=== PATIENT | female | born 1995 | race Caucasian/White ===

== ENCOUNTER 2022-02-12 07:14 | Outpatient (CLI) | payer BC, SELFPAY ==
--- NOTE | 2022-02-12 07:15 | CRLHL7_ITS ---
For Patients: As a result of the Cures Act, medical imaging exams and procedure reports are released immediately into your electronic medical record. You may view this report before your referring provider. If you have questions, please contact your health care provider. INDICATION: follow up dilated renal pelvis COMPARISON: 12/15/2021 TECHNIQUE: Real time greenwood scale imaging of the fetus was performed. FINDINGS: Sonographic imaging demonstrates a single living intrauterine gestation. Fetus demonstrates a regular cardiac rate of 144 beats per minute. Fetus has a vertex position. The placenta lies posterior. Amniotic fluid volume appears normal and there is a single deepest vertical pocket: 7.7 cm. The estimated weight is 1265gm which lies at the 52nd %. On the prior OB ultrasound exam dated 12/15/2021 the estimated weight was at the 45th%. BPD 80th percentile. HC 77th percentile. AC 64th percentile. FL 18th percentile. The HC/AC ratio measures 1.12 range (0.99-1.21). Mild bilateral pelviectasis is similar, measuring 4.6 millimeters on right and 2.8 millimeters on the left. IMPRESSION: Incidental minimal pelviectasis, considered normal in the 3rd trimester. Sonographic gestational age 29 weeks 1 day and sonographic due date 04/29/2022. Sonographic age 6 days ahead of the clinical age. Estimated weight 52nd percentile. Abdominal circumference 64th percentile. Dictated by Igor Gregg MD @ 02/12/2022 10:25:44 AM (Electronically Signed)
== END 2022-02-12 07:15 | disposition home or self-care (01) ==
PROVIDERS: Visit Provider Obstetrics & Gynecology
DX: O35.8XX0 Maternal care for other (suspected) fetal abnormality and damage, not applicable or unspecified (principal); Z3A.29 29 weeks gestation of pregnancy
CPT/HCPCS: 76816

== ENCOUNTER 2022-02-13 08:12 | Outpatient (CLI) | payer BC, SELFPAY ==
[2022-02-13 08:27] LABS: Glucose Fasting Check 84 mg/dl
[2022-02-13 12:57] LABS: Glucose GTT-Gestational 3 Hr 150 mg/dl (70-140)
[2022-02-13 12:57] LABS: Glucose 1 Hour Gest 178 mg/dl (70-180)
== END 2022-02-13 08:13 | disposition home or self-care (01) ==
LOC: NFLDREF 08:12
PROVIDERS: Visit Provider Obstetrics & Gynecology
DX: Z34.93 Encounter for supervision of normal pregnancy, unspecified, third trimester (principal); Z3A.28 28 weeks gestation of pregnancy
CPT/HCPCS: 82951; 82952

== ENCOUNTER 2022-03-17 21:56 | Outpatient (CLI) | payer BC, SELFPAY ==
--- NOTE | 2022-03-17 22:17 | CRLHL7_ITS ---
For Patients: As a result of the Century Cures Act, medical imaging exams and procedure reports are released immediately into your electronic medical record. You may view this report before your referring provider. If you have questions, please contact your health care provider. INDICATION: Marked variability. TECHNIQUE: Ultrasound OB pelvis transabdominal. Real-time greenwood-scale imaging of the fetus was performed without stress testing. COMPARISON: Pelvic ultrasound from 02/12/2022. FINDINGS: Single living intrauterine gestation. The placenta is fundal. Fetus heart activity: Regular cardiac rate at 139 beats per minute. Fetus has a cephalic orientation. Amniotic fluid volume appears normal. breathing movements, motion, and tone were all observed. IMPRESSION: Single viable intrauterine with a biophysical profile 03/05. Dictated by Hermes Mixon MD @ 03/17/2022 11:43:19 PM (Electronically Signed)
[2022-03-17 22:23] VITALS: BP 117/60; PULSE 82
[2022-03-17 22:24] VITALS: BP 117/60; PULSE 88; PULSE 92; RESP 18; TEMP 36.7; O2SAT 98
[2022-03-17 22:57] LABS: Fetal Fibronectin* Negative (Negative)
--- NOTE | 2022-03-18 00:24 | PC.OBNST ---
NST Note NST Note Start: 03/17/22 21:57 Freq: ONCE Status: Active Protocol: Document 03/18/22 00:21 EGM (Rec: 03/18/22 00:24 EG [id number]) NST Note 3 Para (# of births) 1 EDC 05/05/22 High Risk Factors Diabetes - Gestational Diet Controlled Patient Presented with Complaint(s) of Contractions/cramping,Other Other Complaints Patient concerned regarding increased frequency and strength of contractions and frantic movements which made it difficult to monitor heart rate on doppler at home. Reactive Yes Appropriate for Gestational Age Yes PABLO Armstrong, RN Date 03/18/22 Reactive Yes Appropriate for Gestational Age Yes PABLO Veloz, RN Date 03/18/22 OB NST charge Yes Complete NST Note via Write Note Yes The provider's electronic signature indicates the NST is reactive/appropriate for gestational age. *Note to provider: If an addendum is required, open the patient's chart and click on the note under the Nurse/Allied Health tab.
== END 2022-03-17 23:50 | disposition home or self-care (01) ==
LOC: OB OUT 21:56 → OB 23:44
PROVIDERS: Visit Provider Obstetrics & Gynecology
DX: O24.419 Gestational diabetes mellitus in pregnancy, unspecified control (principal); Z3A.31 31 weeks gestation of pregnancy
CPT/HCPCS: 59025; 76819; 84112; 99213

== ENCOUNTER 2022-04-12 13:48 | Outpatient (CLI) | payer BC, SELFPAY ==
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
--- NOTE | 2022-04-12 14:00 | CRLHL7_ITS ---
For Patients: As a result of the Century Cures Act, medical imaging exams and procedure reports are released immediately into your electronic medical record. You may view this report before your referring provider. If you have questions, please contact your health care provider. INDICATION: Third trimester scan, evaluate growth. Gestational diabetes. COMPARISON: 03/17/2022 TECHNIQUE: Real time greenwood scale imaging of the fetus was performed. FINDINGS: Sonographic imaging demonstrates a single living intrauterine gestation. Fetus demonstrates a regular cardiac rate of 141 beats per minute. Fetus has a vertex position. The placenta lies fundal. Amniotic fluid volume appears normal and there is a single deepest vertical pocket: 6.0 cm. The estimated weight is 2830gm which lies at the 36th %. On the prior OB ultrasound exam dated 02/12/2022 the estimated weight was at the 52nd%. BPD 80th percentile. HC 46th percentile. AC 34th percentile. FL 17th percentile. The HC/AC ratio measures 1.04 range (0.92-1.06). IMPRESSION: Sonographic gestational age 36 weeks 4 days and sonographic due date 05/06/2022. Good correlation with dates. Normal interval growth. Estimated weight 36th percentile. Abdominal circumference 34th percentile. Dictated by Igor Gregg MD @ 04/12/2022 2:48:03 PM (Electronically Signed)
== END 2022-04-12 13:49 | disposition home or self-care (01) ==
LOC: US 13:49
PROVIDERS: Visit Provider Obstetrics & Gynecology
DX: O24.419 Gestational diabetes mellitus in pregnancy, unspecified control (principal); Z3A.36 36 weeks gestation of pregnancy
CPT/HCPCS: 76816; 87081; 87653

== ENCOUNTER 2022-04-25 18:26 | Inpatient (IN) | payer BC, SELFPAY ==
[2022-04-25] VITALS (10 sets, daily range): BP systolic 108–130; BP diastolic 59–69; PULSE 90–101; RESP 16–20; TEMP 36.2–37; O2SAT 100; BMI 27.3
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
[2022-04-25] MEDS: MORPHINE 10 MG/ML inj IM (16:45)
[2022-04-25] MEDS: AMPICILLIN 2 GM in 0.9 % SODIUM CHLORIDE Mini-bag 100 ML IVPB (18:41)
[2022-04-25] MEDS: LACTATED RINGERS 1000 ML 1,000 ML 125 ML IV (18:41)
[2022-04-25 19:01] LABS: SARS PCR* Negative SARS-CoV-2 (Negative)
[2022-04-25 19:04] LABS: Basophils Percent Auto 0.1 % (0.0-3.0); Eosinophils Percent Auto 0.1 % (0.0-7.0); Hematocrit 40.9 % (33.0-51.0); Immature Granulocytes Abs Auto 0.12 K/uL (0.00-0.30); Lymphocytes Percent Auto 13.5 % (20-44); Mean Corpuscular HGB Conc 34 gm/dL (32-36); Mean Corpuscular Hemoglobin 30 pg (26-34); Mean Corpuscular Volume 87 fL (80-100); Monocytes Percent Auto 7.1 % (0.0-11.0); Neutrophils Percent Auto 78.3 % (42.0-72.0); Platelet Count* 160 K/uL (140-440); RDW Coefficient of Variation % 12.7 % (11.5-15.5); White Blood Count* 13.52 K/uL (4.50-11.00)
[2022-04-25 19:44] LABS: Slide Review Reflex No
[2022-04-25] MEDS: AMPICILLIN 1 GM in 0.9 % SODIUM CHLORIDE Mini-bag 100 ML IVPB (22:03)
--- NOTE | 2022-04-25 22:26 | P.LDBA_ITS ---
Subjective History of Present Illness Date Seen: 04/25/22 Narrative: Patient is being admitted to Labor and Delivery for labor. She is a 27 year old at 38 4/7 weeks gestation. She has been having contractions that are fairly regular but somewhat far apart since 0300 on 04/24/22. She had a visit this afternoon and her cervix was found to be 3 cm / 85% / -2. Contractions became stronger thereafter. She was admitted to Center after cervical change was noted on her exam. OB Problem List: 1.? Rheumatoid arthritis:? Has plan for Humira until 2.? Depression and anxiety, stable on sertraline --Patient desires to taper off in the 3rd trimester and be off prior to delivery 3.? Difficulty conceiving r/t PCOS, Conceived with letrozole. 4.? Recommended daily baby aspirin starting at 12 weeks due to history of rheumatoid arthritis 5. Mild bilateral pelviectasis measuring 4.1-4.5 millimeters. Follow-up exam in the 3rd trimester recommended (28wks). Remainder of the anatomic survey is normal. * 02/12/2022: Vtx. SDP:? 7.7 cm.? EFW 1265 g, 12 lb 13 oz, 52%.? BPD 80%, HC 70%, AC 64%, FL 18%.? Right renal pelvis 5 mm, left renal pelvis 3 mm:? Normal for gestation.? No follow-up needed 6. Frequent, painful contractions 01/22/2022 * FFN collected, neg * Wet prep, neg * SVE Long, thick, and closed * Hx of early painful ctx w/ previous beginning in 2nd trimester * Seeing chiropractor, wearing support binder, taking magnesium and calcium (doesn't help) * Continues to have regular contractions, less painful than before but consistent as of 01/25 * Offered Nifedipine 10 mg po QID PRN for contractions, Rx sent 01/25 7. Gestational diabetes A1 ? *1hr GTT 02/12/22: 143 ? *3hr GTT 02/13/22: Fast 88 (nl), 1hr 178 (nl),?2hr 167 (h),?3hr 150?(h). ? *02/14/22: Nutrition referral, glucometer, lancets and glucose strips ordered. ? *USN for EFW at 36 wks 04/12/2022:Vtx. SDP: 6.0cm. EFW:? 2830 g, 6 lb 4 oz, 36%. BPD 80%, HC 46%, AC 34%, FL 17%. 8. cardiac arrhythmia Noted on NST when the patient presented to the center on 03/17/22 w/ contractions and frantic movements Referral to [facility] for Lvl 2 USN and consultation ordered 03/18/22: both normal on 03/23/22, no arrhythmia noted. No additional testing indicated. 9.? GBS positive.? Antibiotics in labor Covid:? 2 dose, had 3rd booster. Flu: received DTAP: 03/09/22 Her full history and physical was dictated by Cristina Valencia on 04/12/22. Please see this for details. OB - H&P: Exam Physical Exam: Vital signs: Temp Pulse Resp BP Pulse Ox 98.1 F 96 16 108/59 L 100 04/25/22 18:44 04/25/22 21:46 04/25/22 18:44 04/25/22 21:46 04/25/22 21:47 Narrative: Cervix at admission, per RN: 5.5 / 80 / -1 / posterior / soft Cervix at 10:15 pM: 5.5 / 90 / -1 / midposition / soft AROM for clear fluid FHT: BAseline initially 150 at admit, rising slowly over the last hour or so to baseline of 180 / accels present / no decels / moderate variability. All blood sugars within normal ranges. OB - Problem Based A/P Additional Plan (1) Normal labor: Problem details: Now entering active phase. Category 2 status due to baseline 180. Last temp 36.5. Will give bolus and continue continuous EFW until back to normal baseline. Otherwise expectant management. Anticipate . Status: Acute (2) GBS (group B Streptococcus carrier), +RV culture, currently : Problem details: s/p 2 doses of IV ampicillin prior to AROM Status: Acute (3) Gestational diabetes: Status: Acute Plan: diet controlled, intrapartum sugars less than 120 continue to monitor per protocol (4) arrhythmia affecting , antepartum: Problem details: Current tachycardia does not represent arrhythmia; regular rhythym. Previous arrhythmia thought to be PACs Status: Acute
[2022-04-26] VITALS (27 sets, daily range): BP systolic 99–149; BP diastolic 54–78; PULSE 54–128; RESP 16–22; TEMP 36.4–37.2; O2SAT 99–100
[2022-04-26] MEDS: fentaNYL 100 MCG/2 ML inj 30 MCG INTRATHECA (02:30)
[2022-04-26] MEDS: LACTATED RINGERS 1000 ML 1,000 ML 125 ML IV (02:33)
--- NOTE | 2022-04-26 02:40 | PM.ANBPRC ---
[facility] Medical History (Updated 04/25/22 @ 22:36 by Ana Rosa Collier MD) Encounter for supervision of other normal , third trimester Fertility testing arrhythmia affecting , antepartum cardiac arrhythmia Gestational diabetes Intrauterine Leakage of amniotic fluid Painful micturition at early stage Suspected urinary tract infection Family History (Updated 01/24/22 @ 14:21 by Debbie De Dios) Mother Rheumatoid arthritis Social History Smoking Status: Never smoker Little interest or pleasure in doing things: several days Feeling down, depressed, or hopeless: more than half the days Meds Home Medications and Allergies Home Medications Medication Instructions Recorded Confirmed Type adalimumab 40 mg/0.4 mL See Rx Instructions subcut .COMPLEX 01/25/22 04/25/22 History subcutaneous pen kit prenat.vits,neda,ooy-mhhn-qloqq 1 tab PO QDAY 01/25/22 04/25/22 History sertraline 50 mg tablet 50 mg PO QDAY 04/12/22 04/25/22 History Allergies Allergy/AdvReac Type Severity Reaction Status Date / Time No Known Allergies Allergy Unknown Verified 04/25/22 13:42 Results Labs Labs: Laboratory Results - last 24 hr 04/25/22 04/25/22 04/25/22 18:01 18:20 18:20 WBC 13.52 H RBC 4.70 Hgb 14.0 Hct 40.9 MCV 87 MCH 30 MCHC 34 RDW Coeff of Kimberli 12.7 Plt Count 160 Neut % (Auto) 78.3 H Lymph % (Auto) 13.5 L Miner % (Auto) 7.1 Eos % (Auto) 0.1 Baso % (Auto) 0.1 Neut # (Auto) 10.60 H Lymph # (Auto) 1.80 Miner # (Auto) 1.00 H Eos # (Auto) 0.00 Baso # (Auto) 0.00 Abs Immat Gran (auto) 0.12 SARS-CoV-2 (PCR) Negative SARS-CoV-2 Blood Type A Positive Antibody Screen NEGATIVE Vital Signs Vital Signs: Last Vital Signs Temp 98.1 F 04/25/22 18:44 Pulse 99 04/26/22 02:38 Resp 16 04/25/22 18:44 BP 121/58 L 04/26/22 02:40 Pulse Ox 100 04/26/22 02:34 Weight: 70.085 kg Height: 160.02 cm Anesthesia Procedures Intrathecal Patient Location: OB Start Time: 02:00 Stop Time: 02:45 Start Date: 04/26/22 Stop Date: 04/26/22 Reason for Block: procedure for pain Patient Position: sitting Performed By: Francoise Serrano Preanesthetic Checklist: IV checked, site marked, risks and benefits discussed, monitors and equipment checked, pre-op evaluation, timeout performed and anesthesia consent Prep: chlorhexidine gluconate Monitoring: blood pressure monitoring, continuous pulse oximetry and heart rate Approach: midline Vertebral Space: lumbar (1-5) Needle Type: Quincke Injection Technique: single-shot Needle gauge: 25 Needle Length (cm): 10 cm
--- NOTE | 2022-04-26 02:43 | W.ANESCHARGE ---
Anesthesia Charges Start Date/Time Anesthesia Start Date: 04/26/22 Anesthesia Start Time: 02:00 Stop Date/Time Anesthesia Stop Date: 04/26/22 Anesthesia Stop Time: 02:45 Summary Emergency: No
[2022-04-26] MEDS: AMPICILLIN 1 GM in 0.9 % SODIUM CHLORIDE Mini-bag 100 ML IVPB (02:46)
[2022-04-26] MEDS: LIDOCAINE 1% MDV 20 ML INJECTION (03:33)
[2022-04-26] MEDS: OXYTOCIN 30 unit/500 ML in NS 30 UNIT/500 ML BAG 325 UNIT IVPB (03:33)
--- NOTE | 2022-04-26 03:52 | PM.OBPRCVD ---
Procedure Delivery date: 04/26/22 Procedure Done: [employer] Procedure Details: The patient is a 27 year-old G 3 P 1 woman admitted on 04/25/2022 at 38 Weeks, 4 Days gestation for labor.? Cervical exam on admission was 5.5 cm/80 % effaced/-1 station with membranes intact in vertex presentation.? Contractions were every 1.5-3 minutes.? heart rate demonstrated baseline 150 bpm with moderate variability, positive accelerations, no decelerations; a category 1 tracing.? AROM occurred at 10:05 p.m. with clear fluid. ? Labor Analgesia:? Only nitrous until more than 1 hour into 2nd stage. Thereafter, she had ITN ? Pitocin:? No ? Labor onset:? Slow progress until 5.5 cm, subsequently picked up after AROM ? Complete:? 12:55 a.m. on 04/26/2022 ? Pushing:? 12:55 a.m. on 04/26/2022 ? heart tones during active labor and second stage were notable for a baseline ranging from 160-180. Moderate variability throughout, and no recurrent decelerations. After an hour and 15 minutes of pushing, there was no descent of head. Yvan had intrathecal narcotic. Vaginal exam was consistent with OB presentation, this was confirmed on bedside ultrasound. head was lifted superiorly out of the pelvis and rotated clockwise in to an OA position. ? At 3:23 a.m. a viable female delivered in vertex RG presentation over small second-degree perineal laceration via spontaneous vaginal delivery.? was placed on maternal abdomen.? Cord was clamped and cut after it ceased to pulse.? Nose and mouth were bulb suctioned.? weight pending.? 8 at 1 minute and 9 at 5 minutes.? Shoulder dystocia: Now.? Nuchal cord: Yes, x1, loose, delivered through this. ? Placenta delivered spontaneously and complete at 3:37 a.m. with a 3 vessel cord. ? Mother and infant were stable after delivery. ? Lacerations:? Small second-degree midline perineal laceration, repaired with 3-0 Vicryl after infiltration with 9 mL of 1% lidocaine. ? Blood loss: 125 mL. Blood loss measurement type: QBL ? Sponge and needles counts are correct.
[2022-04-27 01:55] VITALS: BP 114/67; PULSE 61; RESP 16; TEMP 36.6
[2022-04-27 07:28] LABS: Hemoglobin* 11.7 gm/dL (12.0-16.0)
--- NOTE | 2022-04-27 08:02 | PM.OBDSVD1 ---
DS: Providers Provider Time Seen by Provider: 08:02 Date Seen: 04/27/22 Date of admission: 04/25/22 18:26 Primary care physician: Not a Local Provider Admitting Clinician: Sabiha Dominguez CNM Attending Physician on discharge: Sabiha Dominguez CNM DS: Diagnosis Discharge Diagnosis (1) Gestational diabetes: Status: Acute (2) Rheumatoid arthritis: Status: Acute (3) Plaque psoriasis: Status: Acute (4) Normal spontaneous vaginal delivery: Status: Acute (5) Anxiety and depression: Status: Acute (6) Lactating mother: Status: Acute (7) Second degree laceration of perineum, delivered, current hospitalization: Status: Acute Exam Const: Vital Signs, click to edit/add: Vital Signs - 24 hr 04/26/22 08:20 04/26/22 12:35 04/26/22 16:30 Temperature 99.0 F 98.5 F 97.8 F Pulse Rate [Blood Pressure Cuff] 72 54 L 64 Respiratory Rate 16 16 16 Blood Pressure [Ri ght Arm] 126/74 111/63 105/68 Oxygen Delivery Me thod Room Air Room Air Room Air 04/26/22 19:40 04/27/22 01:55 Temperature 97.6 F 97.8 F Pulse Rate [Blood Pressure Cuff] 69 61 Respiratory Rate 16 16 Blood Pressure [Ri ght Arm] 113/67 114/67 Oxygen Delivery Me thod Room Air Room Air Documenting provider has reviewed patient's vital signs: yes Common normals: no apparent distress, oriented x3, healthy appearing, alert and well nourished General appearance: cooperative and comfortable HENMT: Common normals: normocephalic Head and scalp: normocephalic Eye: General eye: normal appearance of both eyes Neck & C-Spine: Common normals: full ROM and supple General: normal visual inspection Chest: Common normals: inspection of chest normal Resp: Common normals: normal respiratory effort and clear to auscultation bilaterally Auscultation: clear to auscultation bilaterally Cardio: Common normals: regular rate and regular rhythm Rate: regular rate Rhythm: regular rhythm GI: Common normals: Normal to inspection, nondistended, normoactive bowel sounds present, soft to palpation and non-tender Palpation: soft : Common normals: external appearance normal (mild edema) Speculum exam - vagina: vaginal bleeding (Normal lochia) OB/external & speculum: Yes vaginal bleeding (Normal lochia) and Yes other (2nd degree well approximated ) Uterus: U/1 Lochia: small Back & Pelvis: Common normals: thoracic and lumbar spine normal to inspection Extremity: Common normals: normal to inspection, full ROM and no pedal edema Neuro: Common normals: oriented x3 Sensorium/orientation: alert Skin: Common normals: no rashes or lesions noted General skin exam: no rashes or lesions noted OB - DS: Summary Hospital Course Hospital Course: The patient is a 27 year old G 3 P 2 at 38.5 weeks gestation that was admitted to the Center on 04/25/22 for labor. She had an uncomplicated vaginal delivery. She delivered a viable female . She is breast feeding, which is going good. the patient has done well. Has had a bowel movement. Peripartum Data delivery method: Vaginal Laceration description: Perineal - 2nd Degree complications: none [place] Gender: Female Infant Discharge Plan: Home Status at Discharge Functional status at discharge: independent ambulation Overall status at discharge: patient is progressing back to baseline Time Spent with Patient Time attestation: Total time spent providing and/or coordinating discharge services: Discharge Plan Discharge Disposition: Home, Self-Care Date of Admission: 04/25/22 18:26 Attending Provider on Discharge: Sabiha Dominguez Primary Care Provider: Provider,Not a Local Condition: Stable Anticipated Discharge Date/Time: 04/27/22 12:16 Discharge Medications: New docusate sodium 100 mg Capsule 100 mg PO DAILY PRNQty: 100 0RF Rx Instructions: Take 1 cap 1-2 times a day as needed for constipation. ibuprofen 600 mg Tablet 600 mg PO Q6H PRNQty: 60 0RF Continued prenat.vits,neda,qax-hake-eegsg Tablet 1 tab PO QDAY adalimumab 40 mg/0.4 mL pen injector kit See Rx Instructions subcut .COMPLEX Hold Instructions: stopped at 28 wks Rx Instructions: inject one - 40 mg/0.4 mL pen every 2 weeks subcut sertraline 50 mg tablet 50 mg PO QDAY Discontinued (DME) blood-glucose meter Kit See Rx Instructions .Route Qty: 1 0RF Rx Instructions: As directed (DME) lancets [Accu-Chek Softclix Lancets] Misc See Rx Instructions .Route Qty: 200 2RF Rx Instructions: QID (DME) Blood Glucose Test Strip See Rx Instructions .Route Qty: 50 4RF Rx Instructions: QID (DME) [employer]entia countour test strips See Rx Instructions .Route .MEDSUPPLY Qty: 100 0RF Rx Instructions: QID testing (DME) [employer] countour See Rx Instructions .Route .MEDSUPPLY Qty: 1 0RF Rx Instructions: QID testing Discharge Orders: Discharge Order (Routine); Ordered 04/27/22 Ordered By: Sabiha Dominguez Patient Education: OB Over the Counter Medication Information, OB Vaginal/Breast Feeding Activity Restrictions/Additional Instructions: Follow up at 2 weeks and 6 weeks in the clinic. 2 hour glucose test with 6 week visit. Activity Level: Activity as Tolerated Discharge Diet: Regular Follow Up Appointments: Provider,Not a Local [Primary Care Provider] - Forms: MyHealth Info Instructions
[2022-04-27] MEDS: DOCUSATE SODIUM 100 MG CAPSULE PO (08:47)
[2022-04-27 08:50] VITALS: BP 121/76; PULSE 64; RESP 16; TEMP 36.6; O2SAT 98
== END 2022-04-27 10:50 | disposition home or self-care (01) | DRG 560 ==
LOC: OB OUT 18:27 → OB 18:27
PROVIDERS: Obstetrics & Gynecology; Admitting Provider Advanced Practice Midwife; Visit Provider Advanced Practice Midwife
DX: O24.420 Gestational diabetes mellitus in childbirth, diet controlled (principal); O99.824 Streptococcus B carrier state complicating childbirth; O70.1 Second degree perineal laceration during delivery; M06.9 Rheumatoid arthritis, unspecified; L40.0 Psoriasis vulgaris; O99.344 Other mental disorders complicating childbirth; F41.9 Anxiety disorder, unspecified; F32.A Depression, unspecified; Z3A.38 38 weeks gestation of pregnancy; Z37.0 Single live birth
CPT/HCPCS: 01967; 36415; 82962; 85018; 85025; 86850; 86900; 86901; 87635; A9270; J0290; J2270; J3010; J7120

== ENCOUNTER 2022-06-11 08:37 | Outpatient (CLI) | payer BC, SELFPAY ==
--- OUTSIDE RECORDS SUMMARY | 2022-06-11 08:40 | XMS_ITS | Clinical Summary ---
:1995 Author Organization [facility] Address [address] [address] Care Team Providers Name Role Phone Huyen Mandujano MD Primary Care Provider Source Comments You are receiving this document as you are listed as the primary care provider,follow-up provider, or the patient has been referred to you for consultation.This is in compliance with the Medicare and Medicaid EHR Incentive Program,which states Providers who transition their patient to another setting of careor provider of care or refers their patient to another provider of care shouldprovide summarycare record for each transition of care or referral. [employer] Allergies Active Allergy Reactions Severity Noted Date Comments Hydroxychloroquine 12/10/2019 Stomach u pset. Medications Medication Sig Dispensed Refills Start Date End Date Status ondansetron (ZOFRAN) 4 MG TK 1 T PO Q 6 H 0 12/07/19 20 Active tablet PRN medroxyPROGESTERone TK 1 T PO QD FOR 0 11/17/2019 Active (PROVERA) 10 MG tablet 10 DAYS certolizumab pegol 400 mg (2 4 Each 11 12/15/2019 Active (CIMZIA) 2 X 200 MG/ML syringes) subcu injectionIndications: on weeks 0, 2 Psoriatic Arthritis, and 4 then every L40.50 4 weeks thereafter Indications: Psoriasis associated with Arthritis, L40.50 Active Problems Problem Noted Date Psoriatic arthritis 12/10/2019 High risk medication use 12/10/2019 Episode of recurrent major depressive disorder 020 Anxiety disorder 12/10/2019 Irritable bowel syndrome without diarrhea 12/10/2019 Planned 12/10/2019 Immunizations Name Administration Dates Next Due PCV13 (Prevnar) 12/10/2019 Social History Tobacco Use Types Packs/Day Years Used Date Smoking Tobacco: Never Assessed Sex Assigned at Date Recorded Not on file Last Filed Vital Signs Vital Sign Reading Time Taken Comments Blood Pressure 115/73 12/10/2019 2:25 PM CDT Pulse 77 12/10/2019 2:25 PM CDT Temperature - - Respiratory Rate - - Oxygen Saturation - - Inhaled Oxygen Concentration - - Weight - - Height - - Body Mass Index - - Plan of Treatment Health Maintenance Due Date Last Done Comments Cervical Cancer Screening Due 1995 HepB (1) 1995 COVID-19 Vaccine (#1) 1995 HPV Vaccine (1 - 2-dose series) 02/25/2007 HIV Screening (Preventive 2012 Services) Adult Preventive Visit 02/25/2014 Influenza (#1) 2022 05/05/2020 DTaP/Tdap/Td (2 - Tdap) 08/08/2030 08/08/2020 Zoster/Shingles (1 of 2) 02/25/2046 Hep C Screening (Preventive Completed 12/10/2019 Services) Pneumococcal Aged Out 12/10/2019 No longer eligib le based on patient's age to complete this topic HepA Aged Out No longer eligib le based on patient's age to complete this topic Hib Aged Out No longer eligib le based on patient's age to complete this topic IPV (Polio) Aged Out No longer eligib le based on patient's age to complete this topic MCV4 Aged Out No longer eligib le based on patient's age to complete this topic Insurance Payer Benefit Plan / Subscriber ID Effective Phone Address T ype Group Dates PREFERREDONE PREFERREDONE [id number] 2019-Pres [phone] [address] OPEN ACCESS ent [id number] [place] [address] Care Teams Glass Blower Relationship Specialty Start Date End Date Huyen Mandujano MD PCP - General Obstetrics Gynecology 10/09/[address] [place] [address]
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
--- OUTSIDE RECORDS SUMMARY | 2022-06-11 08:40 | XMS_ITS | Encounter Summary ---
:1995 [facility] Address [address] [address] Care Team Providers Name Role Phone Huyen Mandujano MD Primary Care Provider Reason for Visit Reason Onset Date Comments Refill 12/15/2019 Encounter Details Date Type Department Care Team Description 12/15/2019 Refill [facility] [address], Refill Rheumatology [address] [place] [address] [place], [place] [id number] (Wo rk) Social History Tobacco Use Types Packs/Day Years Used Date Smoking Tobacco: Never Assessed Sex Assigned at Date Recorded Not on file documented as of this encounter Nursing Notes Sabiha Hernandez - 12/15/2019 9:14 AM CDT [facility] to [facility] pharmacy- [facility], Patient notified by letter with co-pay info. documented in this encounter Plan of Treatment Not on filedocumented as of this encounter Visit Diagnoses Diagnosis Psoriatic arthritis (HRC) Psoriatic arthropathy Planned documented in this encounter Care Teams Weather Algorithm Scientist Relationship Specialty Start Date End Date Huyen Mandujano MD PCP - General Obstetrics Gynecology 10/09/191999 [place], [place] [id number] documented as of this encounter
--- OUTSIDE RECORDS SUMMARY | 2022-06-11 08:40 | XMS_ITS | Encounter Summary ---
:1995 Author Organization Formerly [facility] Address [address], [place] [address] Care Team Providers Name Role Phone Huyen Mandujano MD Primary Care Provider Encounter Details Date Type Department Care Team Description 12/10/2019 Lab Visit [facility] 3850 Psoriatic arthritis (HRC); Laboratory High risk medication use [address] [place], [place] [id number] Social History Tobacco Use Types Packs/Day Years Used Date Smoking Tobacco: Never Assessed Sex Assigned at Date Recorded Not on file documented as of this encounter Plan of Treatment Not on filedocumented as of this encounter Procedures Procedure Name Priority Date/Time Associated Comments Diagnosis CBC AND DIFFERENTIAL Routine 12/10/2019 2:37 PM Psoriatic arth ritis Results for this PANEL CDT (HRC) procedure are in High risk the results medication use section. CREATININE / GFR Routine 12/10/2019 2:37 PM Psoriatic arthriti s Results for this CDT (HRC) procedure are in High risk the results medication use section. COMPLETE BLOOD Routine 12/10/2019 2:37 PM Psoriatic arthritis Results for this COUNT-W/DIFF CDT (HRC) procedure are in High risk the results medication use section. HEPATITIS C ANTIBODY, Routine 12/10/2019 2:37 PM Psoriatic art hritis Results for this WITH REFLEX CDT (HRC) procedure are in High risk the results medication use section. C-REACTIVE PROTEIN Routine 12/10/2019 2:37 PM Psoriatic arthri tis Results for this CDT (HRC) procedure are in High risk the results medication use section. HBSAG (HEPATITIS B Routine 12/10/2019 2:37 PM Psoriatic arthri tis Results for this SURFACE AG) CDT (HRC) procedure are in High risk the results medication use section. HEPATITIS B CORE,AB Routine 12/10/2019 2:37 PM Psoriatic arthr itis Results for this CDT (HRC) procedure are in High risk the results medication use section. ALT (SGPT) Routine 12/10/2019 2:37 PM Psoriatic arthritis Re sults for this CDT (HRC) procedure are in High risk the results medication use section. AST Routine 12/10/2019 2:37 PM Psoriatic arthritis Re sults for this CDT (HRC) procedure are in High risk the results medication use section. ALBUMIN Routine 12/10/2019 2:37 PM Psoriatic arthritis Re sults for this CDT (HRC) procedure are in High risk the results medication use section. ESR Routine 12/10/2019 2:37 PM Psoriatic arthritis Re sults for this CDT (HRC) procedure are in High risk the results medication use section. TB QUANTIFERON GOLD Routine 12/10/2019 2:36 PM Psoriatic arthr itis Results for this PLUS CDT (HRC) procedure are in High risk the results medication use section. TB QUANTIFERON GOLD Routine 12/10/2019 2:36 PM Psoriatic arthr itis Results for this PLUS MITOGEN CDT (HRC) procedure are in High risk the results medication use section. TB QUANTIFERON GOLD Routine 12/10/2019 2:36 PM Psoriatic arthr itis Results for this PLUS TB2 CDT (HRC) procedure are in High risk the results medication use section. TB QUANTIFERON GOLD Routine 12/10/2019 2:36 PM Psoriatic arthr itis Results for this PLUS TB1 CDT (HRC) procedure are in High risk the results medication use section. TB QUANTIFERON GOLD Routine 12/10/2019 2:36 PM Psoriatic arthr itis Results for this PLUS NIL CDT (HRC) procedure are in High risk the results medication use section. documented in this encounter Results (ABNORMAL) Complete Blood Count-W/Diff (12/10/2019 2:37 PM CDT) [facility] Method Time Signature WBC 6.6 3.5 - 10.5 12/10/2019 [facility] x10(9)/L 2:41 PM CDT 3850 LABORATORY RBC 5.30 (H) 3.90 - 12/10/2019 [facility] 5.03 2:41 PM CDT 3850 x10(12)/L LABORATORY Hemoglobin 15.3 12.0 - 12/10/2019 [facility] 15.5 g/dL 2:41 PM CDT 3850 LABORATORY HCT 45.0 (H) 34.9 - 12/10/2019 [facility] 44.5 % 2:41 PM CDT 3850 LABORATORY MCV 84.9 80.0 - 12/10/2019 [facility] 100.0 fL 2:41 PM CDT 3850 LABORATORY MCH 28.9 27.6 - 12/10/2019 [facility] 33.3 pg 2:41 PM CDT 3850 LABORATORY MCHC 34.0 31.5 - 12/10/2019 [facility] 35.2 g/dL 2:41 PM CDT 3850 LABORATORY RDW 12.2 11.9 - 12/10/2019 [facility] 15.5 % 2:41 PM CDT 3850 LABORATORY Platelets 193 150 - 450 12/10/2019 [facility] x10(9)/L 2:41 PM CDT 3850 LABORATORY Automated NRBC 0 <=0 /100 12/10/2019 [facility] WBC 2:41 PM CDT 3850 LABORATORY Neutrophil 3.8 1.7 - 7.0 12/10/2019 [facility] Absolute 10(9)/L 2:41 PM CDT 3850 LABORATORY Lymphocyte 2.2 1.0 - 4.8 12/10/2019 [facility] Absolute 10(9)/L 2:41 PM CDT 3850 LABORATORY Monocytes 0.4 0.2 - 0.9 12/10/2019 [facility] Absolute 10(9)/L 2:41 PM CDT 3850 LABORATORY Eosinophil 0.1 0.0 - 0.5 12/10/2019 [facility] Absolute 10(9)/L 2:41 PM CDT 3850 LABORATORY Basophil 0.0 0.0 - 0.3 12/10/2019 [facility] Absolute 10(9)/L 2:41 PM CDT 3850 LABORATORY Immature Gran % 0.5 0.0 - 0.5 12/10/2019 [facility] % 2:41 PM CDT 3850 LABORATORY Specimen Anatomical Collection Method / Collection Time Recei pancho Time (Source) Location / Volume Laterality Blood Venipuncture / 12/10/2019 2:37 12/10/2019 2:37 Unknown PM CDT PM CDT Ayanna Whitley MD LAB_1 Performing Organization Address [facility] Code Phon e Number [facility] [address] [place] [phone] [phone] HCAB - Hepatitis C Virus Khloe with Reflex In-House (12/10/2019 2:37 PM CDT) [facility] Time Signature Hepatitis C Negative Negative 12/10/2019 [facility] Antibody (Non (Non 5:59 PM CDT LABORATORY Reactive) Reactive) Comment: Antibodies to HCV not detected. Does not exclude the possiblity of exposure to HCV. Specimen Anatomical Collection Method / Collection Time Recei pancho Time (Source) Location / Volume Laterality Blood Venipuncture / 12/10/2019 2:37 12/10/2019 2:37 Unknown PM CDT PM CDT Ayanna Whitley MD LAB_1 Performing Organization Address [facility] Code Phon e Number [facility] [address] [place] [address] HBAG - Hepatitis B Surf Ag (12/10/2019 2:37 PM CDT) [facility] Method Time [facility] Hepatitis B Negative Negative 12/10/2019 [facility] Surface (Non (Non 5:59 PM CDT LABORATORY Antigen Reactive) Reactive) Specimen Anatomical Collection Method / Collection Time Recei pancho Time (Source) Location / Volume Laterality Blood Venipuncture / 12/10/2019 2:37 12/10/2019 2:37 Unknown PM CDT PM CDT Ayanna Whitley MD LAB_1 Performing Organization Address City/[facility] Code Phon e Number [facility] [address] [place] [address] HBCB - Hepatitis B Core Antibody Total (12/10/2019 2:37 PM CDT) [facility] Method Time Signature Hepatitis B Negative Negative 12/10/2019 [facility] Core Antibody (Non (Non 7:03 PM CDT LABORATORY Reactive) Reactive) Specimen Anatomical Collection Method / Collection Time Recei pancho Time (Source) Location / Volume Laterality Blood Venipuncture / 12/10/2019 2:37 12/10/2019 2:37 Unknown PM CDT PM CDT Ayanna Whitley MD LAB_1 Performing Organization Address City/[facility]/ZIP Code Phon e Number [facility] [address] [place] [address] CREAT - Creatinine (12/10/2019 2:37 PM CDT) P athologist Signature Creatinine 0.83 0.55 - 12/10/2019 [facility] 1.02 mg/dL 3:03 PM CDT [address]50 LABORATORY GFR, Estimated >60 >60 12/10/2019 [facility] mL/min/1.7 3:03 PM CDT 3850 LABORATORY 3m2 GFR, Est If >60 >60 12/10/2019 [facility] mL/min/1.7 3:03 PM CDT 3850 LABORATORY Gabonese 3m2 Specimen Anatomical Collection Method / Collection Time Recei pancho Time (Source) Location / Volume Laterality Blood Venipuncture / 12/10/2019 2:37 12/10/2019 2:37 Unknown PM CDT PM CDT Ayanna Whitley MD LAB_1 Performing Organization Address [facility]/ZIP Code Phon e Number [facility] [address] [place], [place] [phone] [place] [phone] ALB - Albumin Only (Serum) (12/10/2019 2:37 PM CDT) P athologist Signature Albumin 3.9 3.5 - 5.0 12/10/2019 [facility] g/dL 3:03 PM CDT 3850 LABORATORY Specimen Anatomical Collection Method / Collection Time Recei pancho Time (Source) Location / Volume Laterality Blood Venipuncture / 12/10/2019 2:37 12/10/2019 2:37 Unknown PM CDT PM CDT Ayanna Whitley MD LAB_1 Performing Organization Address City/[facility]/ZIP Code Phon e Number [facility] [address] [place], [place] [address] [address] ALT - Alanine Aminotransferase (12/10/2019 2:37 PM CDT) athologist Signature ALT (SGPT) 13 0 - 55 U/L 12/10/2019 [facility] 3:03 PM CDT 3850 LABORATORY Specimen Anatomical Collection Method / Collection Time Recei pancho Time (Source) Location / Volume Laterality Blood Venipuncture / 12/10/2019 2:37 12/10/2019 2:37 Unknown PM CDT PM CDT Ayanna Whitley MD LAB_1 Performing Organization Address City/[facility]/ZIP Code Phon e Number [facility] [address] [place], [place] [phone] [address] AST - Aspartate Aminotransferase (12/10/2019 2:37 PM CDT) athologist Signature AST (SGOT) 14 10 - 40 U/L 12/10/2019 [facility] 3:03 PM CDT 3850 LABORATORY Specimen Anatomical Collection Method / Collection Time Recei pancho Time (Source) Location / Volume Laterality Blood Venipuncture / 12/10/2019 2:37 12/10/2019 2:37 Unknown PM CDT PM CDT Ayanna Whitley MD LAB_1 Performing Organization Address City/[facility]/ZIP Code Phon e Number [facility] [address] [place], [place] [address] [phone] ESR - Sedimentation Rate (12/10/2019 2:37 PM CDT) [facility] Method Time Signature Sedimentation Rate 5 0 - 20 12/10/2019 [facility] ARK mm/hr 3:26 PM CDT 3850 LABORATORY Specimen Anatomical Collection Method / Collection Time Recei pancho Time (Source) Location / Volume Laterality Blood Venipuncture / 12/10/2019 2:37 12/10/2019 2:37 Unknown PM CDT PM CDT Ayanna Whitley MD LAB_1 Performing Organization Address City/[facility]/ZIP Code Phon e Number [facility] [address] [place], [place] [phone] [address] CRP - C Reactive Protein (12/10/2019 2:37 PM CDT) athologist Signature C-Reactive <0.5 0.0 - 0.7 12/10/2019 [facility] Protein mg/dL 3:03 PM CDT 3850 LABORATORY Specimen Anatomical Collection Method / Collection Time Recei pancho Time (Source) Location / Volume Laterality Blood Venipuncture / 12/10/2019 2:37 12/10/2019 2:37 Unknown PM CDT PM CDT Ayanna Whitley MD LAB_1 Performing Organization Address City/[facility] Phon e Number [facility] [address] [place], [place] [phone] LAB[address] [facility] [address] TB QuantiFERON Gold Plus Mitogen (12/10/2019 2:36 PM CDT) athologist Signature MITOGEN >10.000 IU/mL 12/14/2019 [facility] 12:16 PM CDT LABORATORY Specimen Anatomical Collection Method / Collection Time Recei pancho Time (Source) Location / Volume Laterality Blood Venipuncture / 12/10/2019 2:36 12/10/2019 2:37 Unknown PM CDT PM CDT Ayanna Whitley MD LAB_1 Performing Organization Address [facility] Phon e Number [facility] [address] [place] [address] TB QuantiFERON Gold Plus TB2 (12/10/2019 2:36 PM CDT) athologist Signature TB2 0.028 IU/mL 12/14/2019 [facility] 12:18 PM CDT LABORATORY Specimen Anatomical Collection Method / Collection Time Recei pancho Time (Source) Location / Volume Laterality Blood Venipuncture / 12/10/2019 2:36 12/10/2019 2:37 Unknown PM CDT PM CDT Ayanna Whitley MD LAB_1 Performing Organization Address City/[facility] Phon e Number [facility] [address] [place] [address] TB QuantiFERON Gold Plus TB1 (12/10/2019 2:36 PM CDT) P athologist Signature TB1 0.035 IU/mL 12/14/2019 [facility] 12:19 PM CDT LABORATORY Specimen Anatomical Collection Method / Collection Time Recei pancho Time (Source) Location / Volume Laterality Blood Venipuncture / 12/10/2019 2:36 12/10/2019 2:37 Unknown PM CDT PM CDT Ayanna Whitley MD LAB_1 Performing Organization Address City/State/ZIP Code Phon e Number [facility] [address] [place] [address] TB QuantiFERON Gold Plus NIL (12/10/2019 2:36 PM CDT) Patholo gist Method Time Signature TB QuantiFERON M. M. 12/14/2019 [facility] Gold Plus tuberculosis tuberculosis 1:07 PM LABORATORY infection NOT infection NOT CDT likely likely NIL 0.009 IU/mL 12/14/2019 [facility] 1:07 PM LABORATORY CDT TB1-NIL 0.03 IU/mL 12/14/2019 [facility] 1:07 PM LABORATORY CDT TB2-NIL 0.02 IU/mL 12/14/2019 [facility] 1:07 PM LABORATORY CDT Mitogen-NIL >9.99 IU/mL 12/14/2019 [facility] 1:07 PM LABORATORY CDT Specimen Anatomical Collection Method / Collection Time Recei pancho Time (Source) Location / Volume Laterality Blood Venipuncture / 12/10/2019 2:36 12/10/2019 2:37 Unknown PM CDT PM CDT Narrative [facility] - 12/14/2019 1:07 P M CDT Nil ?TB1-Nil ? TB2-Nil ?Mitogen-Nil ??Result ?Interpretation (IU/ml) ??(IU/mL) ? (IU/mL) ?(IU/mL) <=8.0 ? >=0.35 & ? Any ?Any ?Positive ?M. tuberculosis ?>=25% Nil ?infection likely <=8.0 ? Any ?>=0.35 & ? Any ?Positive ?M. tuberculosis ? >=25% Nil ? infection likely <=8.0 ? <0.35 or ? <0.35 or ? >=0.50 ? Negative ?M. tuberculosis ?>=0.35 & ? >=0.35 & ?infection NOT ?<25% Nil ? <25% Nil ?likely <=8.0 ? <0.35 or ? <0.35 or ? <0.50 ? Indeterminate ??M. tuberculosis ?>=0.35 & ? >=0.35 & ?infection cannot ?<25% Nil ? <25% Nil ?be determined >8.0 ?Any ?Any ?Any ? Indeterminate ??M. tuberculosis ? infection cannot ? be determined. Important: Diagnosing or excluding tuber culosis disease, and assessing the probability of LTBI, requires a combination of epidemiological, historical, medical, and diagnostic findings that should be emily en into account when interpreting QFT-Pl us results. See general guidance on the diagnosis and treatment of TB disease and LTBI (https://www.cdc.gov/tb/publications/guidelines/default.htm). The magnitude of the measured IFN-gamma level cannot be correlated to stage or degree of infection, level of immune responsiveness, or likelihood for progression to active disease. A positive TB respons e in persons who are negative to Mitogen is rare, but has been seen in patients with TB disease. This indicates the IFN-gamma response to TB antigens is greater than that to Mitogen, which is possible a s the level of Mitogen does not maximall y stimulate IFN-gamma production by lymphocytes. Ayanna Whitley MD LAB_1 Performing Organization Address City/State/ZIP Code Phon e Number [facility] [address] [place] [address] documented in this encounter Visit Diagnoses Diagnosis Psoriatic arthritis (HRC) Psoriatic arthropathy High risk medication use Encounter for long-term (current) use of other medications documented in this encounter Care Teams Mold Closer Relationship Specialty Start Date End Date Huyen Mandujano MD PCP - General Obstetrics Gynecology 10/09/191999 [place] [address] documented as of this encounter
--- OUTSIDE RECORDS SUMMARY | 2022-06-11 08:40 | XMS_ITS | Encounter Summary ---
:1995 Author Organization [facility] Address [address] [place] [address] Care Team Providers Name Role Phone Huyen Mandujano MD Primary Care Provider Reason for Visit Reason Comments Future Appointments Tried accessing [facility] re Encounter Details Date Type Department Care Team Description 12/08/2019 Notes/Orders [facility] [address], Rheumatology MD Ayanna [address] [place] [address] [place] [address] [phone] (Wo rk) Social History Tobacco Use Types Packs/Day Years Used Date Smoking Tobacco: Never Assessed Sex Assigned at Date Recorded Not on file documented as of this encounter Plan of Treatment Not on filedocumented as of this encounter Visit Diagnoses Not on filedocumented in this encounter Care Teams Patient Navigator Relationship Specialty Start Date End Date Huyen Mandujano MD PCP - General Obstetrics Gynecology 10/09/191999 [place] [address] documented as of this encounter
--- OUTSIDE RECORDS SUMMARY | 2022-06-11 08:40 | XMS_ITS | Encounter Summary ---
:1995 Author Organization [facility] Address [address] [place] [address] Care Team Providers Name Role Phone Huyen Mandujano MD Primary Care Provider Encounter Details Date Type Department Care Team Description 01/01/2020 Notes/Orders [facility] [address], Rheumatology MD Ayanna [address] [place] [address] [place] [address] [phone] (Wo rk) Social History Tobacco Use Types Packs/Day Years Used Date Smoking Tobacco: Never Assessed Sex Assigned at Date Recorded Not on file documented as of this encounter Plan of Treatment Not on filedocumented as of this encounter Visit Diagnoses Not on filedocumented in this encounter Care Teams Adult Basic Education Instructor Relationship Specialty Start Date End Date Huyen Mandujano MD PCP - General Obstetrics Gynecology 10/09/191999 [place] [address] documented as of this encounter
--- OUTSIDE RECORDS SUMMARY | 2022-06-11 08:40 | XMS_ITS | Encounter Summary ---
:1995 [facility] Address [address] [place] [address] Care Team Providers Name Role Phone Huyen Mandujano MD Primary Care Provider Reason for Visit Reason Comments CONSULT Encounter Details Date Type Department Care Team Description 12/10/2019 Office Visit [facility] [address] arthritis (HRC) (Primary Dx); Rheumatology MD Ayanna High risk medication use; [address] [place] [address] [phone] (Wo rk) Social History Tobacco Use Types Packs/Day Years Used Date Smoking Tobacco: Never Assessed Sex Assigned at Date Recorded Not on file documented as of this encounter Last Filed Vital Signs Vital Sign Reading Time Taken Comments Blood Pressure 115/73 12/10/2019 2:25 PM CDT Pulse 77 12/10/2019 2:25 PM CDT Temperature - - Respiratory Rate - - Oxygen Saturation - - Inhaled Oxygen Concentration - - Weight - - Height - - Body Mass Index - - documented in this encounter Progress Notes Ayanna Whitley MD - 12/10/2019 1:30 PM CDT Subjective: I was requested by Dr. Huyen Mandujano to evaluate the patient for psoriatic arthritis. History of present illness: A 24-year-old female who came in here for an evaluation and continuing care for psoriatic arthritis. The patient started having symptoms approximately 4 years ago when she was 20 years old. She noticedthat her both knees especially on the left more than the right side became swollen for unclear reason. Although she was active growing up playing sport, she did not recall of having had an obvious injury or trauma before the onset. The degree of swelling can fluctuate. Subsequently, she also developedsimilar symptoms over both ankles and right wrist. The swelling of the right wrist and ankles can fluctuate as well. The symptoms are associated with significant morning stiffness which lasts 1-2 hours. She was subsequently evaluated with her automatic lathe tender at [facility]. This outside record was not available. She was told to have rheumatoid arthritis but the blood tests were negative for rheumatoid arthritis. Note that she did not have clinical psoriasis at that time. She was treated with h ydroxychloroquine. Although hydroxychloroquine seemed to be somewhat helpful for her joint symptoms,it caused significant GI intolerance. She also developed psoriasis while taking hydroxychloroquine. This was subsequently discontinued and replaced with sulfasalazine. Sulfasalazine, however, was not affective. She subsequently transferred her rheumatology care to Dr[facility] of [facility]. Dr. Hanna decided to use methotrexate for her. The dose was slowly increased to 15 mg weekly. This outside records were available for me to review. She was found to have negative CHARLES, rheumatoid factor and CCP. The diagnosis of psoriatic arthritis was made. According to her, methotrexate was quite helpful to help for both psoriasis and her joint symptoms. However, she had to discontinue methotrexate a year ago when she was and started thinking about trying to conceive. She is not currently. She is [facility] She would like to know what medication can be used while trying to conceive and during . Her psoriasis has come back since she stopped methotrexate. They are located over left anterior leg,scalp areas. Her joint symptoms have become more as well. They involve most over both knees, and both ankle areas. Her right wrist is not swollen currently. She has no significant axial joint symptoms.She also reported no prior or history of ocular symptoms to suggest iritis/uveitis, GI symptoms to suggest inflammatory bowel disease, swollen tendon insertion points to suggest enthesitis or dactylitis. No known ischemic heart disease/congestive heart failure, hepatic/renal disease, prior blood transfusion, history of unexplained pericardial/pleural effusion, history of unexplained nephritis/proteinuria, bleeding tendency, peptic ulcer disease/GI bleeding. Her maternal uncle has psoriasis. A few cousins also have psoriasis. Mother has rheumatoid arthritis. Maternal grandmother has gout and rheumatoid arthritis. An uncle also has rheumatoid arthritis. There is no obvious family history of psoriatic arthritis, inflammatory bowel disease, iritis/uveitis, spondylitis, systemic lupus or lupus related conditions, gout or pseudogout. A complete review of the systems is otherwise unremarkable except for anxiety and history of depression. Past Medical History: Psoriasis/psoriatic arthritis. Irritable bowel syndrome. Myopia. Major depression. Anxiety disorder. 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 Never a smoker. She drinks alcohol infrequently. . She is trying to conceive at the moment. Current medications: Please see the most updated medication lists in the EMR. These are reviewed. Adverse drug reactions: Hydroxychloroquine was associated with GI side effects. Physical Examination: BP 115/73 (BP Location: Left Arm, BP Cuff Size: Regular) Pulse 77 General appearance: A young female who was not in acute physical distress. Skin: Typical psoriatic plaques over the right-sided frontal area, bilateral post auricular hair lines, left anterior leg. Few pitted nails of fingers. No tophus, nodules, open-wound ulcers, Raynaud changes, telangiectasia, sclerodermatous and dermatomyositis skin changes, or anything suggesting vascul itis, erythema nodosum. Normal nailfold capillaries. HEENT: Psoriasis on the scalp as described above. No conjunctivitis, scleritis or active uveitis or synaechia. Normal extra ocular movements. No sinus tenderness. No malar rash, discoid rash, oral or nasal mucosal ulcers. No nasal septal perforation. No thyromegaly. Respiratory: Normal respiratory effort. Lungs are clear with good breath sounds. Heart: RR without audible murmurs, rubs, or gallops. Musculoskeletal exams: All 4 extremities were examined. Minimal right knee effusion as clinically detectable by positive bulge sign. No significant effusion on the left knee. Negative Crystal's test. Negative drawer sign. Mild tenderness across ankle joints on both sides with minimal possible synovitis on the left ankle. No significant synovitis/inflammatory arthritis/dactylitis or effusion in any other remaining joints. Normal gait, normal muscle power and tone. Laboratory exams: No laboratory evaluation within [facility]. Outside records through Care Everywhere: On 06/17/2018, normal ALT/AST. White blood cell 8.6, hemoglobin 14, platelet count 197. On 01/28/2018, white blood cell 8.6, hemoglobin 14.6, platelet count 185. Normal serum electrolytes. Serum creatinine 0.86. Total albumin 4.0, normal total protein and globulin. Normal alkaline phosphatase, AST/ALT. On 03/29/2017, white blood cells 7.2, hemoglobin 15, platelet count 201. Serum creatinine 0.86. Normal AST/ALT. On 03/25/2017, negative TB gold QuantiFERON. On 07/17/2016, ESR 12. On 08/08/2015, negative SSB, SSA-60/52, ESR 13, C-reactive protein 0.27. Assessment and plans: 1. Psoriatic arthritis 2. Wish to become , planned . 3. Previous failed hydroxychloroquine (GI intolerance), sulfasalazine (ineffective) Pain is rated as 3.5. RAPID 3 score is 8.5. The patient has clinical psoriasis. She also has mild right knee joint effusion, mild synovitis leftwrist joint with significant morning stiffness. She also reported intermittent right wrist swelling and left knee swelling which are not found on examination. This clinical presentation is consistent with psoriatic arthritis involving peripheral joints. She has not had inflammatory back symptoms to suggest spondylitis associated with psoriatic arthritis, GI symptoms to suggest inflammatory bowel disease or ocular symptoms to suggest iritis/uveitis. As the patient is actively having an evaluation for ongoing infertility and planning to conceive, medication which is teratogenic should be avoided. I discussed with the patient about my clinical impression as above. Information related to medications which are decently safe, completely safe, highly recommended/conditionally recommended and contraindicated to be used before conception, during conception, and during nursing was printed out for her to review. I told her that Tylenol is safe although this is not usually affective. Nonsteroidal anti-inflammatory medication should be avoided during pregnancies especially third trimester to avoid problems related to persistent PDA. Sulfasalazine and hydroxychloroquine are decently safe to be used during pregnan cy but they were either not tolerated (hydroxychloroquine) or not effective (sulfasalazine). Methotrexate and leflunomide are contraindicated. We do not have good data regarding safety during pregnancyfor abatacept, SHANNA inhibitor (Xeljanz), apremilast (Otezla). The low-dose prednisone does not cross the placenta and this is usually save although higher dose more than 20-30 mg a day has been shown to possibly cross placenta and rarely can be associated with cleft lips/palate. The intra- articular cortisone injection is safe. We DO have good safety data to be used before conception, during conception after conception for TNFblockers Cimzia. This will be my first choice to be recommended for her. The other TNF blockers including Enbrel, Humira and Remicade also have decent safety data to be used during but the data is not as strong as Cimzia. I discussed with her about side effects and benefits of TNF blockers. Discussed with the patient about side effects of TNF blockers. These include injected site reaction/infusion reaction, increased risks of infections/opportunistic infections/reactivation of TB, rare tumors/cancers, lupus-like conditions, multiple sclerosis-like condition, worsening heart failure, rare cytopenia. Through the shared decision-making process, we mutually agreed to use Cimzia. I will put her on Cimzia 400 mg on day 1, day 2 weeks, they 4 weeks, then 400 mg every 4 weeks. She will have blood tests today for CBC metabolic profile, sed rate and CRP, T spot, hepatitis-B and C serologies. If Cimzia is not covered by her insurance, the alternative TNF emeli will be used instead. Prevnar was recommended and given to her today. Influenza vaccination when this is available in fall. Pneumovax will be given approximately 8 weeks or longer after Prevnar. I will correspond with her regarding the blood test results. I suggest a clinical follow-up again in2 months. She was happy with the plan. Total time 60 minutes, 40 minutes counseling. CC: Huyen Mandujano MD [address] [place] [address] documented in this encounter Plan of Treatment Not on filedocumented as of this encounter Results HCAB - Hepatitis C Virus Khloe with Reflex In-House (12/10/2019 2:37 PM CDT) [facility] Method Time Signature Hepatitis C Negative Negative 12/10/2019 [facility] Antibody (Non (Non 5:59 PM CDT LABORATORY Reactive) Reactive) Comment: Antibodies to HCV not detected. Does not exclude the possiblity of exposure to HCV. Specimen Anatomical Collection Method / Collection Time Recei pancho Time (Source) Location / Volume Laterality Blood Venipuncture / 12/10/2019 2:37 12/10/2019 2:37 Unknown PM CDT PM CDT Ayanna Whitley MD LAB_1 Performing Organization Address [facility] Phon e Number [facility]ORATORY [facility] [place] [address] HBAG - Hepatitis B Surf Ag (12/10/2019 2:37 PM CDT) [facility] Method Time Signature Hepatitis B Negative Negative 12/10/2019 [facility] Surface (Non (Non 5:59 PM CDT LABORATORY Antigen Reactive) Reactive) Specimen Anatomical Collection Method / Collection Time Recei pancho Time (Source) Location / Volume Laterality Blood Venipuncture / 12/10/2019 2:37 12/10/2019 2:37 Unknown PM CDT PM CDT Ayanna Whitley MD LAB_1 Performing Organization Address [facility] Phon e Number [facility] [address] [place] [address] HBCB - Hepatitis B Core Antibody Total (12/10/2019 2:37 PM CDT) [facility] Method [place] Signature Hepatitis B Negative Negative 12/10/2019 [facility] Core Antibody (Non (Non 7:03 PM CDT LABORATORY Reactive) Reactive) Specimen Anatomical Collection Method / Collection Time Recei pancho Time (Source) Location / Volume Laterality Blood Venipuncture / 12/10/2019 2:37 12/10/2019 2:37 Unknown PM CDT PM CDT Ayanna Whitley MD LAB_1 Performing Organization Address [facility] Phon e Number [facility] [address] [place] [address] CREAT - Creatinine (12/10/2019 2:37 PM CDT) athologist Signature Creatinine 0.83 0.55 - 12/10/2019 [facility] 1.02 mg/dL 3:03 PM CDT [address] LABORATORY GFR, Estimated >60 >60 12/10/2019 [facility] mL/min/1.7 3:03 PM CDT 3850 LABORATORY 3m2 GFR, Est If >60 >60 12/10/2019 [facility] mL/min/1.7 3:03 PM CDT [address] LABORATORY [place] 3m2 Specimen Anatomical Collection Method / Collection Time Recei pancho Time (Source) Location / Volume Laterality Blood Venipuncture / 12/10/2019 2:37 12/10/2019 2:37 Unknown PM CDT PM CDT Ayanna Whitley MD LAB_1 Performing Organization Address [facility]/ZIP [facility] Phon e Number [place] [address] [place] [address] [phone] ALB - Albumin Only (Serum) (12/10/2019 2:37 PM CDT) athologist Signature Albumin 3.9 3.5 - 5.0 12/10/2019 [facility] g/dL 3:03 PM CDT [address] LABORATORY Specimen Anatomical Collection Method / Collection Time Recei pancho Time (Source) Location / Volume Laterality Blood Venipuncture / 12/10/2019 2:37 12/10/2019 2:37 Unknown PM CDT PM CDT Ayanna Whitley MD LAB_1 Performing Organization Address [facility]/ZIP Code Phon e Number [facility] [address] [place] [address] [address] ALT - Alanine Aminotransferase (12/10/2019 2:37 PM CDT) athologist Signature ALT (SGPT) 13 0 - 55 U/L 12/10/2019 [facility] 3:03 PM CDT [address] LABORATORY Specimen Anatomical Collection Method / Collection Time Recei pancho Time (Source) Location / Volume Laterality Blood Venipuncture / 12/10/2019 2:37 12/10/2019 2:37 Unknown PM CDT PM CDT Ayanna Whitley MD LAB_1 Performing Organization Address [facility]/ZIP [facility] Phon e Number [facility] [address] [place], [place] [phone] [address] AST - Aspartate Aminotransferase (12/10/2019 2:37 PM CDT) athologist Signature AST (SGOT) 14 10 - 40 U/L 12/10/2019 [facility] 3:03 PM CDT [address] LABORATORY Specimen Anatomical Collection Method / Collection Time Recei pancho Time (Source) Location / Volume Laterality Blood Venipuncture / 12/10/2019 2:37 12/10/2019 2:37 Unknown PM CDT PM CDT Ayanna Whitley MD LAB_1 Performing Organization Address [facility]/ZIP Code Phon e Number [facility] [address] [place], [place] [address] [address] ESR - Sedimentation Rate (12/10/2019 2:37 PM CDT) [facility] gist Method Time Signature Sedimentation Rate 5 0 - 20 12/10/2019 [facility] ARK mm/hr 3:26 PM CDT [address] LABORATORY Specimen Anatomical Collection Method / Collection Time Recei pancho Time (Source) Location / Volume Laterality Blood Venipuncture / 12/10/2019 2:37 12/10/2019 2:37 Unknown PM CDT PM CDT Ayanna Whitley MD LAB_1 Performing Organization Address [facility]/ZIP Code Phon e Number [facility] [address] [place], [place] [phone] [address] CRP - C Reactive Protein (12/10/2019 2:37 PM CDT) athologist Signature C-Reactive <0.5 0.0 - 0.7 12/10/2019 [facility] Protein mg/dL 3:03 PM CDT [address] LABORATORY Specimen Anatomical Collection Method / Collection Time Recei pancho Time (Source) Location / Volume Laterality Blood Venipuncture / 12/10/2019 2:37 12/10/2019 2:37 Unknown PM CDT PM CDT Ayanna Whitley MD LAB_1 Performing Organization Address City/State/ZIP Code Phon e Number [facility] [address] [place], [place] [address] [address] documented in this encounter Visit Diagnoses Diagnosis Psoriatic arthritis (HRC) - Primary Psoriatic arthropathy High risk medication use Encounter for long-term (current) use of other medications Planned documented in this encounter Care Teams Corporate Claims Examiner Relationship Specialty Start Date End Date Huyen Mandujano MD PCP - General Obstetrics Gynecology 10/09/191999 [place] [address] documented as of this encounter
--- OUTSIDE RECORDS SUMMARY | 2022-06-11 08:40 | XMS_ITS | Encounter Summary ---
:1995 Author [facility] Address [address] [place] [address] Care Team Providers Name Role Phone Huyen Mandujano MD Primary Care Provider Reason for Visit Reason Comments Medication Questions Encounter Details Date Type Department Care Team Description 12/22/2019 Telephone [facility] [address] on Questions Rheumatology MD Ayanna [address] [place] [address] [place] [address] [phone] (Wo rk) Social History Tobacco Use Types Packs/Day Years Used Date Smoking Tobacco: Never Assessed Sex Assigned at Date Recorded Not on file documented as of this encounter Nursing Notes Lien Ocasio RN - 12/22/2019 2:01 PM CDT Patient given information and verbalized understanding. Ayanna Whitley MD - 12/22/2019 1:55 PM CDT If she thinks that her psoriasis and psoriatic arthritis are still tolerable with only as needed ibuprofen or naproxen (for joint pain), she can delay Cimzia until she is . The ibuprofen or naproxen shold be stopped when she is . Odette Li - 12/22/2019 1:45 PM CDT Pt calling, she wonders if she can delay starting Cimzia because she stated that her OBGYN doctor doesn't feel comfortable with her starting it while she is currently going through fertility treatment with clomid. She would like to start it once she becomes . Please advise. Pt wonders if she can be treated with prednisone for her current aches and pains from the las visit on 12/10/19. Pharmacy verified. documented in this encounter Plan of Treatment Not on filedocumented as of this encounter Visit Diagnoses Not on filedocumented in this encounter Care Teams Dna Analyst Relationship Specialty Start Date End Date Huyen Mandujano MD PCP - General Obstetrics Gynecology 10/09/191999 [place] [address] documented as of this encounter
[2022-06-11 08:52] LABS: Glucose Fasting Check 83 mg/dl (60-115)
[2022-06-11 11:39] LABS: Glucose Fasting 88 mg/dl (70-95)
[2022-06-11 11:39] LABS: Glucose 2 Hour 94 mg/dl (70-95)
== END 2022-06-11 08:38 | disposition home or self-care (01) ==
LOC: NFLDREF 08:38
PROVIDERS: Visit Provider Obstetrics & Gynecology
DX: O24.419 Gestational diabetes mellitus in pregnancy, unspecified control (principal)
CPT/HCPCS: 82947; 82950

== ENCOUNTER 2022-09-05 15:00 | Outpatient (RCR) | payer BC, SELFPAY | END 2022-11-29 11:06 | disposition home or self-care (01) | PROVIDERS: Visit Provider Obstetrics & Gynecology | DX: O80 Encounter for full-term uncomplicated delivery (principal); N81.89 Other female genital prolapse; R10.2 Pelvic and perineal pain; R10.30 Lower abdominal pain, unspecified; R27.8 Other lack of coordination; Z51.89 Encounter for other specified aftercare | CPT/HCPCS: 97110; 97112; 97140; 97162; 97535 ==

== ENCOUNTER 2022-09-21 15:57 | Outpatient (CLI) | payer BC, SELFPAY ==
--- NOTE | 2022-09-21 16:00 | CRLHL7_ITS ---
For Patients: As a result of the Century Cures Act, medical imaging exams and procedure reports are released immediately into your electronic medical record. You may view this report before your referring provider. If you have questions, please contact your health care provider. INDICATION: Right upper quadrant pain TECHNIQUE: Ultrasound abdomen limited. Sonographic images of the right upper quadrant were obtained using greenwood-scale and color Doppler images. COMPARISON: None FINDINGS: Liver: Normal in size and echotexture. No masses. No intrahepatic biliary dilatation. Gallbladder: Cholelithiasis. Normal wall thickness. No pericholecystic fluid. Common bile duct: 3 mm. Pancreas: Normal. Right kidney: 9.8 cm. Normal echotexture and cortex. No masses, stones, or hydronephrosis. Vasculature: Proximal abdominal aorta is normal. IMPRESSION: Cholelithiasis in an otherwise normal-appearing gallbladder. Normal common bile duct. Dictated by Igor Hickman MD @ 09/21/2022 5:28:41 PM (Electronically Signed)
== END 2022-09-21 15:58 | disposition home or self-care (01) ==
LOC: US 15:58
PROVIDERS: Visit Provider Family Medicine
DX: R10.11 Right upper quadrant pain (principal); K80.20 Calculus of gallbladder without cholecystitis without obstruction
CPT/HCPCS: 76705

== ENCOUNTER 2022-10-29 14:21 | Outpatient (CLI) | payer BC, SELFPAY ==
[2022-10-29 14:31] LABS: Hemoglobin* 14.7 gm/dL (12.0-16.0); Mean Corpuscular HGB Conc 33 gm/dL (32-36); Mean Corpuscular Hemoglobin 29 pg (26-34); Mean Corpuscular Volume 87 fL (80-100); Platelet Count* 199 K/uL (140-440); Red Blood Count 5.06 m/uL (4.00-5.20); White Blood Count* 6.87 K/uL (4.50-11.00)
[2022-10-29 14:32] LABS: Slide Review Reflex No
[2022-10-29 22:00] LABS: Chloride* 106 mmol/L (96-114); Sodium* 139 mmol/L (135-149)
[2022-10-29 22:02] LABS: Creatinine* 0.7 mg/dL (0.5-1.5); Estimated Glomerular Filt Rate 122 ml/min
[2022-10-29 22:03] LABS: Blood Urea Nitrogen* 20 mg/dL (5-24); Calcium* 9.1 mg/dL (8.4-10.6); Carbon Dioxide* 26 mmol/L (20-32); Glucose* 85 mg/dL (60-115)
== END 2022-10-29 14:22 | disposition home or self-care (01) ==
LOC: FRMREF 14:22
PROVIDERS: Visit Provider Family Medicine
DX: Z01.818 Encounter for other preprocedural examination (principal); K80.50 Calculus of bile duct without cholangitis or cholecystitis without obstruction; M06.9 Rheumatoid arthritis, unspecified
CPT/HCPCS: 80048; 85027

== ENCOUNTER 2022-11-05 08:24 | Day surgery (SDC) | payer BC, SELFPAY ==
[2022-11-05] VITALS (13 sets, daily range): BP systolic 74–110; BP diastolic 44–64; PULSE 46–59; RESP 11–16; TEMP 36.1–36.4; O2SAT 89–98; BMI 24.1
[2022-11-05] MEDS: LACTATED RINGERS 1000 ML 1,000 ML 100 ML IV ×2 (08:20→10:37)
[2022-11-05] MEDS: SODIUM CHLORIDE 0.9 % (FLUSH) 10 ML SYRINGE IVF (08:59)
[2022-11-05 09:39] LABS: HCG Qualitative* Negative (Negative)
--- NOTE | 2022-11-05 09:57 | W.ANESCHARGE ---
Anesthesia Charges Start Date/Time Anesthesia Start Date: 11/05/22 Anesthesia Start Time: 10:10 Stop Date/Time Anesthesia Stop Date: 11/05/22 Anesthesia Stop Time: 11:42
[2022-11-05] MEDS: CEFAZOLIN 2 GM INJ IVP (10:15)
[2022-11-05] MEDS: BUPIVACAINE 0.25% 30 ML INJECTION (10:27)
--- NOTE | 2022-11-05 11:27 | P.GSOP_ITS ---
Operative Note Date of procedure: 11/05/22 Pre-op diagnosis: 1. Biliary colic. Post-op diagnosis: 1. Biliary colic. 2. Mild acute cholecystitis. Type of Procedure: 1. Laparoscopic cholecystectomy. Indications: 27-year-old female on Humira was seen in clinic for evaluation of a recurrent episodes of epigastric and right upper quadrant abdominal pain. Patient is 5 months . Patient had a severe episode of abdominal pain in July 2022. The pain was described as sharp and radiating to her back. The pain spontaneously resolved and patient initially thought that was related to COVID, which she subsequently developed. However, 1 month later she developed similar episodes radiating to her back. This episode lasted several hours and spontaneously resolved. Since then, she has been noticing dull painful episodes in the right upper quadrant after eating fatty food. Patient minimized her fatty food intake to control her symptoms. Patient's gallbladder ultrasound showed cholelithiasis with no gallbladder wall thickening. There was no evidence of pericholecystic fluid and her common bile duct was normal. On clinical exam patient had no tenderness to palpation in epigastrium and negative Dorsey sign. Given patient's clinical history and her presentation in the period, biliary colic was suspected, and laparoscopic cholecystectomy was recommended. The procedure was discussed in detail. The risks associated procedure including infection, bleeding, injury to intra-abdominal organs, and injury to the common bile duct were all discussed with the patient, and she agreed to proceed. Procedure Description: After discussing the risks and benefits of the procedure, the patient signed informed consent.? The operative site was marked and the patient was brought to the operating room and placed on the operating table in supine position.? Care was taken to pad the patient's pressure points.?? The patient was then intubated by anesthesia.?? The operative site was then prepped and draped in the usual sterile fashion.? A time-out was then performed. A 5-mm laparoscopy port was placed in the left upper quadrant guided by a 5-mm laparoscope placed into a translucent trochar.~ Passage through the layers of the abdominal wall was visualized with the laparoscope.~ A pneumoperitoneum was established. A 0-degree 5-mm laparoscope was advanced into the abdomen. The abdomen was briefly surveyed, and no adhesions were noted. A 10-mm port were placed infraumbilically and two more 5 mm ports were placed on the right under direct visualization by laparoscope. The camera was then changed to 10 mm 30- degree scope and placed into the abdomen through the 10 mm port. The left upper quadrant port entrance was examined and no injury to intra-abdominal organs was identified. The gallbladder was identified, the fundus grasped and retracted cephalad. The duodenum and pancreas were clearly identified. The infundibulum was grasped and retracted laterally, exposing the peritoneum overlying the triangle of Calot. This was then divided and exposed in a blunt fashion and with hook cautery. Common bile duct was identified and care was taken not to injure it. The cystic artery had several branches overlying the cystic duct. This network of blood vessels was carefully dissected bluntly and with hook cautery. Only when the course of the cystic artery was very clearly going into the gallbladder, it was controlled with 5 mm clips on the patient's side and a single clip on the s pecimen side and divided with cautery. The cystic duct was clearly identified and bluntly dissected circumferentially. The cystic duct was then triply ligated with surgical clips on the patient's s josé and singly clipped on the gallbladder side and divided. The gallbladder was dissected from the liver bed in retrograde fashion using hookcautery. The gallbladder was placed into an Endo-Catch bag and removed through the infraumbilical incision. Surgical site was examined for bleeding. Minimal wheezing was noted from a small vein in the gallbladder fossa. This was controlled with hook cautery. The fascia of the infraumbilical incision was then closed with a figure of 8 0-0 vicryl under direct visualization. This closure was examined intra-abdominally, and no intra-abdominal organs were incarcerated in the closure. Pneumoperitoneum was completely reduced after viewing removal of the trocars under direct vision. The skin was then closed with 4-0 monocryl and steristrips were applied. Instrument, sponge, and needle counts were correct at closure and at the conclusion of the case. The patient was transferred to PACU in stable condition. Findings: Mild inflammation in the wall of the gallbladder. Incidentally found right inguinal hernia. Anesthesia: GETA Surgeon: Tracy Hutchison MD Estimated blood loss (mL): 5 Specimen: Gallbladder Condition: stable Disposition: PACU
--- NOTE | 2022-11-05 11:42 | W.ANESCHARGE ---
Anesthesia Charges Start Date/Time Anesthesia Start Date: 11/05/22 Anesthesia Start Time: 10:10 Stop Date/Time Anesthesia Stop Date: 11/05/22 Anesthesia Stop Time: 11:42
[2022-11-05] MEDS: ePHEDrine sulfate 5 MG/ML inj IVP ×2 (11:50→11:55)
== END 2022-11-05 13:23 | disposition home or self-care (01) ==
PROVIDERS: Nurse Anesthetist, Certified Registered; PCP Family Medicine; Visit Provider Surgery
PROC: 0FT44ZZ Resection of Gallbladder, Percutaneous Endoscopic Approach (ICD-10-PCS; CPT 47562; principal; 2022-11-05 09:45)
DX: K81.0 Acute cholecystitis (principal)
CPT/HCPCS: 47562; 00790; 84703; 88304; J0171; J0330; J0690; J1100; J1200; J1885; J2405; J2704; J2710; J3010; J3490; J7120

== ENCOUNTER 2023-05-09 19:24 | Outpatient (CLI) | payer BC, SELFPAY ==
--- OUTSIDE RECORDS SUMMARY | 2023-05-09 19:26 | XMS_ITS | Continuity of Care Document ---
Author Name Unknown Organization [facility] Address [address] [place] [address] Phone Care Team Providers Care Commercial Lines Manager Name Role Phone Heather Carlos MD Unavailable Unavailable Allergies, Adverse Reactions, Alerts Substance Reaction Status Criticality No Known Allergies Active No Inform ation Medications Medication Instructions Dosage Effective Dates (start - stop) Status Comments HUMIRA(CF) PEN 40 MG/0.4 ML INJECT 0.4 ML UNDER THE SKIN EVERY 2 WEEKS IN THE ABDOMEN OR THIGH (ROTATE SITES) - Active sertraline 100 mg tablet take 1 tablet by oral route every day 100 MG - Active VITAMINS (unknown strength) 1 daily Not Available - Active Problems Condition Type Effective Dates (start - stop) Clini neda Status Comments No Known Problems Procedures Procedure Date Office/Outpatient Visit, Est Routine Venipuncture Rbc Sed Rate, Automated Assay Of Serum Albumin Assay Of Creatinine Transferase (Ast) (Sgot) Alanine Amino (Alt) (Sgpt) CReactive Protein Complete Cbc WAuto Diff Wbc Office/Outpatient Visit, Est Routine Venipuncture Rbc Sed Rate, Nonautomated Assay Of Serum Albumin Assay Of Creatinine Transferase (Ast) (Sgot) Alanine Amino (Alt) (Sgpt) CReactive Protein Complete Cbc WAuto Diff Wbc Office/Outpatient Visit, Est Routine Venipuncture Rbc Sed Rate, Nonautomated Assay Of Serum Albumin Assay Of Creatinine Transferase (Ast) (Sgot) Alanine Amino (Alt) (Sgpt) CReactive Protein Complete Cbc WAuto Diff Wbc Office/Outpatient Visit, Est Routine Venipuncture Rbc Sed Rate, Nonautomated Assay Of Serum Albumin Assay Of Creatinine Transferase (Ast) (Sgot) Alanine Amino (Alt) (Sgpt) CReactive Protein Complete Cbc WAuto Diff Wbc Office/Outpatient Visit, [place] Routine Venipuncture Specimen Handling Rbc Sed Rate, Nonautomated Assay Of Creatinine Assay Alkaline Phosphatase Transferase (Ast) (Sgot) Alanine Amino (Alt) (Sgpt) Assay Of Urea Nitrogen Assay Of Blood/Uric Acid CReactive Protein Antinuclear Antibodies CCP Antibody Tb Test, Cell Immun Measure Rheumatoid Factor, IGM Rheumatoid Factor, IGG, IGA Complete Cbc WAuto Diff Wbc Dna Antibody, Single Strand Dna Antibody, [place] Nuclear Antigen Antibodies Results Test Name Date and Time Measure Units Reference Range Abnormal Flag Status Comments Panel Description: CBC 5 part diff Final Neutrophils# 10:07:00 4.16 K/uL 2.00-7.50 Final Neutrophil % 10:07:00 45.70 % 0.00-99.00 Final Eosinophil # 10:07:00 0.11 K/uL 0.00-0.50 Final Eosinophil % 10:07:00 1.20 % 0.00-7.00 Final Basophil # 10:07:00 0.10 K/uL 0.00-0.20 Final Basophil % 10:07:00 1.10 % 0.00-99.00 Final WBC 10:07:00 9.1 K/uL 4.0-10.0 Final RBC 10:07:00 4.64 M/uL 3.80-5.80 Final Hemoglobin 10:07:00 13.8 g/dL 11.5-16.0 Final Hematocrit 10:07:00 41.0 % 37.0-47.0 Final MCV 10:07:00 88 fL 80-100 Final MCH 10:07:00 29.7 pg 27.0-32.0 Final MCHC 10:07:00 33.6 g/dL 32.0-36.0 Final RDW 10:07:00 12.4 % 11.0-16.0 Final Platelet Count 10:07:00 196 K/uL 150-500 Final MPV 10:07:00 8.5 fL 6.0-11.0 Final Lymphocyte% 10:07:00 44.20 % 25.00-50.00 Final Lymphocyte # 10:07:00 4.0 K/uL 1.0-4.0 Final Monocytes # 10:07:00 0.71 K/uL 0.20-1.00 Final Monocytes % 10:07:00 7.80 % 2.00-10.00 Final Panel Description: ESR Final ESR 10:14:00 7 mm/hr 0-20 Final Panel Description: DMARD Final AST 11:47:00 20 U/L 5-34 Final ALT 11:47:00 17 IU/L 5-35 Final Creatinine 11:47:00 0.640 mg/dL 0.500-1.300 Final ALB 11:47:00 4.2 g/dL 3.5-5.3 Final GFR 11:47:00 118.3 mL/min/1. 73 m2 Final Panel Description: CRP Final CRP 11:47:00 0.06 MG/DL 0.00-0.60 Final LOW=Actual Result is BELOW Linearity of Analyzer Advance Directives Directive Yes / No Effective Date File Name No Information Encounters Encounter Description Practice Location Reason(s) For Visit Diagnoses Date Provider Providers Copied on Encounter Office/Outpa tient Visit, [facility] , [address], [place], [address], [place] tel:[phone] [facility] , Follow Up of Psoriatic arthritis (chief complaint) Other psoriatic arthropathyO ther senior living (current) drug therapy 3 Terrance Romero. [facility] [address], [place], [address], [place]. tel:[phone] Referring Provider: Heather Medellin, [facility] [address], [place], [address]. tel:[phone] [facility] , [address], [place], [address], [place] tel:[phone] [facility] , No Information 3 Terrance Romero. [facility] [address], [place], [address], [place]. tel:[phone] Office/Outpa tient Visit, [facility] , [address], [place], [address], [place] tel:[phone] [facility] , Follow Up of Psoriatic arthritis (chief complaint) Other psoriatic arthropathyO ther senior living (current) drug therapy 3 Terrance Romero. [facility] [address], [place], [address], [place]. tel:[phone] Referring Provider: Heather Medellin, [facility] [address], [place], [address]. tel:[phone] Office/Outpa tient Visit, [facility] , [address], [place], [address], [place] tel:[phone] [facility] , Follow Up of Rheumatoid arthritis (chief complaint) Other psoriatic arthropathyO ther middle or intermediate school principal (current) drug therapy 1 Terrance Romero. [facility] [address], [place], [address], [place]. tel:[phone] Referring Provider: Heather Medellin, [facility] [address], [place], [address]. tel:[phone] Office/Outpa tient Visit, Est [facility] , [address], [place], [address], [place] tel:[phone] [facility] , Follow Up of Rheumatoid arthritis (chief complaint) Other psoriatic arthropathyO ther middle or intermediate school principal (current) drug therapy 1 Terrance Romero. [facility] [address], [place], [address], [place]. tel:[phone] Referring Provider: Heather Medellin, [facility] [address], [place], [address]. tel:[phone] Office/Outpa tient Visit, [facility] , [address], [place], [address], [place] tel:[phone] [facility] , Rheumatoid arthritis (chief complaint) Other psoriatic arthropathyO ther senior living (current) drug therapy 1 Terrance Romero. [facility] [address], [place], [address], [place]. tel:[phone] Referring Provider: Heather Medellin, [facility] [address], [place], [address]. tel:[phone] [facility] , [address], [place], [address], [place] tel:[phone] [facility] , No Information 1 Terrance Romero. [facility] [address], [place], [address], [place]. tel:[phone] Referring Provider: Heather Medellin, [facility] [address], [place], [address]. tel:[phone] Family History Family Member Type Diagnosis Age At Onset Mother Problem rheumatoid arthritis Maternal grandmother Problem rheumatoid arthritis Immunizations Vaccine Date Status Comments COVID-19 Pfizer administered Note: 2020 ; Source: Other Provider Payers Payer name Insurance type Covered alliance party ID Authoriza tion(s) [facility] [id number] Social History Type Description Quantity Date Captured Comments Alcohol Use Details No Caffeine Use Details coffee 1 cup per day Tobacco Use Status Current non-smoker Smoking Status Never smoker Conor is . She works as a nurse at the center. Non-Smoking Tobacco Use Details : No Details Available : No Details Available Sex Female Vital Signs Date / Time: Height Weight BMI Pulse Rate Blood Pressure Temperature Respiratory Rate Body Surface Area Head Circumference Head Circ. Percentile Wt./Vini. Percentile BMI percentile Pulse Ox Inhaled Ox 8:00 AM 62.50 in 64.319 kg (141.80 lbs) 25.5 2 kg/m eter (2) 112/64 mm[Hg] 97.60 F Chief Complaint And Reason For Visit From encounter dated '03/18/2023 08:00'. Follow Up of Psoriatic arthritis (chief complaint) Reason For Referral Reason For Referral No Information Plan Of Treatment Date Type Action Status Appointment Maris Holt BOOKED History Of Present Illness Encounter Date Complaint History Of Prese nt Illness Follow Up of Psoriatic arthritis Follow Up of Psoriatic arthritis Follow Up of Rheumatoid arthriti s Follow Up of Rheumatoid arthriti s Rheumatoid arthritis Functional Status Date Functional Assessmen t Pain Score 2/10 Instructions Date Instruction Additional Infor matjuan diego No Information Assessments Type Assessment Date assessment Other psoriatic arthropathy assessment Other middle or intermediate school principal (current) drug t herapy Patient Care Teams Name Effective Dates (start - stop) Status Members No Information
[2023-05-09] MEDS: DICLOXACILLIN 250 MG CAPSULE 1000 MG PO (19:35)
== END 2023-05-09 19:37 | disposition home or self-care (01) ==
LOC: OB OUT 19:24 → OB 05-13 13:24
PROVIDERS: PCP Family Medicine; Visit Provider Advanced Practice Midwife
DX: N63.20 Unspecified lump in the left breast, unspecified quadrant (principal)
CPT/HCPCS: 99211; 99213

== ENCOUNTER 2023-05-14 08:19 | Outpatient (CLI) | payer BC, SELFPAY ==
--- NOTE | 2023-05-14 08:15 | CRLHL7_ITS ---
For Patients: As a result of the Cures Act, medical imaging exams and procedure reports are released immediately into your electronic medical record. You may view this report before your referring provider. If you have questions, please contact your health care provider. LEFT BREAST ULTRASOUND, 05/14/2023 INDICATION: 28-year-old female. Painful palpable lump inferior lateral LEFT breast for approximately 1 week. The patient has been on antibiotics with improvement. The patient recently. Breast-feeding. The patient delivered a baby approximately 1 year ago. TECHNIQUE: Directed LEFT breast ultrasound with this radiologist present. FINDINGS: The LEFT breast is carefully scanned between the 3 and 5 o`clock position. Images obtained at the 4 o`clock position 3 cm from the nipple. There is dense breast tissue. No underlying mass. No abscess. No fluid collection. No areas of shadowing or distortion. These findings were discussed in detail with the patient. IMPRESSION: Negative directed LEFT breast ultrasound. BI-RADS Category 1: Negative Dictated by: Ulisses Villalobos MD @05/14/2023 9:38:42 AM jj/Dictated by: Ulisses Villalobos MD @ 05/14/2023 9:38:00 AM (Electronically Signed)
--- OUTSIDE RECORDS SUMMARY | 2023-05-14 08:21 | XMS_ITS | Continuity of Care Document ---
Author Name Unknown Organization [facility] Address [address] [place] [address] Phone Care Team Providers Care Office Clerk Name Role Phone Heather Carlos MD Unavailable [...] Complete Cbc WAuto Diff Wbc Office/Outpatient Visit, [facility] Routine Venipuncture Specimen Handling Rbc Sed Rate, Nonautomated Assay Of Creatinine Assay Alkaline Phosphatase Transferase (Ast) (Sgot) Alanine Amino (Alt) (Sgpt) Assay Of Urea Nitrogen Assay Of Blood/Uric Acid CReactive Protein Antinuclear Antibodies CCP Antibody Tb Test, Cell Immun Measure Rheumatoid Factor, IGM Rheumatoid Factor, IGG, IGA Complete Cbc WAuto Diff Wbc Dna Antibody, Single Strand Dna Antibody, [place] Nuclear Antigen Antibodies Results Test Name Date [...] [address], [place], [address], [place] tel:[phone] [facility] , Follow Up of Psoriatic arthritis (chief complaint) Other psoriatic arthropathyO ther senior care (current) drug therapy 3 Terrance Romero. [facility] [address], [place], [address], [place]. tel:[phone] Referring Provider: Heather Medellin, [facility] [address], [place], [address]. tel:[phone] [facility] , [address], [place], [address], [place] tel:[phone] [facility] , No Information 3 Terrance Romero. [facility] [address], [place], [address], [place]. tel:[phone] Office/Outpa tient Visit, Est [facility] , [address], [place], [address], [place] tel:[phone] [facility] , Follow Up of Psoriatic arthritis (chief complaint) Other psoriatic arthropathyO ther senior care (current) drug therapy 3 Terrance Romero. [facility] [address], [place], [address], [place]. tel:[phone] Referring Provider: Heather Medellin, [facility] [address], [place], [address]. tel:[phone] Office/Outpa tient Visit, Est [facility] , [address], [place], [address], [place] tel:[phone] [facility] , Follow Up of Rheumatoid arthritis (chief complaint) Other psoriatic arthropathyO ther termite exterminator helper (current) drug therapy 1 Terrance Romero. [facility] [address], [place], [address], [place]. tel:[phone] Referring Provider: Heather Medellin, [facility] [address], [place], [address]. tel:[phone] Office/Outpa tient Visit, Est [facility] , [address], [place], [address], [place] tel:[phone] [facility] , Follow Up of Rheumatoid arthritis (chief complaint) Other psoriatic arthropathyO ther termite exterminator helper (current) drug therapy 1 Terrance Romero. [facility] [address], [place], [address], [place]. tel:[phone] Referring Provider: Heather Medellin, [facility] [address], [place], [address]. tel:[phone] Office/Outpa tient Visit, [facility] , [address], [place], [address], [place] tel:[phone] [facility] , Rheumatoid arthritis (chief complaint) Other psoriatic arthropathyO ther senior care (current) drug therapy 1 Terrance Romero. [facility] [address], [place], [address], [place]. tel:[phone] Referring Provider: Heather Medellin, [facility] [address], [place], [address]. tel:[phone] [facility] , [address], [place], [address], [place] tel:[phone] [facility] , No Information 1 Terrance Romero. [facility] [address], [place], [address], [place]. tel:[phone] Referring Provider: Heather Medellin, [facility] [address], [place], [address]. 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
== END 2023-05-14 08:20 | disposition home or self-care (01) ==
LOC: US 08:19
PROVIDERS: PCP Family Medicine; Visit Provider Advanced Practice Midwife
DX: N63.20 Unspecified lump in the left breast, unspecified quadrant (principal)
CPT/HCPCS: 76642

== ENCOUNTER 2023-12-24 09:35 | Outpatient (CLI) | payer BC, SELFPAY ==
--- OUTSIDE RECORDS SUMMARY | 2023-12-25 05:15 | XMS_ITS | Continuity of Care Document ---
Author Organization [facility] Address [address] [place] [address] Phone Care Team Providers Care Manager Quality Systems Name Role Phone Heather Carlos MD Unavailable [...] (unknown strength) 1 daily Not Available - No Longer Active Problems Condition Type Effective Dates (start [...] Complete Cbc WAuto Diff Wbc Office/Outpatient Visit, New Routine Venipuncture Specimen Handling Rbc Sed Rate, Nonautomated Assay Of Creatinine Assay Alkaline Phosphatase Transferase (Ast) (Sgot) Alanine Amino (Alt) (Sgpt) Assay Of Urea Nitrogen Assay Of Blood/Uric Acid CReactive Protein Feb-17-2021 Antinuclear Antibodies CCP Antibody Tb Test, Cell Immun Measure Rheumatoid Factor, IGM Rheumatoid Factor, IGG, IGA Complete Cbc WAuto Diff Wbc Dna Antibody, Single Strand Dna Antibody, [place] Nuclear Antigen Antibodies Results Test Name Date and Time Measure Units Reference Range Abnormal Flag Status Comments Panel Description: CBC 5 part diff Final Neutrophils# 11:16:00 3.72 K/uL 2.00-7.50 Final Neutrophil % 11:16:00 49.50 % 0.00-99.00 Final Eosinophil # 11:16:00 0.13 K/uL 0.00-0.50 Final Eosinophil % 11:16:00 1.70 % 0.00-7.00 Final Basophil # 11:16:00 0.06 K/uL 0.00-0.20 Final Basophil % 11:16:00 0.80 % 0.00-99.00 Final WBC 11:16:00 7.5 K/uL 4.0-10.0 Final RBC 11:16:00 4.94 M/uL 3.80-5.80 Final Hemoglobin 11:16:00 14.7 g/dL 11.5-16.0 Final Hematocrit 11:16:00 44.8 % 37.0-47.0 Final MCV 11:16:00 91 fL 80-100 Final MCH 11:16:00 29.7 pg 27.0-32.0 Final MCHC 11:16:00 32.8 g/dL 32.0-36.0 Final RDW 11:16:00 11.8 % 11.0-16.0 Final Platelet Count 11:16:00 193 K/uL 150-500 Final MPV 11:16:00 8.6 fL 6.0-11.0 Final Lymphocyte% 11:16:00 42.10 % 25.00-50.00 Final Lymphocyte # 11:16:00 3.2 K/uL 1.0-4.0 Final Monocytes # 11:16:00 0.44 K/uL 0.20-1.00 Final Monocytes % 11:16:00 5.90 % 2.00-10.00 Final Panel Description: ESR Final ESR 11:35:00 8 mm/hr 0-20 Final Panel Description: DMARD Final AST 14:07:00 14 U/L 5-34 Final ALT 14:07:00 11 IU/L 5-35 Final Creatinine 14:07:00 0.600 mg/dL 0.500-1.300 Final ALB 14:07:00 4.2 g/dL 3.5-5.3 Final GFR 14:07:00 127.5 mL/min/1. 73 m2 Final Panel Description: CRP Final CRP 14:07:00 0.04 MG/DL 0.00-0.60 Final LOW=Actual Result is BELOW Linearity of Analyzer Advance Directives Directive Yes / No Effective Date File Name No Information Encounters Encounter Description Practice Location Reason(s) For Visit Diagnoses Date Provider Providers Copied on Encounter Office/Outpa tient Visit, [facility] , [address], [place], [address], [place] tel:[phone] [facility] , Follow Up of Psoriatic arthritis (chief complaint) Other psoriatic arthropathyO ther nursing home (current) drug therapy 4 Terrance Romero. [facility] [address], [place], [address], [place]. tel:[phone] Referring Provider: Heather Medellin, [facility] [address], [place], [address]. tel:[phone] [facility] , [address], [place], [address], [place] tel:[phone] [facility] No Information 4 Terrance Romero. [facility] [address], [place], [address], [place]. tel:[phone] Office/Outpa tient Visit, [facility] , [address], [place], [address], [place] tel:[phone] [facility] , Follow Up of Psoriatic arthritis (chief complaint) Other psoriatic arthropathyO ther remote computer terminal operator (current) drug therapy 3 Terrance Romero. [facility] [address], [place], [address], [place]. tel:[phone] Referring Provider: Heather Medellin, [facility] [address], [place], [address]. tel:[phone] Office/Outpa tient Visit, [facility] , [address], [place], [address], [place] tel:[phone] [facility] , Follow Up of Psoriatic arthritis (chief complaint) Other psoriatic arthropathyO ther remote computer terminal operator (current) drug therapy 3 Terrance Romero. [facility] [address], [place], [address], [place]. tel:[phone] Referring Provider: Heather Medellin, [facility] [address], [place], [address]. tel:[phone] Office/Outpa tient Visit, [facility] , [address], [place], [address], [place] tel:[phone] [facility] , Follow Up of Rheumatoid arthritis (chief complaint) Other psoriatic arthropathyO ther remote computer terminal operator (current) drug therapy 1 Terrance Romero. [facility] [address], [place], [address], [place]. tel:[phone] Referring Provider: Heather Medellin, [facility] [address], [place], [address]. tel:[phone] Office/Outpa tient Visit, Est [facility] , [address], [place], [address], [place] tel:[phone] [facility] , Follow Up of Rheumatoid arthritis (chief complaint) Other psoriatic arthropathyO ther nursing home (current) drug therapy 1 Terrance Romero. [facility] [address], [place], [address], [place]. tel:[phone] Referring Provider: Heather Medellin, [facility] [address], [place], [address]. tel:[phone] Office/Outpa tient Visit, New [facility] , [address], [place], [address], [place] tel:[phone] [facility] , Rheumatoid arthritis (chief complaint) Other psoriatic arthropathyO ther nursing home (current) drug therapy 1 Terrance Romero. [facility] [address], [place], [address], [place]. tel:[phone] Referring Provider: Heather Medellin, [facility] [address], [place], [address]. tel:[phone] [facility] , [address], [place], [address], [place] tel:[phone] [facility] , No Information Terrance Romero. [facility] [address], [place], [address], [place]. tel:[phone] Referring Provider: Heather Medellin, [facility] [address], [place], [address]. tel:[phone] Family History Family Member Type Diagnosis Age At Onset Mother Problem rheumatoid arthritis Maternal grandmother Problem rheumatoid arthritis Immunizations Vaccine Date Status Comments COVID-19 Pfizer administered Note: 2020 ; Source: Other Provider Payers Payer name Insurance type Covered democrat ID Jose Alfredo oviedo(s) [facility] [id number] Social History Type Description Quantity Date Captured Comments Alcohol Use Details Unknown Caffeine Use Details Unknown Tobacco Use Status Current non-smoker Smoking Status [...] Percentile BMI percentile Pulse Ox Inhaled Ox 10:06 AM 62.50 in 70.760 kg (156.00 lbs) 28.0 8 kg/m eter (2) 112/74 mm[Hg] 98.20 F Chief Complaint And Reason For Visit From encounter dated '12/12/2023 10:00'. Follow Up of Psoriatic arthritis (chief complaint) Reason For Referral Reason For Referral No Information History Of Present Illness Encounter Date Complaint History Of Prese nt Illness Follow Up of Psoriatic arthritis Follow Up of Psoriatic arthritis Follow Up of Psoriatic arthritis Follow Up of Rheumatoid arthriti s Follow Up of Rheumatoid arthriti s Rheumatoid arthritis Functional Status Date Functional Assessmen t Pain Score 3/10 Instructions Date Instruction Additional Infor ryan No Information Assessments Type Assessment Date assessment Other psoriatic arthropathy assessment Other nursing home (current) drug t herapy Patient Care Teams Name Effective Dates (start - stop) Status Members No Information
--- OUTSIDE RECORDS SUMMARY | 2023-12-25 05:15 | XMS_ITS | Clinical Summary ---
Author Organization [facility] Address [address], [place] [address] Care Team Providers Care Pot Puller Name Role Phone Huyen Mandujano MD Primary Care Provider Source Comments You are receiving this document as you are listed as the primary care provider,follow-up provider, or the patient has been referred to you for consultation.This is in compliance with the Medicare andMedicaid EHR Incentive Program,which states Providers who transition their patient to another setting of careor provider of care or refers their patient to another provider of care shouldprovide summary care record for each transition of care or referral. [facility] Allerg[facility] Active Allergy Reactions Criticality Noted Date Comments Hydroxychloroquine 12/10/2019 Stomach upset. 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 4 Each 11 12/15/2019 Active Active Problems Problem Noted Date Diagnosed Date Psoriatic arthritis 12/10/2019 High risk medication use 12/10/2019 Episode of recurrent major depressive disorder 0 12/10/2019 Anxiety disorder 12/10/2019 Irritable bowel syndrome without diarrhea 2019 Planned 12/10/2019 Immunizations Name Administration Dates Next Due PCV13 (Prevnar) 12/10/2019 Social History Tobacco Use Types Packs/Day Years Used Date Smoking Tobacco: Never Assessed Sex and Gender Information Value Date Recorded Sex Assigned at Not on file Gender Identity Not on file Sexual Orientation Not on file Last Filed Vital Signs [...] Done Comments Cervical Cancer Screening Due 1996 HIV Screening (Preventive Services) 2012 Adult Preventive Visit 02/25/2014 HepB (1) 02/25/2015 COVID-19 Vaccine (3 - 2022-2 4 season) 2023 11/05/2020, 10/15/2020 Influenza (Season Ended) 2024 05/05/2020 DTaP/Tdap/Td (2 - Tdap) 08/08/2030 08/08/2020 Zoster/Shingles (1 of 2) 02/25/2046 Hep C Screening (Preventive Services) Completed 12/10/2019 Pneumococcal Aged Out 12/10/2019 No longer eligi ble based on patient's age to complete this topic HPV Vaccine Aged Out No longer eligi ble based on patient's age to complete this topic HepA Aged Out No longer eligi ble based on patient's age to complete this topic Hib Aged Out No longer eligi ble based on patient's age to complete this topic IPV (Polio) Aged Out No longer eligi ble based on patient's age to complete this topic MCV4 Aged Out No longer eligi ble based on patient's age to complete this topic Procedures Procedure Name Priority Date/Time Associated Diagnosis Comments HEPATITIS C ANTIBODY, WITH REFLEX Routine 12/10/2019 2:37 PM CDT Psoriatic arthritis (HRC) High risk medication use from Last 3 Months or Most Recently Relevant to Health Maintenance Results * [facility] - Hepatitis C Virus Khloe with Reflex In-House (12/10/2019 2:37 PM CDT) Hepatitis C Antibody Negative (Non Reactive) Negative (Non Reactive) 12/10/2019 5:59 PM CDT [facility] Comment:Antibodies to HCV no t detected. Does not exclude the possiblity of exposure to HCV. Blood Venipuncture / Unknown 12/10/2019 2:37 PM CDT 12/10/2019 2:37 PM CDT Ayanna Whitley MD LAB_1 [facility] [address] [place], [place] [address] [place] [address] from Last 3 Months or Most Recently Relevant to Health Maintenance Care Teams Pot Puller Relationship Specialty Start Date End Date Huyen Mandujano MD [address] [place] [address] PCP - General Obstetrics Gynecology 10/09/19
--- OUTSIDE RECORDS SUMMARY | 2023-12-25 05:15 | XMS_ITS | Clinical Summary ---
Author Organization [facility] Address [place], [place] [address] Care Team Providers Care Experience Design Director Name Role Phone Pcp, No Primary Care Provider Unavailabl e Gisell Graves MD Unavailable [phone] Thalia Kenney MD Unavailable [phone] Allergies No known active allergies Medications Medication Sig Dispensed Refills Start Date End Date Status sertraline (ZOLOFT) 100 mg tabletIndications:An xiety disorder, unspecified type Take 1 tablet by mouth once daily. 90 tablet 3 03/25/2017 Active Clobetasol Propionate 0.05 % shampooIndications:P soriasis Apply a thin layer onto dry, affected area of scalp once daily. Leave for 15 minutes before lathering and rinsing. 118 mL 4 08/13/2017 Active clobetasol cream 0.05% (TEMOVATE) 0.05 % creamIndications:Pso riasis Apply topically to affected area(s) 2 times daily. 30 g 5 08/13/2017 Active folic acid 1 mg tabletIndications:Hi gh risk medication use Take 1 tablet by mouth once daily. 30 tablet 3 06/17/2018 Active methotrexate (RHEUMATREX) 2.5 mg tabletIndications:Ps oriatic arthritis (HC),High risk medication use Take 8 tablets by mouth once weekly. 32 tablet 10/06/2018 Active Hospital, Clinic, or Other Facility Administered Medication Ordered Dose Route Frequency Start Date End Date Status levonorgestrel 1 Device IUD intrauterine (5 years) (JENNIFER)Indications:IUD (intrauterine device) in place 1 Device IU Q 5 YEARS 08/13/2017 Active Active Problems Problem Noted Date Diagnosed Date Abnormal heart rate or rhythm affecting management of mother 03/22/2022 Maternal rheumatoid arthritis complicating pregn peter 03/22/2022 Diet controlled gestational diabetes mellitus (GDM) in third trimester 03/22/2022 IUD (intrauterine device) in place 08/13/2017 Overview: Kyleena placed 07/2017 Reactive inflammatory arthritis 03/25/2017 Anxiety disorder 02/27/2016 Irritable bowel syndrome (IBS) 10/11/2014 Atypical anxiety disorder 11/27/2013 Major depressive disorder, single episode, moder ate 10/03/2012 Myopia 04/07/2012 Other acne 01/11/2010 Immunizations Name Administration Dates Next Due DTP-HIB 06/04/1997,1996,1996 ,1996 DTaP 01/20/2001 Hepatitis A (Peds) 07/19/2014,11/20/2011 Hepatitis B (Peds) 1996,1996, 996 Human Papilloma Virus Vaccine 02/27/2007, 007,06/15/2006 Inactivated Polio Vaccine 01/20/2001 Influenza, IIV3 (Age >=3 years) 04/21/20 12,05/29/2007,06/15/2006,05/27/2003 ,07/17/2002,06/18/2002 Influenza, IIV4 04/22/2018,03/25/2017,07/19/2014 MMR 01/20/2001,06/04/1997 Meningococcal Vaccine (Menactra) 03/09/2008 Meningococcal Vaccine (Menveo) 03/23/2014 Oral Polio Vaccine 06/04/1997,1996, 996 Tdap 04/24/2018,03/09/2008 Tuberculin (PPD) 04/27/2018 Typhoid (injectable) 11/13/2016 Varicella Vaccine 03/09/2008,03/03/1998 Family History Medical History Relation Name Comments Arthritis Maternal Grandmother OA Arthritis Maternal Uncle RA Arthritis Mother RA Relation Name Status Comments Brother Alive Father Alive Maternal Grandmother Maternal Uncle Mother Alive Paternal Grandmother Alive Social History Tobacco Use Types Packs/Day Years Used Date Smoking Tobacco: Never Smokeless Tobacco: Never Tobacco Cessation:Counseling Given: Yes Alcohol Use Standard Drinks/Week Comments Yes 0 (1 standard drink = 0.6 oz pur e alcohol) occasionally Sex and Gender Information Value Date Recorded Sex Assigned at Not on file Gender Identity Not on file Sexual Orientation Not on file Obstetrics History Para Term AB IAB SAB Ectopic Multiple Livin g Live Births 0 0 0 0 0 0 0 0 0 0 Last Filed Vital Signs Vital Sign Reading Time Taken Comments Blood Pressure 112/70 06/17/2018 2:01 PM RESIDENTIAL BUILDING INSPECTOR Pulse 68 08/13/2017 10:27 AM RESIDENTIAL BUILDING INSPECTOR Temperature 36.6 ??C (97.8 ??F) 07/07/2017 1:12 AM CS T Respiratory Rate 16 08/13/2017 10:27 AM RESIDENTIAL BUILDING INSPECTOR Oxygen Saturation 100% 07/07/2017 1:12 AM RESIDENTIAL BUILDING INSPECTOR Inhaled Oxygen Concentration - - Weight 63 kg (139 lb) 06/17/2018 2:01 PM RESIDENTIAL BUILDING INSPECTOR Height 158.8 cm (5' 2.5) 06/17/2018 2:01 PM RESIDENTIAL BUILDING INSPECTOR Body Mass Index 25.02 06/17/2018 2:01 PM RESIDENTIAL BUILDING INSPECTOR Plan of Treatment Health Maintenance Due Date Last Done Comments HIV for age 15-65 02/25/2011 Hepatitis C screening for age 18-79 02/25/2014 Depression screening for age 12+ 08/13/2018 08/13/2017, 05/17/2016, 02/27/2016, Additional history exists BMI (ht and wt on same day) for age 18+ 06/17/2019 06/17/2018, 10/22/2017, 08/13/2017, Additional history exists Pap test for age 21-65 03/28/2023 03/28/2020, 2016 COVID-19 vaccine series ( season) 2023 11/28/2021, 11/05/2020, 10/15/2020 Influenza for age 9-49 03/29/2024 8, 03/25/2017, 07/19/2014, Additional history exists Tetanus booster 04/24/2028 04/24/2018, 03/09/2008 Tdap Completed 04/24/2018, 03/09/2008 Pneumococcal series for age 6-64 Aged Out No longer eligible based on patient's age to complete this topic Procedures Procedure Name Priority Date/Time Associated Diagnosis Comments CLOTH LAMINATING SUPERVISOR THIN PREP PAP SCREEN IMAGED Routine 03/28/2020 1:45 PM CDT from Last 3 Months or Most Recently Relevant to Health Maintenance Results * CLOTH LAMINATING SUPERVISOR THIN PREP PAP SCREEN IMAGED (03/28/2020 1:45 PM CDT) Case Report Gynecologic Cytology Report ? Case: [id number] ? Authorizing Provider: ??Cristina Pritchard ?Collected: ? 03/28/2020 1345 ? Mala, ? Ordering Location: ? [facility] ?Received: ?03/30/2020822 ? First Screen: ?Irmarmchristine, Jessica ? Specimen: ?CLOTH LAMINATING SUPERVISOR ThinPrep Vial Screening, Cervical/Vaginal ? 04/07/2020 1:39 PM CDT [facility] INTERPRETATION/ RESULT NEGATIVE FOR INTRAEPITHELIAL LESION OR MALIGNANCY (NIL) (none) 04/07/2020 1:39 PM CDT [facility] IMEN ADEQUACY Satisfactory for evaluation No endocervical component seen in a patient 04/07/2020 1:39 PM CDT [facility] HPV REQUEST HPV if ASCUS 04/07/2020 1:39 PM CDT [facility] Menstrual Status 04/07/2020 1:39 PM CDT [facility] Additional Information 04/07/2020 1:39 PM CDT [facility] Comment: Interpreted at [facility] [facility] - [address], [place] [address] Automated Review Successful 04/07/2020 1:39 PM CDT [facility] Comment:Specimen processed s uccessfully by automated data center architect device, ThinPrep Imaging System, [employer] Note The pap test is a screening technique, not a diagnostic procedure. It is used primarily to screen for squamous cancers and precursor lesions. Published studies have shown that it is subject to both false negative and false positive results. The pap test should not be used as the sole means to diagnose or exclude pre-malignant and malignant lesions. 04/07/2020 1:39 PM CDT [facility] Other (Cervical/Vagina l) 03/28/2020 1:45 PM CDT 03/30/2020 8:23 AM CDT Cristina Pritchard MD PATHOLOGY/ CYTOLOGY [facility] [address] [place] [address], [place] from Last 3 Months or Most Recently Relevant to Health Maintenance Care Teams Experience Design Director Relationship Specialty Start Date End Date Pcp, No . PCP - General 03/21/22 Gisell Graves MD [address] [facility] [place] [address] Family Practice 03/21/22 Thalia Kenney MD [address] [place] [address] Rheumatology Rheumatology 09/02/15
== END 2023-12-24 09:36 | disposition home or self-care (01) ==
LOC: NFLDREF 12-25 05:13
PROVIDERS: PCP Family Medicine; Referring Provider Family Medicine; Visit Provider Physician Assistant
DX: N92.0 Excessive and frequent menstruation with regular cycle (principal); Z86.32 Personal history of gestational diabetes; Z13.220 Encounter for screening for lipoid disorders
CPT/HCPCS: 80061; 82947; 84443

== ENCOUNTER 2024-01-29 07:50 | Outpatient (CLI) | payer BC, SELFPAY ==
--- OUTSIDE RECORDS SUMMARY | 2024-02-03 03:54 | XMS_ITS | Continuity of Care Document ---
Author Organization [facility] Address [address] [place] [address] Phone Care Team Providers Care Platform Beater Name Role Phone Heather Carlos MD Unavailable [...] route every day 100 MG - Active HUMIRA(CF) PEN 40 MG/0.4 ML INJECT 0.4 ML UNDER THE SKIN EVERY 2 WEEKS IN THE ABDOMEN OR THIGH (ROTATE SITES) - No Longer Active Problems Condition Type [...] Wbc Dna Antibody, Single Strand Dna Antibody, [place] Nuclear Antigen Antibodies Advance Directives Directive Yes / No Effective Date File Name No Information Encounters Encounter Description Practice Location Reason(s) For Visit Diagnoses Date Provider Providers Copied on Encounter [facility] , [address], [place], [address], [place] tel:[phone] [facility] No Information 4 Terrance Romero. [facility] [address], [place], [address], [place]. tel:[phone] [facility] , [address], [place], [address], [place] tel:[phone] [facility] [place] No Information 4 Terrance Romero. [facility] [address], [place], [address], [place]. tel:[phone] Office/Outpa tient Visit, Est [facility] , [address], [place], [address], [place] tel:[phone] [facility] , Follow Up of Psoriatic arthritis (chief complaint) Other psoriatic arthropathyO ther adjunct faculty for medical terminology (current) drug therapy 4 Terrance Romero. [facility] [address], [place], [address], [place]. tel:[phone] Referring Provider: Heather Medellin, [facility] [address], [place], [address]. tel:[phone] Office/Outpa tient Visit, Est [facility] , [address], [place], [address], [place] tel:[phone] [facility] , Follow Up of Psoriatic arthritis (chief complaint) Other psoriatic arthropathyO ther prison (current) drug therapy 3 Terrance Romero. [facility] [address], [place], [address], [place]. tel:[phone] Referring Provider: Heather Medellin, [facility] [address], [place], [address]. tel:[phone] Office/Outpa tient Visit, Est [facility] , [address], [place], [address], [place] tel:[phone] [facility] , Follow Up of Psoriatic arthritis (chief complaint) Other psoriatic arthropathyO ther adjunct faculty for medical terminology (current) drug therapy 3 Terrance Romero. [facility] [address], [place], [address], [place]. tel:[phone] Referring Provider: Heather Medellin, [facility] [address], [place], [address]. tel:[phone] Office/Outpa tient Visit, Est [facility] , [address], [place], [address], [place] tel:[phone] [facility] , Follow Up of Rheumatoid arthritis (chief complaint) Other psoriatic arthropathyO ther prison (current) drug therapy 1 Terrance Romero. [facility] [address], [place], [address], [place]. tel:[phone] Referring Provider: Heather Medellin, [facility] [address], [place], [address]. tel:[phone] Office/Outpa tient Visit, Est [facility] , [address], [place], [address], [place] tel:[phone] [facility] , Follow Up of Rheumatoid arthritis (chief complaint) Other psoriatic arthropathyO ther prison (current) drug therapy 1 Terrance Romero. [facility] [address], [place], [address], [place]. tel:[phone] Referring Provider: Heather Medellin, [facility] [address], [place], [address]. tel:[phone] Office/Outpa tient Visit, New [facility] , [address], [place], [address], [place] tel:[phone] [facility] , Rheumatoid arthritis (chief complaint) Other psoriatic arthropathyO ther prison (current) drug therapy 1 Terrance Romero. [facility] [address], [place], [address], [place]. tel:[phone] Referring Provider: Heather Medellin, [facility] [address], [place], [address]. tel:[phone] [facility] , [address], [place], [address], [place] tel:[phone] [facility] , No Information 1 Terrance Romero. [facility] [address], [place], [address], [place]. tel:[phone] Referring Provider: Heather Medellin, [facility] [address], [place], [address]. tel:[phone] Family History Family Member Type Diagnosis Age At Onset Mother Problem rheumatoid arthritis Maternal grandmother Problem rheumatoid arthritis Immunizations Vaccine Date Status Comments COVID-19 Pfizer administered Note: 2020 ; Source: Other Provider Payers Payer name Insurance type Covered green party ID Jose Alfredo oviedo(s) [facility] [id number] Social History Type Description Quantity Date Captured Comments Sex Female Smoking Status No Information Chief Complaint And Reason For Visit No Information Reason For Referral Reason For Referral No Information History Of Present Illness Encounter Date Complaint History Of Prese nt Illness Follow Up of Psoriatic arthritis Follow Up of Psoriatic arthritis Follow Up of Psoriatic arthritis Follow Up of Rheumatoid arthriti s Follow Up of Rheumatoid arthriti s Rheumatoid arthritis Functional Status Date Functional Assessmen t No Information Instructions Date Instruction Additional Infor mation No Information Assessments Type Assessment Date No Information Patient Care Teams Name Effective Dates (start - stop) Status Members No Information
--- OUTSIDE RECORDS SUMMARY | 2024-02-03 03:54 | XMS_ITS | Clinical Summary ---
Author Organization [facility] [place] [facility] Address [place], [place] [address] Care Team Providers Care Legal Cashier Name Role Phone Pcp, No Primary Care Provider Unavailabl e Gisell Graves MD Unavailable [phone] Thalia Kenney MD Unavailable [phone] Allergies No known active allergies Medications Medication [...] Comments Blood Pressure 112/70 06/17/2018 2:01 PM DENTAL PROFESSIONAL Pulse 68 08/13/2017 10:27 AM DENTAL PROFESSIONAL Temperature 36.6 ??C (97.8 ??F) 07/07/2017 1:12 AM CS T Respiratory Rate 16 08/13/2017 10:27 AM DENTAL PROFESSIONAL Oxygen Saturation 100% 07/07/2017 1:12 AM DENTAL PROFESSIONAL Inhaled Oxygen Concentration - - Weight 63 kg (139 lb) 06/17/2018 2:01 PM DENTAL PROFESSIONAL Height 158.8 cm (5' 2.5) 06/17/2018 2:01 PM DENTAL PROFESSIONAL Body Mass Index 25.02 06/17/2018 2:01 PM DENTAL PROFESSIONAL Plan of Treatment Health Maintenance Due Date [...] Procedure Name Priority Date/Time Associated Diagnosis Comments TOURIST INFORMATION OFFICER THIN PREP PAP SCREEN IMAGED Routine 03/28/2020 1:45 PM CDT from Last 3 Months or Most Recently Relevant to Health Maintenance Results * TOURIST INFORMATION OFFICER THIN PREP PAP SCREEN IMAGED (03/28/2020 1:45 PM CDT) Case Report Gynecologic Cytology Report ? Case: [id number] ? Authorizing Provider: ??Cristina Pritchard ?Collected: ? 03/28/2020 1345 ? Mala, ? Ordering Location: ? [facility] ?Received: ?03/30/2020822 ? First Screen: ?Irmarmchristine, Jessica ? Specimen: ?TOURIST INFORMATION OFFICER ThinPrep Vial Screening, Cervical/Vaginal ? 04/07/2020 1:39 PM CDT [facility] INTERPRETATION/ RESULT NEGATIVE FOR INTRAEPITHELIAL LESION OR MALIGNANCY (NIL) (none) 04/07/2020 1:39 PM CDT [facility] IMEN ADEQUACY Satisfactory for evaluation No endocervical component seen in a patient 04/07/2020 1:39 PM CDT [facility] HPV REQUEST HPV if ASCUS 04/07/2020 1:39 PM CDT [facility] Menstrual Status 04/07/2020 1:39 PM CDT [facility] Additional Information 04/07/2020 1:39 PM CDT [facility] Comment: Interpreted at [facility] [employer] [facility] - [address], [place] [address] Automated Review Successful 04/07/2020 1:39 PM CDT [facility] Comment:Specimen processed s uccessfully by automated branch or department chief librarian device, ThinPrep Imaging System, [employer] Note The pap test is a [...] and malignant lesions. 04/07/2020 1:39 PM CDT [facility] Other (Cervical/Vagina l) 03/28/2020 1:45 PM CDT 03/30/2020 8:23 AM CDT Cristina Pritchard MD PATHOLOGY/ CYTOLOGY [facility] [address] [place] [address], [place] from Last 3 Months or Most Recently Relevant to Health Maintenance Care Teams Legal Cashier Relationship Specialty Start Date End Date Pcp, No . PCP - General 03/21/22 Gisell Graves MD [address] [facility] [address] [address] Family Practice 03/21/22 Thalia Kenney MD [address] [place] [address] Rheumatology Rheumatology 09/02/15
--- OUTSIDE RECORDS SUMMARY | 2024-02-03 03:54 | XMS_ITS | Clinical Summary ---
Author Organization [facility] Address [address] [address] Care Team Providers Care Diesel Powerplant Supervisor Name Role Phone Huyen Mandujano MD Primary Care Provider [phone] Source Comments You are receiving this document [...] for each transition of care or referral. [facility] Allerg[facility] Active Allergy Reactions Criticality Noted Date [...] 2022-2 4 season) 2023 11/05/2020, 10/15/2020 Influenza (#1) 2024 05/05/2020 DTaP/Tdap/Td (2 - Tdap) 08/08/2030 [...] Negative (Non Reactive) 12/10/2019 5:59 PM CDT [facility] Comment:Antibodies to HCV no t detected. Does not exclude the possiblity of exposure to HCV. Blood Venipuncture / Unknown 12/10/2019 2:37 PM CDT 12/10/2019 2:37 PM CDT Ayanna Whitley MD LAB_1 [facility] [address] [place], [place] [address] [place] [address] from Last 3 Months or Most Recently Relevant to Health Maintenance Care Teams Diesel Powerplant Supervisor Relationship Specialty Start Date End Date Huyen Mandujano MD [address] [place] [address] PCP - General Obstetrics Gynecology 10/09/19
== END 2024-01-29 07:51 | disposition home or self-care (01) ==
LOC: NFLDREF 02-03 03:52
PROVIDERS: PCP Family Medicine; Referring Provider Family Medicine; Visit Provider Family Medicine
DX: R21 Rash and other nonspecific skin eruption (principal)
CPT/HCPCS: 86747

== ENCOUNTER 2024-05-12 08:19 | Outpatient (CLI) | payer BC, SELFPAY ==
--- OUTSIDE RECORDS SUMMARY | 2024-05-12 10:07 | XMS_ITS | Continuity of Care Document ---
Author Organization [facility] Address [address] [place] [address] Phone Care Team Providers Care Security Nurse Name Role Phone Hetaher Carlos MD Unavailable Unavailable Allergies, Adverse Reactions, [...] Wbc Dna Antibody, Single Strand Dna Antibody, [place] Nuclear Antigen Antibodies Advance Directives Directive Yes / No Effective Date File Name No Information Encounters Encounter Description Practice Location Reason(s) For Visit Diagnoses Date Provider Providers Copied on Encounter [facility] , [address], [place], [address], [place] tel:[phone] [facility] [place] [facility] No Information 4 Terrance Romero. [facility] [address], [place], [address], [place]. tel:[phone] [facility] , [address], [place], [address], [place] tel:[phone] [facility] No Information 4 Terrance Romero. [facility] [address], [place], [address], [place]. tel:[phone] Office/Outpa tient Visit, Est [facility] , [address], [place], [address], [place] tel:[phone] [facility] , Follow Up of Psoriatic arthritis (chief complaint) Other psoriatic arthropathyO ther retirement (current) drug therapy 4 Terrance Romero. [facility] [address], [place], [address], [place]. tel:[phone] Referring Provider: Heather Medellin, [facility] [address], [place], [address]. tel:[phone] Office/Outpa tient Visit, Est [facility] , [address], [place], [address], [place] tel:[phone] [facility] , Follow Up of Psoriatic arthritis (chief complaint) Other psoriatic arthropathyO ther retirement (current) drug therapy 3 Terrance Romero. [facility] [address], [place], [address], [place]. tel:[phone] Referring Provider: Heather Medellin, [facility] [address], [place], [address]. tel:[phone] Office/Outpa tient Visit, Est [facility] , [address], [place], [address], [place] tel:[phone] [facility] , Follow Up of Psoriatic arthritis (chief complaint) Other psoriatic arthropathyO ther intermediate school teacher (current) drug therapy 3 Terrance Romero. [facility] [address], [place], [address], [place]. tel:[phone] Referring Provider: Heather Medellin, [facility] [address], [place], [address]. tel:[phone] Office/Outpa tient Visit, Est [facility] , [address], [place], [address], [place] tel:[phone] [facility] , Follow Up of Rheumatoid arthritis (chief complaint) Other psoriatic arthropathyO ther intermediate school teacher (current) drug therapy 1 Terrance Romero. [facility] [address], [place], [address], [place]. tel:[phone] Referring Provider: Heather Medellin, [facility] [address], [place], [address]. tel:[phone] Office/Outpa tient Visit, Est [facility] , [address], [place], [address], [place] tel:[phone] [facility] , Follow Up of Rheumatoid arthritis (chief complaint) Other psoriatic arthropathyO ther retirement (current) drug therapy 1 Terrance Romero. [facility] [address], [place], [address], [place]. tel:[phone] Referring Provider: Heather Medellin, [facility] [address], [place], [address]. tel:[phone] Office/Outpa tient Visit, New [facility] , [address], [place], [address], [place] tel:[phone] [facility] , Rheumatoid arthritis (chief complaint) Other psoriatic arthropathyO ther intermediate school teacher (current) drug therapy 1 Terrance Romero. [facility] [address], [place], [address], [place]. tel:[phone] Referring Provider: Heather Medellin, [facility] [address], [place], [address]. tel:[phone] [facility] , [address], [place], [address], [place] tel:[phone] [facility] , No Information 1 Terrance Romero. [facility] [address], [place], [address], [place]. tel:[phone] Referring Provider: Heather Medellin, [facility] [address], [place], [address]. tel:[phone] Family History Family Member Type Diagnosis Age At Onset Mother Problem rheumatoid arthritis Maternal grandmother Problem rheumatoid arthritis Immunizations Vaccine Date Status Comments COVID-19 Pfizer administered Note: 2020 ; Source: Other Provider Payers Payer name Insurance type Covered constitution party ID Jose Alfredo oviedo(s) [facility] [id number] Social History Type Description Quantity Date Captured [...]
--- OUTSIDE RECORDS SUMMARY | 2024-05-12 10:07 | XMS_ITS | Clinical Summary ---
Author Organization [facility] Address [address], [place] [address] Care Team Providers Care Section Leader Screen Printing Name Role Phone Huyen Mandujano MD Primary [...] for each transition of care or referral. [email or web address] Allergies Active Allergy Reactions Criticality Noted Date [...] HepB (1) 02/25/2015 COVID-19 Vaccine (3 - 2023-2 5 season) 2024 11/05/2020, 10/15/2020 Influenza (#1) 2024 05/05/2020 DTaP/Tdap/Td [...] on patient's age to complete this topic RSV Aged Out No longer eligi ble based [...] Negative (Non Reactive) 12/10/2019 5:59 PM CDT [facility] Comment:Antibodies to HCV no t detected. Does not exclude the possiblity of exposure to HCV. Blood Venipuncture / Unknown 12/10/2019 2:37 PM CDT 12/10/2019 2:37 PM CDT Ayanna Whitley MD LAB[facility] [address] [place], [place] [address] [place] [address] from Last 3 Months or Most Recently Relevant to Health Maintenance Care Teams Section Leader Screen Printing Relationship Specialty Start Date End Date Huyen Mandujano MD [address] [place] [address] PCP - General Obstetrics Gynecology 10/09/19
--- OUTSIDE RECORDS SUMMARY | 2024-05-12 10:07 | XMS_ITS | Clinical Summary ---
Author Organization [facility] Address [place], [place] [address] Care Team Providers Care Record Press Operator Name Role Phone Pcp, No Primary Care Provider Unavailabl e Gisell Graves MD Unavailable [phone] Thalia Kenney MD Unavailable [phone] Allergies No known active allergies Medications Medication [...] levonorgestrel 1 Device IUD intrauterine (5 years) (KYLEENA)Indications:IUD (intrauterine device) in place 1 Device IU Q 5 YEARS 08/13/2017 Active Active Problems Problem Noted Date Diagnosed Date Abnormal heart rate or rhythm affecting management of mother 03/22/2022 Maternal rheumatoid arthritis complicating pregn peter 03/22/2022 Diet controlled gestational diabetes mellitus (GDM) in third trimester 03/22/2022 IUD (intrauterine device) in place 08/13/2017 Overview (08/13/2017): Kurtisena placed 07/2017 Reactive inflammatory arthritis 03/25/2017 Anxiety disorder 02/27/2016 Irritable bowel syndrome (IBS) 10/11/2014 Atypical anxiety disorder 11/27/2013 Major depressive disorder, single episode, moder ate 10/03/2012 Myopia 04/07/2012 Other acne 01/11/2010 Immunizations Name Administration Dates Next Due DTP-HIB 06/04/1997, 7,1996,04/28 DTaP 01/20/2001 Hepatitis A (Peds) 07/19/2014,11/20/2011 Hepatitis B (Peds) 1996,1996, 996 Human Papilloma Virus Vaccine 02/27/2007, 007,06/15/2006 Inactivated Polio Vaccine 01/20/2001 Influenza, IIV3 (Age >=3 years) 04/21/20 12,05/29/2007,06/15/2006,05/27,07/17/2002,06/18/2002 Influenza, IIV4 04/22/2018,03/25/2017,07/19/2014 MENINGOCOCCAL VACCINE 2 VIAL 2MO-55YO (MENVEO) 03/23/2014 MMR 01/20/2001,06/04/1997 Meningococcal Vaccine (Menactra) 03/09/2008 Oral Polio Vaccine 06/04/1997,1996, 996 Tdap 04/24/2018,03/09/2008 [...] Comments Blood Pressure 112/70 06/17/2018 2:01 PM COILER OPERATOR Pulse 68 08/13/2017 10:27 AM COILER OPERATOR Temperature 36.6 ??C (97.8 ??F) 07/07/2017 1:12 AM CS T Respiratory Rate 16 08/13/2017 10:27 AM COILER OPERATOR Oxygen Saturation 100% 07/07/2017 1:12 AM COILER OPERATOR Inhaled Oxygen Concentration - - Weight 63 kg (139 lb) 06/17/2018 2:01 PM COILER OPERATOR Height 158.8 cm (5' 2.5) 06/17/2018 2:01 PM COILER OPERATOR Body Mass Index 25.02 06/17/2018 2:01 PM COILER OPERATOR Plan of Treatment Health Maintenance Due Date [...] 03/28/2020, 2016 COVID-19 vaccine series ( season) 2024 11/28/2021, 11/05/2020, 10/15/2020 Influenza for age 9-49 03/29/2024 8, 03/25/2017, 07/19/2014, Additional history exists Tetanus booster 04/24/2028 04/24/2018, 03/09/2008 Tdap Completed 04/24/2018, 03/09/2008 Pneumococcal series for age 6-64 Aged Out No longer eligible based on patient's age to complete this topic Procedures Procedure Name Priority Date/Time Associated Diagnosis Comments LABOR ECONOMICS TEACHER THIN PREP PAP SCREEN IMAGED Routine 03/28/2020 1:45 PM CDT from Last 3 Months or Most Recently Relevant to Health Maintenance Results * LABOR ECONOMICS TEACHER THIN PREP PAP SCREEN IMAGED (03/28/2020 1:45 PM CDT) Case Report Gynecologic Cytology Report ? Case: [id number] ? Authorizing Provider: ??Cristina Pritchard ?Collected: ? 03/28/2020 1345 ? Mala, MD ? Ordering Location: ? [facility] ?Received: ?03/30/2020822 ? First Screen: ?Jessica Taylor ? Specimen: ?LABOR ECONOMICS TEACHER ThinPrep Vial Screening, Cervical/Vaginal ? 04/07/2020 1:39 PM CDT [facility] INTERPRETATION/ RESULT NEGATIVE FOR INTRAEPITHELIAL LESION OR MALIGNANCY (NIL) (none) 04/07/2020 1:39 PM CDT [facility] IMEN ADEQUACY Satisfactory for evaluation No endocervical component seen in a patient 04/07/2020 1:39 PM CDT [facility] HPV REQUEST HPV if ASCUS 04/07/2020 1:39 PM CDT [facility] Menstrual Status 04/07/2020 1:39 PM CDT [facility] Additional Information 04/07/2020 1:39 PM CDT [facility] Comment: Interpreted at [facility] [email or web address] [facility] - [address], [place] [address] Automated Review Successful 04/07/2020 1:39 PM CDT [facility] Comment:Specimen processed s uccessfully by automated stone fabricator device, ThinPrep Imaging System, [employer] Note The pap test is a [...] and malignant lesions. 04/07/2020 1:39 PM CDT [facility] Other (Cervical/Vagina l) 03/28/2020 1:45 PM CDT 03/30/2020 8:23 AM CDT Cristina Pritchard MD PATHOLOGY/ CYTOLOGY [facility] [address] [place] [address], [place] from Last 3 Months or Most Recently Relevant to Health Maintenance Care Teams Record Press Operator Relationship Specialty Start Date End Date Pcp, No . PCP - General 03/21/22 Gisell Graves MD [address] [place] [address] [address] Family Practice 03/21/22 Thalia Kenney MD [address] [place] [address] Rheumatology Rheumatology 09/02/15
== END 2024-05-12 08:20 | disposition home or self-care (01) ==
LOC: NFLDREF 10:02
PROVIDERS: PCP Family Medicine; Visit Provider Obstetrics & Gynecology
DX: R35.0 Frequency of micturition (principal); R30.9 Painful micturition, unspecified
CPT/HCPCS: 87086; 87186

== ENCOUNTER 2024-05-14 08:00 | Outpatient (CLI) | payer BC, SELFPAY ==
--- OUTSIDE RECORDS SUMMARY | 2024-05-18 02:03 | XMS_ITS | Continuity of Care Document ---
Author Organization [facility] Address [address] [place] [address] Phone Care Team Providers Care Marketing Team Lead Name Role Phone Heather Carlos MD Unavailable [...] Wbc Dna Antibody, Single Strand Dna Antibody, Ione Nuclear Antigen Antibodies Advance Directives Directive Yes / No Effective Date File Name No Information Encounters Encounter Description Practice Location Reason(s) For Visit Diagnoses Date Provider Providers Copied on Encounter [facility] , [address], [place], [address], [place] tel:[phone] [facility] [place] No Information 4 Terrance Romero. [facility] [address], [place], [address], [place]. tel:[phone] [facility] , [address], [place], [address], [place] tel:[phone] [facility] [place] No Information 4 Terrance Romero. [facility] [address], [place], [address], [place]. tel:[phone] Office/Outpa tient Visit, Est [facility] , [address], [place], [address], [place] tel:[phone] [facility] , Follow Up of Psoriatic arthritis (chief complaint) Other psoriatic arthropathyO ther half-way (current) drug therapy 4 Terrance Romero. [facility] [address], [place], [address], [place]. tel:[phone] Referring Provider: Heather Medellin, [facility] [address], [place], [address]. tel:[phone] Office/Outpa tient Visit, Est [facility] , [address], [place], [address], [place] tel:[phone] [facility] , Follow Up of Psoriatic arthritis (chief complaint) Other psoriatic arthropathyO ther half-way (current) drug therapy 3 Terrance Romero. [facility] [address], [place], [address], [place]. tel:[phone] Referring Provider: Heather Medellin, [facility] [address], [place], [address]. tel:[phone] Office/Outpa tient Visit, Est [facility] , [address], [place], [address], [place] tel:[phone] [facility] , Follow Up of Psoriatic arthritis (chief complaint) Other psoriatic arthropathyO ther tank terminal gauger (current) drug therapy 3 Terrance Romero. [facility] [address], [place], [address], [place]. tel:[phone] Referring Provider: Heather Medellin, [facility] [address], [place], [address]. tel:[phone] Office/Outpa tient Visit, Est [facility] , [address], [place], [address], [place] tel:[phone] [facility] , Follow Up of Rheumatoid arthritis (chief complaint) Other psoriatic arthropathyO ther tank terminal gauger (current) drug therapy 1 Terrance Romero. [facility] [address], [place], [address], [place]. tel:[phone] Referring Provider: Heather Medellin, [facility] [address], [place], [address]. tel:[phone] Office/Outpa tient Visit, Est [facility] , [address], [place], [address], [place] tel:[phone] [facility] , Follow Up of Rheumatoid arthritis (chief complaint) Other psoriatic arthropathyO ther half-way (current) drug therapy 1 Terrance Romero. [facility] [address], [place], [address], [place]. tel:[phone] Referring Provider: Heather Medellin, [facility] [address], [place], [address]. tel:[phone] Office/Outpa tient Visit, New [facility] , [address], [place], [address], [place] tel:[phone] [facility] , Rheumatoid arthritis (chief complaint) Other psoriatic arthropathyO ther tank terminal gauger (current) drug therapy 1 Terrance Romero. [facility] [address], [place], [address], [place]. tel:[phone] Referring Provider: Heather Medellin, [facility] [address], [place], [address]. tel:[phone] [facility] , [address], [place], [address], [place] tel:[phone] [facility] , No Information 1 Terrance Romero. [facility] [address], [place], [address], [place]. tel:[phone] Referring Provider: Heather Medellin, [facility] [address], [place], [address]. tel:[phone] Family History Family Member Type Diagnosis Age At Onset Mother Problem rheumatoid arthritis Maternal grandmother Problem rheumatoid arthritis Immunizations Vaccine Date Status Comments COVID-19 Pfizer administered Note: 2020 ; Source: Other Provider Payers Payer name Insurance type Covered green party ID Jose Alfredo oviedo(s) [facility] [id number] Social History Type Description Quantity Date Captured [...]
--- OUTSIDE RECORDS SUMMARY | 2024-05-18 02:03 | XMS_ITS | Clinical Summary ---
Author Organization [facility] Address [address], [place] [address] Care Team Providers Care Grades 9 Thru 12 Visiting Teacher Name Role Phone Huyen Mandujano MD Primary [...] for each transition of care or referral. [facility] Allerg[facility] Active Allergy Reactions Criticality Noted Date [...] Negative (Non Reactive) 12/10/2019 5:59 PM CDT [facility] Comment:Antibodies to HCV no t detected. Does not exclude the possiblity of exposure to HCV. Blood Venipuncture / Unknown 12/10/2019 2:37 PM CDT 12/10/2019 2:37 PM CDT Ayanna Whitley MD LAB[facility] [address] [place], [place] [address] [place] [address] from Last 3 Months or Most Recently Relevant to Health Maintenance Care Teams Grades 9 Thru 12 Visiting Teacher Relationship Specialty Start Date End Date Huyen Mandujano MD [address] [place] [address] PCP - General Obstetrics Gynecology 10/09/19
--- OUTSIDE RECORDS SUMMARY | 2024-05-18 02:03 | XMS_ITS | Clinical Summary ---
Author Organization [facility] Address [place], [place] [address] Care Team Providers Care Oxygen Equipment Technician Name Role Phone Pcp, No Primary Care Provider Unavailabl e Gisell Graves MD Unavailable [phone] Thalia Kenney MD Unavailable [phone] Allergies No known active allergies Medications Medication [...] Comments Blood Pressure 112/70 06/17/2018 2:01 PM TORPEDO SHOOTER Pulse 68 08/13/2017 10:27 AM TORPEDO SHOOTER Temperature 36.6 ??C (97.8 ??F) 07/07/2017 1:12 AM CS T Respiratory Rate 16 08/13/2017 10:27 AM TORPEDO SHOOTER Oxygen Saturation 100% 07/07/2017 1:12 AM TORPEDO SHOOTER Inhaled Oxygen Concentration - - Weight 63 kg (139 lb) 06/17/2018 2:01 PM TORPEDO SHOOTER Height 158.8 cm (5' 2.5) 06/17/2018 2:01 PM TORPEDO SHOOTER Body Mass Index 25.02 06/17/2018 2:01 PM TORPEDO SHOOTER Plan of Treatment Health Maintenance Due Date [...] Procedure Name Priority Date/Time Associated Diagnosis Comments TEST CONSULTANT THIN PREP PAP SCREEN IMAGED Routine 03/28/2020 1:45 PM CDT from Last 3 Months or Most Recently Relevant to Health Maintenance Results * TEST CONSULTANT THIN PREP PAP SCREEN IMAGED (03/28/2020 1:45 PM CDT) Case Report Gynecologic Cytology Report ? Case: [id number] ? Authorizing Provider: ??Cristina Pritchard ?Collected: ? 03/28/2020 1345 ? Mala, MD ? Ordering Location: ? [facility] ?Received: ?03/30/2020822 ? First Screen: ?Jessica Taylor ? Specimen: ?TEST CONSULTANT ThinPrep Vial Screening, Cervical/Vaginal ? 04/07/2020 1:39 PM CDT [facility] INTERPRETATION/ RESULT NEGATIVE FOR INTRAEPITHELIAL LESION OR MALIGNANCY (NIL) (none) 04/07/2020 1:39 PM CDT [facility] IMEN ADEQUACY Satisfactory for evaluation No endocervical component seen in a patient 04/07/2020 1:39 PM CDT [facility] HPV REQUEST HPV if ASCUS 04/07/2020 1:39 PM CDT [facility] Menstrual Status 04/07/2020 1:39 PM CDT [facility] Additional Information 04/07/2020 1:39 PM CDT [facility] Comment: Interpreted at [facility] - [address], [place] [address] Automated Review Successful 04/07/2020 1:39 PM CDT [facility] Comment:Specimen processed s uccessfully by automated soil tester device, ThinPrep Imaging System, [employer] Note The pap test is a [...] and malignant lesions. 04/07/2020 1:39 PM CDT [facility] Other (Cervical/Vagina l) 03/28/2020 1:45 PM CDT 03/30/2020 8:23 AM CDT Cristina Pritchard MD PATHOLOGY/ CYTOLOGY [facility] [address] [place] [address], [place] from Last 3 Months or Most Recently Relevant to Health Maintenance Care Teams Oxygen Equipment Technician Relationship Specialty Start Date End Date Pcp, No . PCP - General 03/21/22 Gisell Graves MD [address] [place], [place] [address] [address] Family Practice 03/21/22 Thalia Kenney MD [address] [facility] [address] [place] [address] Rheumatology Rheumatology 09/02/15
== END 2024-05-14 08:01 | disposition home or self-care (01) ==
LOC: NFLDREF 05-18 02:00
PROVIDERS: PCP Family Medicine; Referring Provider Family Medicine; Visit Provider Obstetrics & Gynecology
DX: N97.0 Female infertility associated with anovulation (principal)
CPT/HCPCS: 84144

== ENCOUNTER 2024-05-21 14:17 | Outpatient (CLI) | payer BC, SELFPAY ==
--- OUTSIDE RECORDS SUMMARY | 2024-05-21 14:20 | XMS_ITS | Clinical Summary ---
Author Organization [facility] Address [address], [place] [address] Care Team Providers Care Green Chainer Name Role Phone Huyen Mandujano MD Primary [...] for each transition of care or referral. [facility] Allerg[facility] Active Allergy Reactions Criticality Noted Date [...] Negative (Non Reactive) 12/10/2019 5:59 PM CDT [facility] Comment:Antibodies to HCV no t detected. Does not exclude the possiblity of exposure to HCV. Blood Venipuncture / Unknown 12/10/2019 2:37 PM CDT 12/10/2019 2:37 PM CDT Ayanna Whitley MD [facility] [address] [place], [place] [address] [place] [address] from Last 3 Months or Most Recently Relevant to Health Maintenance Care Teams Green Chainer Relationship Specialty Start Date End Date Huyen Mandujano MD [address] [place] [address] PCP - General Obstetrics Gynecology 10/09/19
--- OUTSIDE RECORDS SUMMARY | 2024-05-21 14:21 | XMS_ITS | Continuity of Care Document ---
Author Organization [facility] Address [address] [place] [address] Phone Care Team Providers Care Boatbuilder Apprentice Wood Name Role Phone Heather Carlos MD Unavailable [...] Wbc Dna Antibody, Single Strand Dna Antibody, [place] Nuclear Antigen Antibodies Advance Directives Directive Yes / No Effective Date File Name No Information Encounters Encounter Description Practice Location Reason(s) For Visit Diagnoses Date Provider Providers Copied on Encounter [facility] , [address], [place], [address], [place] tel:[phone] [facility] [place] No Information 4 Terrance Romero. [facility] [address], [place], [address], [place]. tel:[phone] [facility] , [address], [place], [address], [place] tel:[phone] [facility] [place] No Information 4 Terrance Romero. [facility] [address], [place], [address], [place]. tel:[phone] Office/Outpa tient Visit, Est [facility] , [address], [place], [address], [place] tel:[phone] [facility] , Follow Up of Psoriatic arthritis (chief complaint) Other psoriatic arthropathyO ther longterm (current) drug therapy 4 Terrance Romero. [facility] [address], [place], [address], [place]. tel:[phone] Referring Provider: Heather Medellin, [facility] [address], [place], [address]. tel:[phone] Office/Outpa tient Visit, Est [facility] , [address], [place], [address], [place] tel:[phone] [facility] , Follow Up of Psoriatic arthritis (chief complaint) Other psoriatic arthropathyO ther longterm (current) drug therapy 3 Terrance Romero. [facility] [address], [place], [address], [place]. tel:[phone] Referring Provider: Heather Medellin, [facility] [address], [place], [address]. tel:[phone] Office/Outpa tient Visit, Est [facility] , [address], [place], [address], [place] tel:[phone] [facility] , Follow Up of Psoriatic arthritis (chief complaint) Other psoriatic arthropathyO ther supervisor intermediates (current) drug therapy 3 Terrance Romero. [facility] [address], [place], [address], [place]. tel:[phone] Referring Provider: Heather Medellin, [facility] [address], [place], [address]. tel:[phone] Office/Outpa tient Visit, Est [facility] , [address], [place], [address], [place] tel:[phone] [facility] , Follow Up of Rheumatoid arthritis (chief complaint) Other psoriatic arthropathyO ther supervisor intermediates (current) drug therapy 1 Terrance Romero. [facility] [address], [place], [address], [place]. tel:[phone] Referring Provider: Heather Medellin, [facility] [address], [place], [address]. tel:[phone] Office/Outpa tient Visit, Est [facility] , [address], [place], [address], [place] tel:[phone] [facility] , Follow Up of Rheumatoid arthritis (chief complaint) Other psoriatic arthropathyO ther longterm (current) drug therapy 1 Terrance Romero. [facility] [address], [place], [address], [place]. tel:[phone] Referring Provider: Heather Medellin, [facility] [address], [place], [address]. tel:[phone] Office/Outpa tient Visit, New [facility] , [address], [place], [address], [place] tel:[phone] [facility] , Rheumatoid arthritis (chief complaint) Other psoriatic arthropathyO ther supervisor intermediates (current) drug therapy 1 Terrance Romero. [facility] [address], [place], [address], [place]. tel:[phone] Referring Provider: Heather Medellin, [facility] [address], [place], [address]. tel:[phone] [facility] , [address], [place], [address], [place] tel:[phone] [facility] , No Information 1 Terrance Romero. [facility] [address], [place], [address], [place]. tel:[phone] Referring Provider: Heather Medellin, [facility] [address], [place], [address]. tel:[phone] Family History Family Member Type Diagnosis Age At Onset Mother Problem rheumatoid arthritis Maternal grandmother Problem rheumatoid arthritis Immunizations Vaccine Date Status Comments COVID-19 Pfizer administered Note: 2020 ; Source: Other Provider Payers Payer name Insurance type Covered republican ID Jose Alfredo oviedo(s) [facility] [id number] Social History Type Description Quantity Date Captured [...]
--- OUTSIDE RECORDS SUMMARY | 2024-05-21 14:21 | XMS_ITS | Clinical Summary ---
Author Organization [facility] Address [place], [place] [address] Care Team Providers Care Fire Equipment Repairer Inspector Name Role Phone Pcp, No Primary Care Provider Unavailabl e Gisell Graves MD Unavailable [phone] Thalia Kenney MD Unavailable [phone] Allergies No known active allergies Medications Medication [...] Comments Blood Pressure 112/70 06/17/2018 2:01 PM GOAT FARMER Pulse 68 08/13/2017 10:27 AM GOAT FARMER Temperature 36.6 ??C (97.8 ??F) 07/07/2017 1:12 AM CS T Respiratory Rate 16 08/13/2017 10:27 AM GOAT FARMER Oxygen Saturation 100% 07/07/2017 1:12 AM GOAT FARMER Inhaled Oxygen Concentration - - Weight 63 kg (139 lb) 06/17/2018 2:01 PM GOAT FARMER Height 158.8 cm (5' 2.5) 06/17/2018 2:01 PM GOAT FARMER Body Mass Index 25.02 06/17/2018 2:01 PM GOAT FARMER Plan of Treatment Health Maintenance Due Date [...] Procedure Name Priority Date/Time Associated Diagnosis Comments STATISTICS MANAGER THIN PREP PAP SCREEN IMAGED Routine 03/28/2020 1:45 PM CDT from Last 3 Months or Most Recently Relevant to Health Maintenance Results * STATISTICS MANAGER THIN PREP PAP SCREEN IMAGED (03/28/2020 1:45 PM CDT) Case Report Gynecologic Cytology Report ? Case: [id number] ? Authorizing Provider: ??Cristina Pritchard ?Collected: ? 03/28/2020 1345 ? Mala, MD ? Ordering Location: ? [facility] ?Received: ?03/30/2020822 ? First Screen: ?Jessica Taylor ? Specimen: ?STATISTICS MANAGER ThinPrep Vial Screening, Cervical/Vaginal ? 04/07/2020 1:39 PM CDT [facility] INTERPRETATION/ RESULT NEGATIVE FOR INTRAEPITHELIAL LESION OR MALIGNANCY (NIL) (none) 04/07/2020 1:39 PM CDT [facility] IMEN ADEQUACY Satisfactory for evaluation No endocervical component seen in a patient 04/07/2020 1:39 PM CDT [facility] HPV REQUEST HPV if ASCUS 04/07/2020 1:39 PM CDT [facility] Menstrual Status 04/07/2020 1:39 PM CDT [facility] Additional Information 04/07/2020 1:39 PM CDT [facility] Comment: Interpreted at [facility] [employer] [facility] - [address], [place] [address] Automated Review Successful 04/07/2020 1:39 PM CDT [facility] Comment:Specimen processed s uccessfully by automated plant general manager device, ThinPrep Imaging System, [employer] Note The pap test is a [...] AM CDT Cristina Pritchard MD PATHOLOGY/ CYTOLOGY [facility] [address] [place] [address], [place] from Last 3 Months or Most Recently Relevant to Health Maintenance Care Teams Fire Equipment Repairer Inspector Relationship Specialty Start Date End Date Pcp, No . PCP - General 03/21/22 Gisell Graves MD [address] [place], [place] [address] [address] Family Practice 03/21/22 Thalia Kenney MD [address] [facility] [address] [place] [address] Rheumatology Rheumatology 09/02/15
== END 2024-05-21 14:18 | disposition home or self-care (01) ==
LOC: NFLDREF 14:18
PROVIDERS: PCP Family Medicine; Visit Provider Obstetrics & Gynecology
DX: Z32.00 Encounter for pregnancy test, result unknown (principal)
CPT/HCPCS: 84702

== ENCOUNTER 2024-06-04 16:22 | Outpatient (CLI) | payer BC, SELFPAY ==
--- OUTSIDE RECORDS SUMMARY | 2024-06-08 21:10 | XMS_ITS | Clinical Summary ---
Author Organization [facility] Address [place], [place] [address] Care Team Providers Care Comb Setter Name Role Phone Pcp, No Primary Care Provider Unavailabl e Gisell Graves MD Unavailable [phone] Thalia Kenney MD Unavailable [phone] Allergies No known active allergies Medications Medication [...] Comments Blood Pressure 112/70 06/17/2018 2:01 PM SOFTWARE EDUCATOR Pulse 68 08/13/2017 10:27 AM SOFTWARE EDUCATOR Temperature 36.6 ??C (97.8 ??F) 07/07/2017 1:12 AM CS T Respiratory Rate 16 08/13/2017 10:27 AM SOFTWARE EDUCATOR Oxygen Saturation 100% 07/07/2017 1:12 AM SOFTWARE EDUCATOR Inhaled Oxygen Concentration - - Weight 63 kg (139 lb) 06/17/2018 2:01 PM SOFTWARE EDUCATOR Height 158.8 cm (5' 2.5) 06/17/2018 2:01 PM SOFTWARE EDUCATOR Body Mass Index 25.02 06/17/2018 2:01 PM SOFTWARE EDUCATOR Plan of Treatment Health Maintenance Due Date [...] Procedure Name Priority Date/Time Associated Diagnosis Comments COPY ROOM TECHNICIAN THIN PREP PAP SCREEN IMAGED Routine 03/28/2020 1:45 PM CDT from Last 3 Months or Most Recently Relevant to Health Maintenance Results * COPY ROOM TECHNICIAN THIN PREP PAP SCREEN IMAGED (03/28/2020 1:45 PM CDT) Case Report Gynecologic Cytology Report ? Case: [id number] ? Authorizing Provider: ??Cristina Pritchard ?Collected: ? 03/28/2020 1345 ? Mala, MD ? Ordering Location: ? [facility] ?Received: ?03/30/2020822 ? First Screen: ?Jessica Taylor ? Specimen: ?COPY ROOM TECHNICIAN ThinPrep Vial Screening, Cervical/Vaginal ? 04/07/2020 1:39 PM CDT [facility] INTERPRETATION/ RESULT NEGATIVE FOR INTRAEPITHELIAL LESION OR MALIGNANCY (NIL) (none) 04/07/2020 1:39 PM CDT [facility] IMEN ADEQUACY Satisfactory for evaluation No endocervical component seen in a patient 04/07/2020 1:39 PM CDT [facility] HPV REQUEST HPV if ASCUS 04/07/2020 1:39 PM CDT [facility] Menstrual Status 04/07/2020 1:39 PM CDT [facility] Additional Information 04/07/2020 1:39 PM CDT [facility] Comment: Interpreted at [facility] [employer] [facility] - [address], [place] [address] Automated Review Successful 04/07/2020 1:39 PM CDT [facility] Comment:Specimen processed s uccessfully by automated on air personality device, ThinPrep Imaging System, [employer] Note The pap test is a [...] and malignant lesions. 04/07/2020 1:39 PM CDT [facility] Other (Cervical/Vagina l) 03/28/2020 1:45 PM CDT 03/30/2020 8:23 AM CDT Cristina Pritchard MD PATHOLOGY/ CYTOLOGY [facility] [address] [place] [address], [place] from Last 3 Months or Most Recently Relevant to Health Maintenance Care Teams Comb Setter Relationship Specialty Start Date End Date Pcp, No . PCP - General 03/21/22 Gisell Graves MD [address] [place], [place] [address] [address] Family Practice 03/21/22 Thalia Kenney MD [address] [place] [address] Rheumatology Rheumatology 09/02/15
--- OUTSIDE RECORDS SUMMARY | 2024-06-08 21:10 | XMS_ITS | Continuity of Care Document ---
Author Organization [facility] Address [address] [place] [address] Phone Care Team Providers Care Senior Radiation Therapist Name Role Phone Heather Carlos MD Unavailable [...] Wbc Dna Antibody, Single Strand Dna Antibody, [place] Nuclear Antigen Antibodies Advance Directives Directive Yes / No Effective Date File Name No Information Encounters Encounter Description Practice Location Reason(s) For Visit Diagnoses Date Provider Providers Copied on Encounter [facility] , [address], [place], [address], [place] tel:[phone] [facility] No Information 4 Terrance Romero. [facility] [address], [place], [address], [place]. tel:[phone] [facility] , [address], [place], [address], [place] tel:[phone] [facility] No Information 4 Terrance Romero. [facility] [address], [place], [address], [place]. tel:[phone] Office/Outpa tient Visit, Est [facility] , [address], [place], [address], [place] tel:[phone] [facility] , Follow Up of Psoriatic arthritis (chief complaint) Other psoriatic arthropathyO ther termite treater (current) drug therapy 4 Terrance Romero. [facility] [address], [place], [address], [place]. tel:[phone] Referring Provider: Heather Medellin, [facility] [address], [place], [address]. tel:[phone] Office/Outpa tient Visit, Est [facility] , [address], [place], [address], [place] tel:[phone] [facility] , Follow Up of Psoriatic arthritis (chief complaint) Other psoriatic arthropathyO ther halfway (current) drug therapy 3 Terrance Romero. [facility] [address], [place], [address], [place]. tel:[phone] Referring Provider: Heather Medellin, [facility] [address], [place], [address]. tel:[phone] Office/Outpa tient Visit, Est [facility] , [address], [place], [address], [place] tel:[phone] [facility] , Follow Up of Psoriatic arthritis (chief complaint) Other psoriatic arthropathyO ther halfway (current) drug therapy 3 Terrance Romero. [facility] [address], [place], [address], [place]. tel:[phone] Referring Provider: Heather Medellin, [facility] [address], [place], [address]. tel:[phone] Office/Outpa tient Visit, Est [facility] , [address], [place], [address], [place] tel:[phone] [facility] , Follow Up of Rheumatoid arthritis (chief complaint) Other psoriatic arthropathyO ther termite treater (current) drug therapy 1 Terrance Romero. [facility] [address], [place], [address], [place]. tel:[phone] Referring Provider: Heather Medellin, [facility] [address], [place], [address]. tel:[phone] Office/Outpa tient Visit, Est [facility] , [address], [place], [address], [place] tel:[phone] [facility] , Follow Up of Rheumatoid arthritis (chief complaint) Other psoriatic arthropathyO ther halfway (current) drug therapy 1 Terrance Romero. [facility] [address], [place], [address], [place]. tel:[phone] Referring Provider: Heather Medellin, [facility] [address], [place], [address]. tel:[phone] Office/Outpa tient Visit, New [facility] , [address], [place], [address], [place] tel:[phone] [facility] , Rheumatoid arthritis (chief complaint) Other psoriatic arthropathyO ther termite treater (current) drug therapy 1 Terrance Romero. [facility] [address], [place], [address], [place]. tel:[phone] Referring Provider: Heather Medellin, [facility] [address], [place], [address]. tel:[phone] [facility] , [address], [place], [address], [place] tel:[phone] [facility] , No Information 1 Terrance Romero. [facility] [address], [place], [address], [place]. tel:[phone] Referring Provider: Heather Medellin, [facility] [address], [place], [address]. tel:[phone] Family History Family Member Type Diagnosis Age At Onset Mother Problem rheumatoid arthritis Maternal grandmother Problem rheumatoid arthritis Immunizations Vaccine Date Status Comments COVID-19 Pfizer administered Note: 2020 ; Source: Other Provider Payers Payer name Insurance type Covered green party ID Jose Alfredo oviedo(s) [facility] [id number] Social History Type Description Quantity Date Captured [...]
--- OUTSIDE RECORDS SUMMARY | 2024-06-08 21:10 | XMS_ITS | Clinical Summary ---
Author Organization [facility] Address [address], [place] [address] Care Team Providers Care Waiter/Waitress Take Out Name Role Phone Huyen Mandujano MD Primary Care Provider [phone] Source Comments You are receiving this document [...] for each transition of care or referral. [facility] Allerg[facility] Active Allergy Reactions Criticality Noted Date [...] Negative (Non Reactive) 12/10/2019 5:59 PM CDT [facility] Comment:Antibodies to HCV no t detected. Does not exclude the possiblity of exposure to HCV. Blood Venipuncture / Unknown 12/10/2019 2:37 PM CDT 12/10/2019 2:37 PM CDT Ayanna Whitley MD LAB_1 [facility] [address] [place], [place] [id number] [place] [address] from Last 3 Months or Most Recently Relevant to Health Maintenance Care Teams Waiter/Waitress Take Out Relationship Specialty Start Date End Date Huyen Mandujano MD [address] [place] [address] PCP - General Obstetrics Gynecology 10/09/19
== END 2024-06-04 16:23 | disposition home or self-care (01) ==
LOC: NFLDREF 06-08 21:08
PROVIDERS: PCP Family Medicine; Referring Provider Family Medicine; Visit Provider Family Medicine
DX: M79.669 Pain in unspecified lower leg (principal)
CPT/HCPCS: 85379

== ENCOUNTER 2024-06-10 10:38 | Emergency (ER) | payer BC, SELFPAY ==
[2024-06-10 10:41] VITALS: BP 124/69; PULSE 80; RESP 16; TEMP 36.5; O2SAT 100; BMI 26.6
--- NOTE | 2024-06-10 10:57 | CRLHL7_ITS ---
For Patients: As a result of the Century Cures Act, medical imaging exams and procedure reports are released immediately into your electronic medical record. You may view this report before your referring provider. If you have questions, please contact your health care provider. INDICATION: Back and pelvic pain, concern for ectopic COMPARISON: None TECHNIQUE: Brown-scale and color Doppler of the gravid uterus and fetus from a transabdominal approach. Brown-scale and color Doppler of the ovaries and adnexa from a transabdominal approach. FINDINGS: Last menstrual period: 04/24/2024 Estimated gestational age: 6 weeks 5 days FIRST TRIMESTER There is an intrauterine gestational sac implant near the fundus. There is a normal yolk sac. An embryo is present with a crown-rump length of 9 mm, which corresponds to a gestational age of 6 weeks 6 days. Embryonic cardiac activity is present, at a rate of 129 bpm. Small perigestational hemorrhage measures 5 x 10 x 5 millimeter. MATERNAL The right ovary measures 4.3 x 2.7 x 3.2 centimeters. There is a 2 x 2 x 2.7 centimeter right ovarian cyst with some peripheral avascular layering debris or retracting clot. Probably a hemorrhagic cyst. The left ovary measures 3.1 x 2.2 x 2.7 cm. There is a 1.5 x 1.7 x 1.8 centimeter corpus luteum cyst. No pelvic free fluid. IMPRESSION: 1. Single intrauterine gestation with an estimated gestational age of 6 weeks 6 days based on a crown-rump length of 9 millimeters. 2. Very small perigestational hemorrhage. 3. Right ovarian hemorrhagic cyst measures 2.7 cm. Dictated by Yun Sanchez MD @ 06/10/2024 12:08:00 PM (Electronically Signed)
--- OUTSIDE RECORDS SUMMARY | 2024-06-10 11:10 | XMS_ITS | Clinical Summary ---
Author Organization [facility] Address [place], [place] [address] Care Team Providers Care Test Designer Name Role Phone Pcp, No Primary Care Provider Unavailabl e Gisell Graves MD Unavailable [phone] Thalia Kenney MD Unavailable [phone] Allergies No known active allergies Medications Medication [...] Comments Blood Pressure 112/70 06/17/2018 2:[address] ROLLER OPERATOR [employer] Pulse 68 08/13/2017 10:[address] ROLLER [employer]PERATOR [employer] Temperature 36.6 ??C (97.8 ??F) 07/07/2017 1:12 AM CS T Respiratory Rate 16 08/13/2017 10:[address] [employer]LLER OPERATOR [employer] Oxygen Saturation 100% 07/07/2017 1:[address] [employer]ER [employer]PERATOR [employer] Inhaled Oxygen Concentration - - Weight 63 kg (139 lb) 06/17/2018 2:[address] [employer]ER [employer]PERATOR [employer] Height 158.8 cm (5' 2.5) 06/17/2018 2:[address] [employer]ER [employer]PERATOR [employer] Body Mass Index 25.02 06/17/2018 2:[address] ROLLER [employer]PERATOR [employer] Plan of Treatment Health Maintenance Due Date [...] Procedure Name Priority Date/Time Associated Diagnosis Comments MEDICAL PARASITOLOGIST THIN PREP PAP SCREEN IMAGED Routine 03/28/2020 1:45 PM CDT from Last 3 Months or Most Recently Relevant to Health Maintenance Results * MEDICAL PARASITOLOGIST THIN PREP PAP SCREEN IMAGED (03/28/2020 1:45 PM CDT) Case Report Gynecologic Cytology Report ? Case: [id number] ? Authorizing Provider: ??Cristina Pritchard ?Collected: ? 03/28/2020 1345 ? Mala, MD ? Ordering Location: ? [facility] ?Received: ?03/30/2020822 ? First Screen: ?Jessica Taylor ? Specimen: ?MEDICAL PARASITOLOGIST ThinPrep Vial Screening, Cervical/Vaginal ? 04/07/2020 1:39 PM CDT [facility] INTERPRETATION/ RESULT NEGATIVE FOR INTRAEPITHELIAL LESION OR MALIGNANCY (NIL) (none) 04/07/2020 1:39 PM CDT [facility] IMEN ADEQUACY Satisfactory for evaluation No endocervical component seen in a patient 04/07/2020 1:39 PM CDT [facility] HPV REQUEST HPV if ASCUS 04/07/2020 1:39 PM CDT [facility] Menstrual Status 04/07/2020 1:39 PM CDT [facility] Additional Information 04/07/2020 1:39 PM CDT [facility] Comment: Interpreted at [facility] - [address], [place] [address] Automated Review Successful 04/07/2020 1:39 PM CDT [facility] Comment:Specimen processed s uccessfully by automated principal clerk typist device, ThinPrep Imaging System, [employer] Note The pap test is a [...] and malignant lesions. 04/07/2020 1:39 PM CDT [facility] Other (Cervical/Vagina l) 03/28/2020 1:45 PM CDT 03/30/2020 8:23 AM CDT Cristina Pritchard MD PATHOLOGY/ CYTOLOGY [facility] [address] [place] [address], [place] from Last 3 Months or Most Recently Relevant to Health Maintenance Care Teams Test Designer Relationship Specialty Start Date End Date Pcp, No . PCP - General 03/21/22 Gisell Graves MD [address] [place], [place] [address] [address] Family Practice 03/21/22 Thalia Kenney MD [address] [address] [place] [address] Rheumatology Rheumatology 09/02/15
--- OUTSIDE RECORDS SUMMARY | 2024-06-10 11:10 | XMS_ITS | Continuity of Care Document ---
Author Organization [facility] Address [address] [place] [address] Phone Care Team Providers Care Contract Agent Name Role Phone Heather Carlos MD Unavailable [...] Wbc Dna Antibody, Single Strand Dna Antibody, [place] Nuclear Antigen Antibodies Advance Directives Directive Yes / No Effective Date File Name No Information Encounters Encounter Description Practice Location Reason(s) For Visit Diagnoses Date Provider Providers Copied on Encounter [facility] , [address], [place], [address], [place] tel:[phone] [facility] No Information 4 Terrance Romero. [facility] [address], [place], [address], [place]. tel:[phone] [facility] , [address], [place], [address], [place] tel:[phone] [facility] No Information 4 Terrance Romero. [facility] [address], [place], [address], [place]. tel:[phone] Office/Outpa tient Visit, Est [facility] , [address], [place], [address], [place] tel:[phone] [facility] , Follow Up of Psoriatic arthritis (chief complaint) Other psoriatic arthropathyO ther manager long term care (current) drug therapy 4 Terrance Romero. [facility] [address], [place], [address], [place]. tel:[phone] Referring Provider: Heather Medellin, [facility] [address], [place], [address]. tel:[phone] Office/Outpa tient Visit, Est [facility] , [address], [place], [address], [place] tel:[phone] [facility] , Follow Up of Psoriatic arthritis (chief complaint) Other psoriatic arthropathyO ther mcfp (current) drug therapy 3 Terrance Romero. [facility] [address], [place], [address], [place]. tel:[phone] Referring Provider: Heather Medellin, [facility] [address], [place], [address]. tel:[phone] Office/Outpa tient Visit, Est [facility] , [address], [place], [address], [place] tel:[phone] [facility] , Follow Up of Psoriatic arthritis (chief complaint) Other psoriatic arthropathyO ther mcfp (current) drug therapy 3 Terrance Romero. [facility] [address], [place], [address], [place]. tel:[phone] Referring Provider: Heather Medellin, [facility] [address], [place], [address]. tel:[phone] Office/Outpa tient Visit, Est [facility] , [address], [place], [address], [place] tel:[phone] [facility] , Follow Up of Rheumatoid arthritis (chief complaint) Other psoriatic arthropathyO ther manager long term care (current) drug therapy 1 Terrance Romero. [facility] [address], [place], [address], [place]. tel:[phone] Referring Provider: Heather Medellin, [facility] [address], [place], [address]. tel:[phone] Office/Outpa tient Visit, Est [facility] , [address], [place], [address], [place] tel:[phone] [facility] , Follow Up of Rheumatoid arthritis (chief complaint) Other psoriatic arthropathyO ther mcfp (current) drug therapy 1 Terrance Romero. [facility] [address], [place], [address], [place]. tel:[phone] Referring Provider: Heather Medellin, [facility] [address], [place], [address]. tel:[phone] Office/Outpa tient Visit, New [facility] , [address], [place], [address], [place] tel:[phone] [facility] , Rheumatoid arthritis (chief complaint) Other psoriatic arthropathyO ther manager long term care (current) drug therapy 1 Terrance Romero. [facility] [address], [place], [address], [place]. tel:[phone] Referring Provider: Heather Medellin, [facility] [address], [place], [address]. tel:[phone] [facility] , [address], [place], [address], [place] tel:[phone] [facility] , No Information 1 Terrance Romero. [facility] [address], [place], [address], [place]. tel:[phone] Referring Provider: Heather Medellin, [facility] [address], [place], [address]. tel:[phone] Family History Family Member Type Diagnosis Age At Onset Mother Problem rheumatoid arthritis Maternal grandmother Problem rheumatoid arthritis Immunizations Vaccine Date Status Comments COVID-19 Pfizer administered Note: 2020 ; Source: Other Provider Payers Payer name Insurance type Covered green party ID Jose Alfredo oviedo(s) [facility] [id number] Social History Type Description Quantity Date Captured [...]
--- OUTSIDE RECORDS SUMMARY | 2024-06-10 11:10 | XMS_ITS | Clinical Summary ---
Author Organization [facility] Address [address], [place] [address] Care Team Providers Care Tab Cutter Name Role Phone Huyen Mandujano MD Primary Care Provider [phone] Source Comments You are receiving this document [...] for each transition of care or referral. [facility] Active Allergy Reactions Criticality Noted Date [...] Negative (Non Reactive) 12/10/2019 5:59 PM CDT [facility] Comment:Antibodies to HCV no t detected. Does not exclude the possiblity of exposure to HCV. Blood Venipuncture / Unknown 12/10/2019 2:37 PM CDT 12/10/2019 2:37 PM CDT Ayanna Whitley MD LAB[facility]1 [facility] [address] [place], [place] [address] [place] [address] from Last 3 Months or Most Recently Relevant to Health Maintenance Care Teams Tab Cutter Relationship Specialty Start Date End Date Huyen Mandujano MD [address] [place] [address] PCP - General Obstetrics Gynecology 10/09/19
--- NOTE | 2024-06-10 11:14 | ED_ITS ---
HPI - General Adult General Date Seen: 06/10/24 Chief complaint: Back Injury/Pain Stated complaint: ob triage sent 6 1/2 week preg Time Seen by Provider: 06/10/24 10:49 Source: patient, RN notes reviewed and old records reviewed Mode of arrival: ambulatory Limitations: no limitations History of Present Illness HPI narrative: Patient is a 29-year-old G4, P2, currently at about 6 and half weeks without prior ultrasound. Previous pregnancies complicated by gestational diabetes for her 2nd . She has had 1 early miscarriage. This is a desired . She has noted over the past few days a little bit of intermittent pelvic discomfort, nothing that she really thought much of. She has not had urinary symptoms, fevers, vaginal bleeding. Has had some nausea, she feels this is related. Denies constipation or diarrhea. Today, she developed some pain in her back that can radiate up around her shoulder blade. It feels reminiscent to her of postoperative pain after she had her gallbladder out. She has had hard time getting comfortable because of it. It is not severe. Denies any medications for pain. She has not had shortness of breath. Her father is a physician, and she did ask him to check a D-dimer recently because she had a little soreness in her leg, D-dimer was negative. She has not had a cough. Does not smoke or drink. She is a nurse here in Labor and delivery. Related Data Home Medications ?Medication ?Instructions ?Recorded ?Confirmed adalimumab 40 mg/0.4 mL See Rx Instructions subcut .COMPLEX 01/25/22 06/10/24 subcutaneous pen kit Previous Rx's ?Medication ?Instructions ?Recorded sertraline 100 mg tablet 100 mg PO QDAY #90 tabs 12/18/23 Allergies Allergy/AdvReac Type Severity Reaction Status Date / Time No Known Drug Allergies Allergy Verified 01/24/24 08:22 Review of Systems Status of ROS: Reports: 10 or more systems reviewed and unremarkable except as noted in History and below [facility] Medical History PCOS (polycystic ovarian syndrome) ?E28.2 - Polycystic ovarian syndrome (ICD-10) Pelvic floor weakness ?N81.89 - Other female genital prolapse (ICD-10) Rheumatoid arthritis (2015) ?M06.9 - Rheumatoid arthritis, unspecified (ICD-10) Plaque psoriasis (2016) ?L40.0 - Psoriasis vulgaris (ICD-10) History of gestational diabetes ?Z86.32 - Personal history of gestational diabetes (ICD-10) Surgical History Normal spontaneous vaginal delivery ?O80 - Encounter for full-term uncomplicated delivery (ICD-10) History of cholecystectomy ?Z90.49 - Acquired absence of other specified parts of digestive tract (ICD- 10) H/O oral surgery ?Z98.890 - Other specified postprocedural states (ICD-10) Family History Mother Rheumatoid arthritis Father High blood pressure High cholesterol Diabetes Social History Narrative: RN working in our Center. . Nonsmoker. Alcohol use: 1-2 drinks per week Smoking Status: Never smoker How often do you have a drink containing alcohol: never AUDIT-C Alcohol total score: 0 Non-prescribed substance use: denies use Caffeine: No Are you using contraception or practicing any form of control: No Exam Narrative: Exam Narrative: Vital signs as noted above. In general, an alert, well-appearing patient. Breathing easily. Head: Normocephalic, atraumatic. Eyes: Pupils are equal reactive. Extraocular movements are full. Conjunctivae are normal. ENT: Mucous membranes are moist. Neck: Supple without lymphadenopathy. Heart: Regular rate and rhythm. No murmur or rub. Lungs: Clear bilaterally. No increased work of breathing, crackles or wheezes. No CVA tenderness. Abdomen: Soft and nontender. No organomegaly. Back: She does have some palpable muscle spasm in the periscapular and trapezius areas on the right. Extremities: Well perfused. No edema. No calf tenderness. Pulses intact. Neurologic: Patient is alert and oriented to person and place. Speech is fluent. Face is symmetric. Moves all extremities equally. Affect: Normal. Skin: Warm and dry. Well perfused. Const: Vital Signs, click to edit/add: Vital Signs - 24 hr 06/10/24 10:41 06/10/24 12:21 Temperature 97.7 F Pulse Rate [Pulse Oximeter] 80 68 Respiratory Rate 16 16 Blood Pressure [Ri ght Upper Arm] 124/69 105/56 L Pulse Oximetry 100 98 Oxygen Delivery Me thod Room Air Room Air Documenting provider has reviewed patient's vital signs: yes Course Course ED Course: Diagnostic considerations would include ectopic , early miscarriage, UTI, ovarian cyst, appendicitis, kidney stone, musculoskeletal back pain. Symptoms really do not seem to be pulmonary in nature, this back pain she feels is referred rather than a primary pulmonary issue. Will get an ultrasound to evaluate viability, UA, quantitative hCG. She is Rh positive by her report. Urinalysis is normal. Quant HCG is pending, but ultrasound read by Radiology as showing an IUP with cardiac activity at a rate of 129. She does have probably a hemorrhagic cyst on the right,. She does not have free pelvic fluid. There is a small perigestational hemorrhage of 0.5 cm by 1 cm. I reviewed all this with the patient. Will give her some Tylenol here, she can use Tylenol, ice or heat if helpful. Case reviewed with Dr. Herbert as well. Patient will follow-up as planned. Return any time for severe or worsening symptoms. Vital Signs Vital signs: Initial Vital Signs Temperature 97.7 F 06/10/24 10:41 Temperature Source Temporal Artery Scan 06/10/24 10:41 Pulse Rate 80 06/10/24 10:41 Respiratory Rate 16 06/10/24 10:41 Blood Pressure 124/69 06/10/24 10:41 Blood Pressure Mean 87 06/10/24 10:41 Blood Pressure Position Sitting 06/10/24 10:41 Pulse Oximetry 100 06/10/24 10:41 Oxygen Delivery Method Room Air 06/10/24 10:41 Vital Signs Temperature 97.7 F 06/10/24 10:41 Pulse Rate 80 06/10/24 10:41 Respiratory Rate 16 06/10/24 10:41 Blood Pressure 124/69 06/10/24 10:41 Pulse Oximetry 100 06/10/24 10:41 Oxygen Delivery Method Room Air 06/10/24 10:41 Temperature 97.7 F 06/10/24 10:41 Pulse Rate 68 06/10/24 12:21 Respiratory Rate 16 06/10/24 12:21 Blood Pressure 105/56 L 06/10/24 12:21 Pulse Oximetry 98 06/10/24 12:21 Oxygen Delivery Method Room Air 06/10/24 12:21 Medications Administered Medications: Discontinued Medications Generic Name Dose Route Start Last Admin Trade Name Chapis PRN Reason Stop Dose Admin Acetaminophen 1,000 mg 06/10/24 12:20 06/10/24 12:26 Acetaminophen 500 Mg Tablet PO 06/10/24 12:21 1,000 mg ONCE ONE Administration Medical Decision Making Lab Data Labs: Lab Results 06/10/24 06/10/24 Range/Units 11:05 11:10 HCG, Quant 05835.00 mIU/mL Urine Color Yellow (Yellow) Urine Appearance Clear (Clear) Urine pH 7.5 (5.0-8.5) Ur Specific [place] 1.020 (1.000-1.030) Urine Protein Negative (Negative) Urine Glucose (UA) Negative (Negative) Urine Ketones Negative (Negative) Urine Blood Negative (Negative) Urine Nitrite Negative (Negative) Urine Bilirubin Negative (Negative) Urine Urobilinogen 0.2 (0.2-1.0) Ur Leukocyte Esterase Negative (Negative) Urine RBC 0-2 (0-2) Urine WBC 0-2 (0-5) Ur Squamous Epith Cells None (None-Few) Urine Bacteria None (None) Imaging Data US - abdomen: Attestation: I have reviewed the pertinent imaging results. Radiologist's impression: Patient: Cheryl Blakely MR#: [id number] : 04/14/1945 Acct:[id number] Loc: ED Service Date: 06/10/[address]: Ordering Physician: Meghann Sood M.D. Date of Service: 06/10/24 Procedure(s): CT head/brain wo con Accession Number(s): [id number] cc: Meghann Sood M.D.; Karen Bustillo M.D.~ For Patients: As a result of the Century Cures Act, medical imaging exams and procedure reports are released immediately into your electronic medical record. You may view this report before your referring provider. If you have questions, please contact your health care provider. INDICATION: Unable to remember things COMPARISON: 06/22/2023 TECHNIQUE: CT of the brain / head without intravenous contrast. Multiplanar axial, coronal, and sagittal reformats were reconstructed. FINDINGS: No intracranial hemorrhage. Age-related parenchymal volume loss. No acute or subacute cortically based infarct. 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 Scattered white matter hypodensities may be related to chronic microvascular ischemia. No mass or mass effect. Normal ventricles. No skull fractures. No worrisome focal bone lesion. IMPRESSION: No acute intracranial findings. Please note that all CT scans at this facility use dose modulation, iterative reconstruction, and/or weight-based dosing when appropriate to reduce radiation dose to as low as reasonably achievable. Dictated by Yun Sanchez MD @ 06/10/2024 11:47:58 AM Discharge Plan Discharge Clinical Impression: Hemorrhagic cyst of right ovary, Intrauterine normal Patient Disposition: Home, Self-Care Condition: Stable Instructions: Ovarian Cyst (ED) Additional Instructions: Tylenol, ice and/or heat may be helpful as well. Follow-up as planned with OB. Return to the ER at any time for severe uncontrolled pain, fevers, cough, shortness of breath, significant bleeding or other worsening. Prescriptions: No Action adalimumab 40 mg/0.4 mL pen injector kit See Rx Instructions subcut .COMPLEX Rx Instructions: inject one - 40 mg/0.4 mL pen every 2 weeks subcut sertraline 100 mg tablet 100 mg PO QDAY Qty: 90 3RF Follow Up/Referrals: Igor Guadarrama MD [Primary Care Provider] - Stand Alone Forms: Meal Ticket Info Instructions
[2024-06-10 11:41] LABS: Appearance Urine Clear (Clear); Bilirubin Urine Negative (Negative); Blood Urine Negative (Negative); Color Urine Yellow (Yellow); Glucose Urine Negative (Negative); Ketones Urine Negative (Negative); Leukocyte Esterase Urine Negative (Negative); Nitrite Urine Negative (Negative); Protein Urine Negative (Negative); Urobilinogen Urine 0.2 (0.2-1.0); pH Urine 7.5 (5.0-8.5)
[2024-06-10 11:50] LABS: RBC Urine 0-2 (0-2); WBC Urine 0-2 (0-5)
[2024-06-10 12:21] VITALS: BP 105/56; PULSE 68; RESP 16; O2SAT 98
[2024-06-10] MEDS: ACETAMINOPHEN 500 MG TABLET 1000 MG PO (12:26)
== END 2024-06-10 12:29 | disposition home or self-care (01) ==
PROVIDERS: Emergency Provider Emergency Medicine; PCP Family Medicine
DX: N83.201 Unspecified ovarian cyst, right side (principal); Z3A.01 Less than 8 weeks gestation of pregnancy
CPT/HCPCS: 36415; 76817; 81001; 84702; 99284; A9270

== ENCOUNTER 2024-06-19 10:34 | Outpatient (CLI) | payer BC, SELFPAY ==
--- OUTSIDE RECORDS SUMMARY | 2024-06-19 10:37 | XMS_ITS | Clinical Summary ---
Author Organization [facility] Address [place], [place] [address] Care Team Providers Care Boat Patcher Plastic Name Role Phone Pcp, No Primary Care Provider Unavailabl e Gisell Graves MD Unavailable [phone] Thalia Kenney MD Unavailable [phone] Allergies No known active allergies Medications Medication [...] Comments Blood Pressure 112/70 06/17/2018 2:01 PM [facility] Pulse 68 08/13/2017 10:27 AM [facility] Temperature 36.6 C (97.8 F) 07/07/2017 1:12 AM [facility] Respiratory Rate 16 08/13/2017 10:27 AM [facility] Oxygen Saturation 100% 07/07/2017 1:12 AM [facility] Inhaled Oxygen Concentration - - Weight 63 kg (139 lb) 06/17/2018 2:01 PM [facility] Height 158.8 cm (5' 2.5) 06/17/2018 2:01 PM [facility] Body Mass Index 25.02 06/17/2018 2:01 PM [facility] Plan of Treatment Health Maintenance Due Date [...] Procedure Name Priority Date/Time Associated Diagnosis Comments WINE SPECIALIST THIN PREP PAP SCREEN IMAGED Routine 03/28/2020 1:45 PM CDT from Last 3 Months or Most Recently Relevant to Health Maintenance Results * WINE SPECIALIST THIN PREP PAP SCREEN IMAGED (03/28/2020 1:45 PM CDT) Case Report Gynecologic Cytology Report Case: [id number] Authorizing Provider: Cristina Pritchard Collected: 03/28/2020 1345 MD Mala Ordering Location: [facility] Received: 03/30/2020822 First Screen: Jessica Taylor Specimen: WINE SPECIALIST ThinPrep Vial Screening, Cervical/Vaginal 04/07/2020 1:39 PM CDT [facility] INTERPRETATION/ RESULT NEGATIVE FOR INTRAEPITHELIAL LESION OR MALIGNANCY (NIL) (none) 04/07/2020 1:39 PM CDT [facility] IMEN ADEQUACY Satisfactory for evaluation No endocervical component seen in a patient 04/07/2020 1:39 PM CDT [facility] HPV REQUEST HPV if ASCUS 04/07/2020 1:39 PM CDT [facility] Menstrual Status 04/07/2020 1:39 PM CDT [facility] Additional Information 04/07/2020 1:39 PM CDT [facility] Comment: [facility] - [address] [address] Automated Review Successful 04/07/2020 1:39 PM CDT [facility] Comment:Specimen processed s uccessfully by automated cadworx piping designer device, ThinPrep Imaging System, [employer] Note The pap test is a [...] and malignant lesions. 04/07/2020 1:39 PM CDT [facility]ORY Other (Cervical/Vagina l) 03/28/2020 1:45 PM CDT 03/30/2020 8:23 AM CDT Cristina Pritchard MD PATHOLOGY/ CYTOLOGY [facility] [address] [place] [address], from Last 3 Months or Most Recently Relevant to Health Maintenance Care Teams Boat Patcher Plastic Relationship Specialty Start Date End Date Pcp, No . PCP - General 03/21/22 Gisell Graves MD [address] [facility] [address] [place] [address] Family Practice 03/21/22 Thalia Kenney MD [address] [facility] [address] [place] [address] Rheumatology Rheumatology 09/02/15
--- OUTSIDE RECORDS SUMMARY | 2024-06-19 10:37 | XMS_ITS | Continuity of Care Document ---
Author Organization [facility] Address [address] [place] [address] Phone Care Team Providers Care Boss Dyer Name Role Phone Heather Carlos MD Unavailable [...] Wbc Dna Antibody, Single Strand Dna Antibody, [place] Nuclear Antigen Antibodies Advance Directives Directive Yes / No Effective Date File Name No Information Encounters Encounter Description Practice Location Reason(s) For Visit Diagnoses Date Provider Providers Copied on Encounter [facility] , [address], [place], [address], [place] tel:[phone] [facility] No Information 4 Terrance Romero. [facility] [address], [place], [address], [place]. tel:[phone] [facility] , [address], [place], [address], [place] tel:[phone] [facility] [place] No Information 4 Terrance Romero. [facility] [address], [place], [address], [place]. tel:[phone] Office/Outpa tient Visit, Est [facility] , [address], [place], [address], [place] tel:[phone] [facility] , Follow Up of Psoriatic arthritis (chief complaint) Other psoriatic arthropathyO ther predatory animal exterminator (current) drug therapy 4 Terrance Romero. [facility] [address], [place], [address], [place]. tel:[phone] Referring Provider: Heather Medellin, [facility] [address], [place], [address]. tel:[phone] Office/Outpa tient Visit, Est [facility] , [address], [place], [address], [place] tel:[phone] [facility] , Follow Up of Psoriatic arthritis (chief complaint) Other psoriatic arthropathyO ther fci (current) drug therapy 3 Terrance Romero. [facility] [address], [place], [address], [place]. tel:[phone] Referring Provider: Heather Medellin, [facility] [address], [place], [address]. tel:[phone] Office/Outpa tient Visit, Est [facility] , [address], [place], [address], [place] tel:[phone] [facility] , Follow Up of Psoriatic arthritis (chief complaint) Other psoriatic arthropathyO ther fci (current) drug therapy 3 Terrance Romero. [facility] [address], [place], [address], [place]. tel:[phone] Referring Provider: Heather Medellin, [facility] [address], [place], [address]. tel:[phone] Office/Outpa tient Visit, Est [facility] , [address], [place], [address], [place] tel:[phone] [facility] , Follow Up of Rheumatoid arthritis (chief complaint) Other psoriatic arthropathyO ther predatory animal exterminator (current) drug therapy 1 Terrance Romero. [facility] [address], [place], [address], [place]. tel:[phone] Referring Provider: Heather Medellin, [facility] [address], [place], [address]. tel:[phone] Office/Outpa tient Visit, Est [facility] , [address], [place], [address], [place] tel:[phone] [facility] , Follow Up of Rheumatoid arthritis (chief complaint) Other psoriatic arthropathyO ther fci (current) drug therapy 1 Terrance Romero. [facility] [address], [place], [address], [place]. tel:[phone] Referring Provider: Heather Medellin, [facility] [address], [place], [address]. tel:[phone] Office/Outpa tient Visit, New [facility] , [address], [place], [address], [place] tel:[phone] [facility] , Rheumatoid arthritis (chief complaint) Other psoriatic arthropathyO ther predatory animal exterminator (current) drug therapy 1 Terrance Romero. [facility] [address], [place], [address], [place]. tel:[phone] Referring Provider: Heather Medellin, [facility] [address], [place], [address]. tel:[phone] [facility] , [address], [place], [address], [place] tel:[phone] [facility] , No Information 1 Terrance Romero. [facility] [address], [place], [address], [place]. tel:[phone] Referring Provider: Heather Medellin, [facility] [address], [place], [address]. tel:[phone] Family History Family Member Type Diagnosis Age At Onset Mother Problem rheumatoid arthritis Maternal grandmother Problem rheumatoid arthritis Immunizations Vaccine Date Status Comments COVID-19 Pfizer administered Note: 2020 ; Source: Other Provider Payers Payer name Insurance type Covered alliance party ID Jose Alfredo oviedo(s) [facility] [id number] Social History Type Description Quantity Date Captured [...]
--- OUTSIDE RECORDS SUMMARY | 2024-06-19 10:37 | XMS_ITS | Clinical Summary ---
Author Organization [facility] Address [address], [place] [address] Care Team Providers Care Furniture Associate Name Role Phone Huyen Mandujano MD Primary [...] for each transition of care or referral. [facility] Allerg[facility] Active Allergy Reactions Criticality Noted Date [...] Negative (Non Reactive) 12/10/2019 5:59 PM CDT [facility] Comment:Antibodies to HCV no t detected. Does not exclude the possiblity of exposure to HCV. Blood Venipuncture / Unknown 12/10/2019 2:37 PM CDT 12/10/2019 2:37 PM CDT Ayanna Whitley MD LAB_1 [facility] [address] [place], [place] [id number] [place] [address] from Last 3 Months or Most Recently Relevant to Health Maintenance Care Teams Furniture Associate Relationship Specialty Start Date End Date Huyen Mandujano MD [address] [place] [address] PCP - General Obstetrics Gynecology 10/09/19
--- NOTE | 2024-06-19 10:45 | CRLHL7_ITS ---
For Patients: As a result of the Century Cures Act, medical imaging exams and procedure reports are released immediately into your electronic medical record. You may view this report before your referring provider. If you have questions, please contact your health care provider. INDICATION: Follow-up viability COMPARISON: 06/10/2024 TECHNIQUE: Real-time greenwood-scale imaging of the pelvis was performed. FINDINGS: Sonographic imaging demonstrates a single living intrauterine gestation. The embryo demonstrates a regular cardiac rate measuring 173 beats per minute. The embryo`s crown-rump length measurement of 1.7 cm corresponds to a gestational age of 8 weeks 1 day with a sonographic due date of 01/28/2025. There is a normal-appearing yolk sac. There are no gross abnormalities noted within the embryo at this early state of development. The gestational sac has a normal appearance. There is a right-sided perigestational hemorrhage measuring 1.6 x 0.6 x 0.5 cm. The amount of fluid within the sac appears appropriate for gestational age. The cervix is closed. The myometrium appears normal. Corpus luteal cyst left ovary measuring 2.5 x 1.9 x 1.8 cm. Hemorrhagic right ovarian cyst measuring 2.4 x 2.2 x 2.2 cm. There are no suspicious fluid collections noted in the cul-de-sac. IMPRESSION: Single living intrauterine with sonographic gestational age is 8 weeks 1 day and sonographic due date 01/28/2025. 2.4 x 2.2 x 2.2 cm hemorrhagic right ovarian cyst. 2.5 x 1.9 x 1.8 cm corpus luteal cyst left ovary. Small right-sided subchorionic hemorrhage measures 1.6 x 0.6 x 0.5 cm. Dictated by Igor Gregg MD @ 06/19/2024 12:47:47 PM (Electronically Signed)
== END 2024-06-19 10:35 | disposition home or self-care (01) ==
LOC: US 10:34
PROVIDERS: PCP Family Medicine; Visit Provider Obstetrics & Gynecology
DX: Z34.91 Encounter for supervision of normal pregnancy, unspecified, first trimester (principal); Z3A.08 8 weeks gestation of pregnancy
CPT/HCPCS: 76817

== ENCOUNTER 2024-06-19 11:38 | Outpatient (CLI) | payer BC, SELFPAY ==
--- OUTSIDE RECORDS SUMMARY | 2024-06-19 11:41 | XMS_ITS | Clinical Summary ---
Author Organization [facility] Address [address], [place] [address] Care Team Providers Care Banking Services Advisor Name Role Phone Huyen Mandujano MD Primary [...] for each transition of care or referral. [facility] Allergies Active Allergy Reactions Criticality Noted Date [...] Results * [facility] - Hepatitis C Virus [place] with Reflex In-House (12/10/2019 2:37 PM CDT) Hepatitis C Antibody Negative (Non Reactive) Negative (Non Reactive) 12/10/2019 5:59 PM CDT [facility] Comment:Antibodies to HCV no t detected. Does not exclude the possiblity of exposure to HCV. Blood Venipuncture / Unknown 12/10/2019 2:37 PM CDT 12/10/2019 2:37 PM CDT Ayanna Whitley MD LAB_1 [facility] [address] [place], [place] [id number] [place] [address] from Last 3 Months or Most Recently Relevant to Health Maintenance Care Teams Banking Services Advisor Relationship Specialty Start Date End Date Huyen Mandujano MD [address] [place] [address] PCP - General Obstetrics Gynecology 10/09/19
--- OUTSIDE RECORDS SUMMARY | 2024-06-19 11:42 | XMS_ITS | Continuity of Care Document ---
Author Organization [facility] Address [address] [place] [address] Phone Care Team Providers Care Weaving Professor Name Role Phone Heather Carlos MD Unavailable [...] Wbc Dna Antibody, Single Strand Dna Antibody, Ramona Nuclear Antigen Antibodies Advance Directives Directive Yes / No Effective Date File Name No Information Encounters Encounter Description Practice Location Reason(s) For Visit Diagnoses Date Provider Providers Copied on Encounter [facility] , [address], [place], [address], [place] tel:[phone] [facility] No Information 4 Terrance Romero. [facility] [address], [place], [address], [place]. tel:[phone] [facility] , [address], [place], [address], [place] tel:[phone] [facility] No Information 4 Terrance Romero. [facility] [address], [place], [address], [place]. tel:[phone] Office/Outpa tient Visit, Est [facility] , [address], [place], [address], [place] tel:[phone] [facility] , Follow Up of Psoriatic arthritis (chief complaint) Other psoriatic arthropathyO ther meterman (current) drug therapy 4 Terrance Romero. [facility] [address], [place], [address], [place]. tel:[phone] Referring Provider: Heather Medellin, [facility] [address], [place], [address]. tel:[phone] Office/Outpa tient Visit, Est [facility] , [address], [place], [address], [place] tel:[phone] [facility] , Follow Up of Psoriatic arthritis (chief complaint) Other psoriatic arthropathyO ther shelter (current) drug therapy 3 Terrance Romero. [facility] [address], [place], [address], [place]. tel:[phone] Referring Provider: Heather Medellin, [facility] [address], [place], [address]. tel:[phone] Office/Outpa tient Visit, Est [facility] , [address], [place], [address], [place] tel:[phone] [facility] , Follow Up of Psoriatic arthritis (chief complaint) Other psoriatic arthropathyO ther shelter (current) drug therapy 3 Terrance Romero. [facility] [address], [place], [address], [place]. tel:[phone] Referring Provider: Heather Medellin, [facility] [address], [place], [address]. tel:[phone] Office/Outpa tient Visit, Est [facility] , [address], [place], [address], [place] tel:[phone] [facility] , Follow Up of Rheumatoid arthritis (chief complaint) Other psoriatic arthropathyO ther meterman (current) drug therapy 1 Terrance Romero. [facility] [address], [place], [address], [place]. tel:[phone] Referring Provider: Heather Medellin, [facility] [address], [place], [address]. tel:[phone] Office/Outpa tient Visit, Est [facility] , [address], [place], [address], [place] tel:[phone] [facility] , Follow Up of Rheumatoid arthritis (chief complaint) Other psoriatic arthropathyO ther shelter (current) drug therapy 1 Terrance Romero. [facility] [address], [place], [address], [place]. tel:[phone] Referring Provider: Heahter Medellin, [facility] [address], [place], [address]. tel:[phone] Office/Outpa tient Visit, New [facility] , [address], [place], [address], [place] tel:[phone] [facility] , Rheumatoid arthritis (chief complaint) Other psoriatic arthropathyO ther meterman (current) drug therapy 1 Terrance Romero. [facility] [address], [place], [address], [place]. tel:[phone] Referring Provider: Heather Medellin, [facility] [address], [place], [address]. tel:[phone] [facility] , [address], [place], [address], [place] tel:[phone] [facility] , No Information 1 Terrance Romero. [facility] [address], [place], [address], [place]. tel:[phone] Referring Provider: Heather Medellin, [facility] [address], [place], [address]. tel:[phone] Family History Family Member Type Diagnosis Age At Onset Mother Problem rheumatoid arthritis Maternal grandmother Problem rheumatoid arthritis Immunizations Vaccine Date Status Comments COVID-19 Pfizer administered Note: 2020 ; Source: Other Provider Payers Payer name Insurance type Covered green party ID Jose Alfredo oviedo(s) [facility] [id number] Social History Type Description Quantity Date Captured [...]
--- OUTSIDE RECORDS SUMMARY | 2024-06-19 11:42 | XMS_ITS | Clinical Summary ---
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 Temperature 36.6 C (97.8 F) 07/07/2017 1:12 AM LANDSCAPE LABORER Respiratory Rate 16 08/13/2017 10:27 AM LANDSCAPE LABORER Oxygen Saturation 100% 07/07/2017 1:12 AM LANDSCAPE LABORER Inhaled Oxygen Concentration - - Weight 63 kg (139 lb) 06/17/2018 2:01 PM LANDSCAPE LABORER Height 158.8 cm (5' 2.5) 06/17/2018 2:01 PM [employer]ANDSCAPE LABORER Body Mass Index 25.02 06/17/2018 2:01 PM LANDSCAPE LABORER Plan of Treatment Health Maintenance Due Date [...] Procedure Name Priority Date/Time Associated Diagnosis Comments BED TEACHER THIN PREP PAP SCREEN IMAGED Routine 03/28/2020 1:45 PM CDT from Last 3 Months or Most Recently Relevant to Health Maintenance Results * BED TEACHER THIN PREP PAP SCREEN IMAGED (03/28/2020 1:45 PM CDT) Case Report Gynecologic Cytology Report Case: [id number] Authorizing Provider: Cristina Pritchard Collected: 03/28/2020 1345 MD Mala Ordering Location: [facility] Received: 03/30/2020822 First Screen: Jessica Taylor Specimen: BED TEACHER ThinPrep Vial Screening, Cervical/Vaginal 04/07/2020 1:39 PM [facility]T [facility] INTERPRETATION/ RESULT NEGATIVE FOR INTRAEPITHELIAL LESION OR MALIGNANCY (NIL) (none) 04/07/2020 1:39 PM CDT [facility] [employer] [facility] IMEN ADEQUACY Satisfactory for evaluation No endocervical component seen in a patient 04/07/2020 1:39 PM CDT [facility] [employer] [facility] HPV REQUEST HPV if ASCUS 04/07/2020 1:39 PM CDT [facility] [employer] [facility] Menstrual Status 04/07/2020 1:39 PM CDT [facility] [employer] [facility] Additional Information 04/07/2020 1:39 PM CDT [facility] [employer] [facility] Comment[facility] Central Laboratory - [address], [place] [address] Automated Review Successful 04/07/2020 1:39 PM CDT [facility] [employer] [facility] Comment:Specimen processed s uccessfully by automated rf test engineer device, ThinPrep Imaging System, [employer] Note The pap test is a [...] and malignant lesions. 04/07/2020 1:39 PM CDT [facility] [employer] LABORATORY-C ENTRAL LABORATORY Other (Cervical/Vagina l) 03/28/2020 1:45 PM CDT 03/30/2020 8:23 AM CDT Cristina Pritchard MD PATHOLOGY/ CYTOLOGY [facility] LAB[facility]-CENTRAL LABORATORY [address] [place] [address], from Last 3 Months or Most Recently Relevant to Health Maintenance Care Teams Hoop Flaring Machine Operator Helper Relationship Specialty Start Date End Date Pcp, No . PCP - General 03/21/22 Gisell Graves MD [address] [facility] [address] [place] [address] Family Practice 03/21/22 Thalia Kenney MD [address] [facility] [address] [place] [address] Rheumatology Rheumatology 09/02/15
[2024-06-19 20:06] LABS: Chlamydia DNA Amplified* NOT DETECTED (No Detected); GC DNA Amplified* NOT DETECTED (No Detected)
== END 2024-06-19 11:39 | disposition home or self-care (01) ==
PROVIDERS: PCP Family Medicine; Visit Provider Obstetrics & Gynecology
DX: Z34.01 Encounter for supervision of normal first pregnancy, first trimester (principal); Z3A.08 8 weeks gestation of pregnancy
CPT/HCPCS: 83021; 86235; 86592; 86703; 86704; 86706; 86762; 86787; 86803; 86850; 86900; 86901; 87086; 87340; 87491; 87591

== ENCOUNTER 2024-09-16 10:33 | Outpatient (CLI) | payer BC, SELFPAY | END 2024-09-16 10:34 | disposition home or self-care (01) | LOC: US 10:33 | PROVIDERS: PCP Family Medicine; Visit Provider Obstetrics & Gynecology | DX: O26.892 Other specified pregnancy related conditions, second trimester (principal); M06.9 Rheumatoid arthritis, unspecified; Z3A.20 20 weeks gestation of pregnancy | CPT/HCPCS: 76811 ==

== ENCOUNTER 2024-10-12 07:15 | Outpatient (CLI) | payer BC, SELFPAY ==
--- NOTE | 2024-10-12 07:15 | CRLHL7_ITS ---
For Patients: As a result of the Century Cures Act, medical imaging exams and procedure reports are released immediately into your electronic medical record. You may view this report before your referring provider. If you have questions, please contact your health care provider. INDICATION: Growth evaluation TECHNIQUE: Ultrasound OB pelvis transabdominal. Real-time greenwood-scale imaging of the fetus was performed as well as color Doppler and spectral Doppler analysis of the umbilical artery. COMPARISON: Ob ultrasound 09/16/2024. FINDINGS: Valencia intrauterine . heart rate: 129 beats per minute. Presentation: Cephalic. Placenta: Anterior. Amniotic fluid deepest pocket: 5.7 cm. The following biometric measurements were obtained: Biparietal diameter: 96th percentile, previously 92.4. Head circumference: 91st percentile, previously 90.5. Abdominal circumference: 88th percentile, previously 79.7. Femur length: 29th percentile, previously 71.9. Ultrasound age: 25 weeks, 5 days. LMP age: 24 weeks, 3 days. KARINA by LMP: 01/29/2025. EFW: 814 Grams, 86 %. IMPRESSION.: Valencia intrauterine in cephalic presentation. Estimated gestational age of 24 weeks, 3 days by LMP concordant with biometry. Estimated weight of 814 grams, which is the 86th percentile. There has been interval growth compared to prior. Biparietal diameter is now at 96th percentile and head circumference at the 91st percentile, which are large for gestational age. Normal amniotic fluid. Anterior placenta. Dictated by Ruthann Riojas MD @ 10/12/2024 9:17:13 AM (Electronically Signed)
== END 2024-10-12 07:16 | disposition home or self-care (01) ==
LOC: US 07:15
PROVIDERS: PCP Family Medicine; Visit Provider Obstetrics & Gynecology
DX: Z34.92 Encounter for supervision of normal pregnancy, unspecified, second trimester (principal); Z3A.24 24 weeks gestation of pregnancy
CPT/HCPCS: 76816

== ENCOUNTER 2024-11-10 08:02 | Outpatient (CLI) | payer BC, SELFPAY ==
--- NOTE | 2024-11-10 08:15 | CRLHL7_ITS ---
For Patients: As a result of the Century Cures Act, medical imaging exams and procedure reports are released immediately into your electronic medical record. You may view this report before your referring provider. If you have questions, please contact your health care provider. OBSTETRICAL ULTRASOUND ??? FOLLOW-UP, 11/10/2024 INDICATION: Rheumatoid arthritis. Growth. CLINICAL HISTORY: KARINA by LMP: 01/29/2025 Gestational Age: 28 weeks 4 days COMPARISON: 10/12/2024, 09/16/2024, 06/19/2024 TECHNIQUE: Real-time greenwood-scale imaging of the fetus was performed transabdominal. FINDINGS: Fetus: Single Cervix: Not visualized positioning: Vertex Amniotic Fluid: MARILU: 25.6 cm 9.3 cm SDP Placenta technique: Transabdominal Placenta position: Anterior heart rate: 137 bpm BIOMETRY: BPD: 8.3 cm, 33 weeks 3 days, greater than 97% HC: 30.2 cm, 33 weeks 4 days, greater than 97% AC: 27.5 cm, 31 weeks 4 days, greater than 97% FL: 5.3 cm, 28 weeks 1 day, 24% FL/AC Ratio: 19.29% HC/AC ratio: 1.10 EFW: 1650 grams; 3 lbs. 10 oz. age by this ultrasound: 31 weeks 5 days KARINA by this ultrasound: 01/07/2025 Percentile by KARINA: greater than 97% IMPRESSION: 1. Sonographic gestational age 31 weeks 5 days and sonographic due date 01/07/2025. Sonographic age is 22 days ahead of the clinical age. 2. Estimated weight is greater than 97th percentile. BPD, HC and AC are all greater than 97th percentile. 3. MARILU 25.6 cm. Single deepest pocket 9.3 cm. IGOR OGLESBY M.D. Diagnostic Radiologist [email or web address] Transcribed: 4:[address]/Dictated by: Igor Oglesby MD @ 11/10/2024 3:15:00 PM (Electronically Signed)
== END 2024-11-10 08:03 | disposition home or self-care (01) ==
LOC: US 08:02
PROVIDERS: PCP Family Medicine; Visit Provider Obstetrics & Gynecology
DX: Z34.93 Encounter for supervision of normal pregnancy, unspecified, third trimester (principal); O40.3XX0 Polyhydramnios, third trimester, not applicable or unspecified; O36.63X0 Maternal care for excessive fetal growth, third trimester, not applicable or unspecified; M06.9 Rheumatoid arthritis, unspecified; Z3A.28 28 weeks gestation of pregnancy
CPT/HCPCS: 76816; 86592

== ENCOUNTER 2024-11-20 07:10 | Outpatient (CLI) | payer BC, SELFPAY ==
--- NOTE | 2024-11-20 07:15 | CRLHL7_ITS ---
For Patients: As a result of the Century Cures Act, medical imaging exams and procedure reports are released immediately into your electronic medical record. You may view this report before your referring provider. If you have questions, please contact your health care provider. OB ULTRASOUND BIOPHYSICAL PROFILE, 11/20/2024 CLINICAL HISTORY: Polyhydramnios. COMPARISON: 11/10/2024, 10/12/2024, 09/16/2024. TECHNIQUE: Real time greenwood scale imaging of the fetus was performed transabdominal. FINDINGS: KARINA by LMP/US: 01/29/2025. GA: 30 weeks 0 days. CERVIX: Not visualized. POSITIONING: Vertex. AMNIOTIC FLUID: 23.5 MARILU. 84 cm SDP. BIOPHYSICAL PROFILE: Gross Body Movements: 2 Tone: 2 Respiratory Activity: 2 Amniotic Fluid: 2 Total Score: 8/8 PLACENTA: Technique: TA. Placenta Position: Anterior. DOPPLERS: Heart Rate: 145 bpm. IMPRESSION: 1. Biophysical profile score of 8/8. 2. Amniotic fluid single deepest pocket 8.4 cm. MARILU 23.5 cm. Igor Gregg M.D. Diagnostic Radiologist [email or web address] Transcribed: 11:18 am DW/Dictated by: Igor Gregg MD @ 11/20/2024 10:09:00 AM (Electronically Signed)
== END 2024-11-20 07:11 | disposition home or self-care (01) ==
LOC: US 07:11
PROVIDERS: PCP Family Medicine; Visit Provider Obstetrics & Gynecology
DX: O40.3XX0 Polyhydramnios, third trimester, not applicable or unspecified (principal); Z3A.30 30 weeks gestation of pregnancy
CPT/HCPCS: 76819

== ENCOUNTER 2024-11-30 03:10 | Outpatient (CLI) | payer BC, SELFPAY ==
[2024-11-30] MEDS: BETAMETHASONE SOD PHOS/ACETATE 6 MG/ML ML 12 MG IM (03:53)
[2024-11-30] MEDS: NIFEdipine 10 MG CAPSULE 30 MG PO (03:54)
[2024-11-30 04:00] VITALS: BP 124/67; PULSE 67
[2024-11-30 04:24] VITALS: BP 105/50; PULSE 94
--- NOTE | 2024-11-30 16:56 | PC.OBNST ---
NST Note NST Note Start: 11/30/24 05:40 Freq: ONCE Status: Discharge Protocol: Document 11/30/24 05:55 EA (Rec: 11/30/24 05:57 EA No Response) NST Note 4 Para (# of births) 2 EDC 01/29/25 Gestational Age In Weeks & Days 31 Weeks & 3 Days High Risk Factors Diabetes - Gestational Diet Controlled,History of Labor/Delivery Patient Presented with Complaint(s) of Contractions/cramping Reactive Yes Appropriate for Gestational Age Yes RN EHwarren RN Date 11/30/24 Reactive Yes Appropriate for Gestational Age Yes RN Joel RN Date 11/30/24 OB NST charge Yes Complete NST Note via Write Note Yes The provider's electronic signature indicates the NST is reactive/appropriate for gestational age. *Note to provider: If an addendum is required, open the patient's chart and click on the note under the Nurse/Allied Health tab.
== END 2024-11-30 05:40 | disposition home or self-care (01) ==
LOC: OB OUT 03:24 → OB 03:24
PROVIDERS: PCP Family Medicine; Visit Provider Obstetrics & Gynecology
DX: O24.419 Gestational diabetes mellitus in pregnancy, unspecified control (principal); O47.03 False labor before 37 completed weeks of gestation, third trimester; Z3A.31 31 weeks gestation of pregnancy
CPT/HCPCS: 59025; G0463; A9270; J0702

== ENCOUNTER 2024-12-04 08:02 | Outpatient (CLI) | payer BC, SELFPAY ==
--- NOTE | 2024-12-04 08:15 | CRLHL7_ITS ---
For Patients: As a result of the Century Cures Act, medical imaging exams and procedure reports are released immediately into your electronic medical record. You may view this report before your referring provider. If you have questions, please contact your health care provider. OB ULTRASOUND LMP: 04/24/2024. KARINA by LMP: 01/29/2025. GA: 32 w, 0 d. Single. Comparison: 11/20/2024, 11/10/2024, 10/12/2024. INDICATION: Rheumatoid arthritis. TECHNIQUE: Real time grayscale imaging of the fetus was performed. Transabdominal. CERVIX: Visualized. TA measurement: 3.8 cm. POSITIONING: Vertex. AMNIOTIC FLUID: MARILU: 24.4 cm. 9.4 cm SDP (N: greater than 2 x 1 cm) BIOPHYSICAL PROFILE: 2: Gross body movements 2: tone 2: Respiratory activity 2: Amniotic fluid SDP (N: greater than 2 x 1 cm) 8/8: Total score PLACENTA: Technique: Transabdominal. PLACENTA POSITION: Anterior. DOPPLER: heart rate: 137 bpm. BIOMETRY: BPD: 9.1 cm. 36 w, 6 d, >97 percent. HC: 33.0 cm. 37 w, 4 d, >97 percent. AC: 30.8 cm. 34 w, 5 d, >97 percent. FL: 6.0 cm. 31 w, 2 d, 19.1 percent. FL/AC ratio: 19.5 percent. HC/AC ratio: 1.1. EFW: 2391 g. Weight: 5 lbs, 4 oz. age by this US: 35 w, 1 d. KARINA by this US: 01/07/2025. Percentile by KARINA: 96.2 percent. IMPRESSION: 1. Normal biophysical profile score 8/8. 2. Amniotic fluid single deepest pocket 9.4 cm. MARILU 24.4 cm. 3. Estimated weight 96th percentile. Abdominal circumference, head circumference, and biparietal diameter all greater than 97th percentile. 4. Sonographic gestational age 35 weeks 1 day and sonographic due date 01/07/2025. Sonographic age is 21 days ahead of the clinical age. Igor Gregg M.D. Diagnostic Radiologist [email or web address] NICKI/clayton jj/Dictated by: Igor Gregg MD @ 12/04/2024 12:59:00 PM (Electronically Signed)
== END 2024-12-04 08:03 | disposition home or self-care (01) ==
LOC: US 08:02
PROVIDERS: PCP Family Medicine; Visit Provider Obstetrics & Gynecology
DX: O26.893 Other specified pregnancy related conditions, third trimester (principal); M06.9 Rheumatoid arthritis, unspecified; Z3A.32 32 weeks gestation of pregnancy
CPT/HCPCS: 76816; 76819

== ENCOUNTER 2024-12-11 09:35 | Outpatient (CLI) | payer BC, SELFPAY ==
--- NOTE | 2024-12-11 10:00 | CRLHL7_ITS ---
For Patients: As a result of the Cures Act, medical imaging exams and procedure reports are released immediately into your electronic medical record. You may view this report before your referring provider. If you have questions, please contact your health care provider. OB ULTRASOUND KARINA by LMP or US: 01/29/2025. GA: 33 w, 0 d. Single. Comparison: 12/04/2024, 11/20/2024, 11/10/2024, 10/12/2024. INDICATION: Rheumatoid arthritis. TECHNIQUE: Real time grayscale imaging of the fetus was performed. Transabdominal. CERVIX: Not visualized. POSITIONING: Vertex. AMNIOTIC FLUID: MARILU: 24.0 cm. 9.2 cm. SDP (N: greater than 2 x 1 cm) BIOPHYSICAL PROFILE: 2: Gross body movements 2: tone 2: Respiratory activity 2: Amniotic fluid SDP (N: greater than 2 x 1 cm) 8/8: Total score PLACENTA: Technique: Transabdominal. PLACENTA POSITION: Anterior. DOPPLER: heart rate: 159 bpm. IMPRESSION: 1. Normal biophysical profile score 8/8. 2. Amniotic fluid single deepest pocket 9.2 cm. MARILU 24.0 cm. Igor Gregg M.D. Diagnostic Radiologist [email or web address] NICKI/clayton arnold/Dictated by: Igor Gregg MD @ 12/11/2024 12:15:00 PM (Electronically Signed)
== END 2024-12-11 09:36 | disposition home or self-care (01) ==
LOC: US 09:35
PROVIDERS: PCP Family Medicine; Visit Provider Obstetrics & Gynecology
DX: O26.893 Other specified pregnancy related conditions, third trimester (principal); M06.9 Rheumatoid arthritis, unspecified; Z3A.33 33 weeks gestation of pregnancy
CPT/HCPCS: 76819

== ENCOUNTER 2024-12-18 08:12 | Outpatient (CLI) | payer BC, SELFPAY ==
--- NOTE | 2024-12-18 08:15 | CRLHL7_ITS ---
For Patients: As a result of the Cures Act, medical imaging exams and procedure reports are released immediately into your electronic medical record. You may view this report before your referring provider. If you have questions, please contact your health care provider. OBSTETRICAL ULTRASOUND ??? BIOPHYSICAL PROFILE, 12/18/2024 INDICATION: Rheumatoid arthritis. CLINICAL HISTORY: KARINA by LMP: 01/29/2025 Gestational Age: 34 weeks 0 days COMPARISON: 12/11/2024, 12/04/2024, 11/20/2024 TECHNIQUE: Real-time greenwood-scale transabdominal imaging of the fetus and pelvis was performed. FINDINGS: Fetus: Single Cervix: Not visualized positioning: Vertex Amniotic Fluid: MARILU: 31.8 cm 11.4 cm SDP BIOPHYSICAL PROFILE: Gross body movements: 2 tone: 2 Respiratory activity: 2 Amniotic fluid SDP: 2 Total score: 8 Placenta technique: Transabdominal Placenta position: Anterior heart rate: 145 bpm IMPRESSION: 1. Normal biophysical profile score of 8/8. 2. Amniotic fluid single deepest pocket 11.4 cm. MARILU 31.8 cm. IGOR OGLSEBY M.D. Diagnostic Radiologist [email or web address] Transcribed: 2:[address]/Dictated by: Igor Oglesby MD @ 12/18/2024 12:47:00 PM (Electronically Signed)
== END 2024-12-18 08:13 | disposition home or self-care (01) ==
LOC: US 08:12
PROVIDERS: PCP Family Medicine; Visit Provider Obstetrics & Gynecology
DX: O26.893 Other specified pregnancy related conditions, third trimester (principal); M06.9 Rheumatoid arthritis, unspecified; Z3A.34 34 weeks gestation of pregnancy
CPT/HCPCS: 76819

== ENCOUNTER 2024-12-25 07:55 | Outpatient (CLI) | payer BC, SELFPAY ==
--- NOTE | 2024-12-25 08:15 | CRLHL7_ITS ---
For Patients: As a result of the Cures Act, medical imaging exams and procedure reports are released immediately into your electronic medical record. You may view this report before your referring provider. If you have questions, please contact your health care provider. OB ULTRASOUND BIOPHYSICAL PROFILE, 12/25/2024 CLINICAL HISTORY: Rheumatoid arthritis. COMPARISON: 12/18/2024, 12/11/2024, 12/04/2024, 11/20/2024. TECHNIQUE: Real time greenwood scale imaging of the fetus was performed. Transabdominal imaging performed. FINDINGS: KARINA by LMP: 01/29/2025. GA: 35 weeks 0 days. GESTATION: Single. CERVIX: Not visualized. POSITIONING: Vertex. AMNIOTIC FLUID: 33.5 cm MARILU. 10.2 cm SDP. BIOPHYSICAL PROFILE: Gross Body Movements: 2 Tone: 2 Respiratory Activity: 2 Amniotic Fluid SDP: 2 Total Score: 8/8 PLACENTA: Technique: TA. Placenta Position: Anterior. DOPPLERS: Heart Rate: 145 bpm. IMPRESSION: 1. Normal biophysical profile score of 8/8. 2. Amniotic fluid single deepest pocket 10.2 cm. Four quadrant MARILU 33.5 cm. Igor Gregg M.D. Diagnostic Radiologist [email or web address] Transcribed: 11:17 am DW/Dictated by: Igor Gregg MD @ 12/25/2024 8:25:00 AM (Electronically Signed)
== END 2024-12-25 07:56 | disposition home or self-care (01) ==
LOC: US 07:56
PROVIDERS: PCP Family Medicine; Visit Provider Obstetrics & Gynecology
DX: O26.893 Other specified pregnancy related conditions, third trimester (principal); M06.9 Rheumatoid arthritis, unspecified; Z3A.35 35 weeks gestation of pregnancy
CPT/HCPCS: 76819; 87081; 87653

== ENCOUNTER 2025-01-01 08:17 | Outpatient (CLI) | payer BC, SELFPAY ==
--- NOTE | 2025-01-01 08:15 | CRLHL7_ITS ---
For Patients: As a result of the Century Cures Act, medical imaging exams and procedure reports are released immediately into your electronic medical record. You may view this report before your referring provider. If you have questions, please contact your health care provider. OB ULTRASOUND BIOPHYSICAL PROFILE, 01/01/2025 CLINICAL HISTORY: Rheumatoid arthritis. COMPARISON: 12/25/2024, 12/18/2024, 12/11/2024, 12/04/2024. TECHNIQUE: Real time greenwood scale imaging of the fetus was performed. Transabdominal imaging performed. FINDINGS: LMP: 04/24/2025. KARINA by LMP: 01/29/2025. GA: 36 weeks 0 days. GESTATION: Single. CERVIX: Not visualized. POSITIONING: Vertex. AMNIOTIC FLUID: 23.4 cm MARILU. 8.3 cm SDP. BIOPHYSICAL PROFILE: Gross Body Movements: 2 Tone: 2 Respiratory Activity: 2 Amniotic Fluid/SDP: 2 Total Score: 8/8 PLACENTA: Technique: TA. Placenta Position: Anterior. DOPPLERS: Heart Rate: 126 bpm. BIOMETRY: BPD: 9.9 cm, 40 weeks 5 days. >97% HC: 36.3 cm, OOR. >97% AC: 34.8 cm, 38 weeks 5 days. >97% FL: 6.6 cm, 34 weeks 1 day. 8.3% FL/AC Ratio: 19.1% HC/AC Ratio: 1.0 EFW: 3480 grams, 7 lb 11 oz. Age by this US: 37 weeks 6 days. KARINA by this US: 01/16/2025. Percentile by KARINA: 96.9% IMPRESSION: 1. Sonographic gestational age 37 weeks 6 days and sonographic due date 01/16/2025. Sonographic age is 13 days ahead of clinical age. 2. Estimated weight 97th percentile. Abdominal circumference, head circumference and BPD all greater than 97th percentile. 3. Normal biophysical profile score of 8/8. 4. Amniotic fluid single deepest pocket 8.3 cm. MARILU 23.4 cm. Igor Gregg M.D. Diagnostic Radiologist [email or web address] Transcribed: 10:28 am DW/Dictated by: Igor Gregg MD @ 01/04/2025 6:12:00 AM (Electronically Signed)
== END 2025-01-01 08:18 | disposition home or self-care (01) ==
LOC: US 08:17
PROVIDERS: PCP Family Medicine; Visit Provider Obstetrics & Gynecology
DX: O26.893 Other specified pregnancy related conditions, third trimester (principal); M06.9 Rheumatoid arthritis, unspecified; Z3A.36 36 weeks gestation of pregnancy
CPT/HCPCS: 76816; 76819

== ENCOUNTER 2025-01-08 08:16 | Outpatient (CLI) | payer BC, SELFPAY ==
--- NOTE | 2025-01-08 08:15 | CRLHL7_ITS ---
For Patients: As a result of the Cures Act, medical imaging exams and procedure reports are released immediately into your electronic medical record. You may view this report before your referring provider. If you have questions, please contact your health care provider. OB ULTRASOUND [id number]/BIOPHYSICAL PROFILE, 01/08/2025 CLINICAL HISTORY: Rheumatoid arthritis. COMPARISON: 01/01/2025, 12/25/2024, 12/18/2024. TECHNIQUE: Real time greenwood scale imaging of the fetus was performed. Transabdominal imaging performed. FINDINGS: KARINA by LMP: 01/29/2025. GA: 37 weeks 0 days. GESTATION: Single. CERVIX: Not visualized. POSITIONING: Vertex. AMNIOTIC FLUID: 30.6 cm MARILU. 9.2 cm SDP. BIOPHYSICAL PROFILE: Gross Body Movements: 2 Tone: 2 Respiratory Activity: 2 Amniotic Fluid: 2 Total Score: 8 PLACENTA: Technique: TA. Placenta Position: Anterior. DOPPLERS: Heart Rate: 130 bpm. IMPRESSION: Normal biophysical profile score of 8/8. Amniotic fluid single deepest pocket 9.2 cm. MARILU 30.6 cm. Igor Gregg M.D. Diagnostic Radiologist [email or web address] Transcribed: 1:21 pm DW/Dictated by: Igor Gregg MD @ 01/08/2025 11:20:00 AM (Electronically Signed)
== END 2025-01-08 08:17 | disposition home or self-care (01) ==
LOC: US 08:16
PROVIDERS: PCP Family Medicine; Visit Provider Obstetrics & Gynecology
DX: M06.9 Rheumatoid arthritis, unspecified (principal); O26.893 Other specified pregnancy related conditions, third trimester; Z3A.37 37 weeks gestation of pregnancy
CPT/HCPCS: 76819

== ENCOUNTER 2025-01-08 13:34 | Inpatient (IN) | payer BC, SELFPAY ==
[2025-01-08] VITALS (40 sets, daily range): BP systolic 102–129; BP diastolic 50–76; PULSE 52–113; RESP 16–18; TEMP 36.4–37; O2SAT 98–99; BMI 29.1
[2025-01-08] MEDS: LACTATED RINGERS 1000 ML 1,000 ML 125 ML IV (13:44)
[2025-01-08 14:15] LABS: Basophils Absolute Auto 0.01 K/uL (0.00-0.30); Basophils Percent Auto 0.1 % (0.0-3.0); Eosinophils Absolute Auto 0.03 K/uL (0.00-0.50); Eosinophils Percent Auto 0.3 % (0.0-7.0); Hemoglobin* 13.3 gm/dL (12.0-16.0); Immature Granulocytes Abs Auto 0.19 K/uL (0.00-0.30); Lymphocytes Absolute Auto 2.56 K/uL (0.90-2.90); Lymphocytes Percent Auto 26.4 % (20-44); Mean Corpuscular HGB Conc 34 gm/dL (32-36); Mean Corpuscular Hemoglobin 30 pg (26-34); Mean Corpuscular Volume 88 fL (80-100); Neutrophils Absolute Auto 6.24 K/uL (1.7-7.0); Neutrophils Percent Auto 64.2 % (42.0-72.0); Platelet Count* 150 K/uL (140-440); RDW Coefficient of Variation % 12.7 % (11.5-15.5); Red Blood Count 4.43 m/uL (4.00-5.20); White Blood Count* 9.71 K/uL (4.50-11.00)
[2025-01-08 14:22] LABS: Slide Review Reflex No
[2025-01-08] MEDS: LACTATED RINGERS 1000 ML 1,000 ML IV (15:00)
[2025-01-08] MEDS: BUPIVACAINE 0.25% PF 10 ML 10 ML ML EPIDURAL (15:46)
[2025-01-08] MEDS: ROPIVACAINE 0.2% 100 ml 100 ML 12 MG EPIDURAL (15:46)
--- NOTE | 2025-01-08 16:16 | P.ANBPRC_ITS ---
[facility] Medical History Nausea and vomiting during ?O21.9 - Vomiting of , unspecified (ICD-10) Parvovirus B19 ?B34.3 - Parvovirus infection, unspecified (ICD-10) UTI (urinary tract infection) ?N39.0 - Urinary tract infection, site not specified (ICD-10) PCOS (polycystic ovarian syndrome) ?E28.2 - Polycystic ovarian syndrome (ICD-10) Pelvic floor weakness ?N81.89 - Other female genital prolapse (ICD-10) Rheumatoid arthritis (2015) ?M06.9 - Rheumatoid arthritis, unspecified (ICD-10) Plaque psoriasis (2017) ?L40.0 - Psoriasis vulgaris (ICD-10) History of gestational diabetes ?Z86.32 - Personal history of gestational diabetes (ICD-10) Surgical History Normal spontaneous vaginal delivery ?O80 - Encounter for full-term uncomplicated delivery (ICD-10) History of cholecystectomy ?Z90.49 - Acquired absence of other specified parts of digestive tract (ICD- 10) H/O oral surgery ?Z98.890 - Other specified postprocedural states (ICD-10) Family History Mother Rheumatoid arthritis Father High blood pressure High cholesterol Diabetes Social History Narrative: RN working in our Center. . Nonsmoker. Alcohol use: 1-2 drinks per week What is your current living situation?: I presently have a place to live Problems where you live: no known problems In the past 12 months, utilities in danger of being shut off: no In past 12 months, lack of transportation kept you from medical appts, meetings, work, or getting things needed for daily living: no In the past 12 mos, have been you worried that your food would run out before you had money to buy more?: never true In the past 12 mos, the food you bought just didn't last and you didn't have money to buy more?: never true Smoking Status: Never smoker How often do you have a drink containing alcohol: never AUDIT-C Alcohol total score: 0 Non-prescribed substance use: denies use Caffeine: No How often does anyone, including family, friends and others, physically hurt you : never How often does anyone, including family, friends and others, insult or talk down to you: never How often does anyone, including family, friends and others, threaten you with harm: never How often does anyone, including family, friends and others, scream or curse at you: never Are you using contraception or practicing any form of control: No Meds Home Medications and Allergies Home Medications ?Medication ?Instructions ?Recorded ?Confirmed ?Type adalimumab 40 mg/0.4 mL See Rx Instructions subcut . COMPLEX 01/25/22 01/08/25 History subcutaneous pen kit sertraline 100 mg tablet 100 mg PO QDAY #90 tabs 11/2701/08/25 Rx ondansetron HCl 4 mg tablet 4 mg PO Q8H 5 days #30 tab s 06/19/24 01/08/25 Rx aspirin 81 mg chewable tablet 81 mg PO QDAY 08/14/24 0 01/08/25 History sertraline 50 mg tablet 50 mg PO QDAY #90 tabs 08/2001/08/25 Rx PNV comb 46-iron cb-FA-dha 7 tab PO 09/18/24 01/08/25 History mg-400 mcg-100 mg tablet hydroxyzine pamoate 25 mg capsule 25 - 50 mg (1 - 2 x 25 mg) PO QID 10/12/24 01/08/25 Rx PRN anxiety #30 caps Test Strips #100 ea 11/11/24 01/08/25 Rx lancets #100 ea 11/11/24 01/08/25 Rx insulin NPH isoph U-100 human 100 12 unit (0.12 mL) dixon bcut QHS #10 mL 12/11/24 01/08/25 Rx unit/mL subcutaneous suspension (Novolin N NPH U-100 Insulin isophane) insulin syringe-needle U-100 0.3 #100 ea 12/11/2412/27 Rx mL 30 gauge x 1 (Comfort EZ Insulin Syringe) insulin syringe-needle U-100 0.5 #100 ea 12/11/2412/27 Rx mL 31 gauge x 12/11 (CareTouch Insulin Syringe) Allergies Allergy/AdvReac Type Severity Reaction Status Date / Time No Known Drug Allergies Allergy Verified 01/08/25 09:13 Results Labs Labs: Laboratory Results - last 24 hr 01/08/25 13:43 WBC 9.71 RBC 4.43 Hgb 13.3 Hct 39.0 MCV 88 MCH 30 MCHC 34 RDW Coeff of Kimberli 12.7 Plt Count 150 Neut % (Auto) 64.2 Lymph % (Auto) 26.4 [place] % (Auto) 7.0 Eos % (Auto) 0.3 Baso % (Auto) 0.1 Neut # (Auto) 6.24 Lymph # (Auto) 2.56 [place] # (Auto) 0.70 Eos # (Auto) 0.03 Baso # (Auto) 0.01 Abs Immat Gran (auto) 0.19 Imm/Tot Granulo (auto) 2.0 Blood Type A Positive Antibody Screen NEGATIVE Vital Signs Vital Signs: Last Vital Signs Temp 98.3 F 01/08/25 15:53 Pulse 113 H 01/08/25 16:01 Resp 18 01/08/25 15:53 BP 110/60 01/08/25 16:01 Pulse Ox 98 01/08/25 15:57 Weight: 72.291 kg Height: 157.48 cm Anesthesia Procedures Epidural Insertion Patient Location: OB Start Time: 14:45 Stop Time: 15:45 Start Date: 01/08/25 Stop Date: 01/08/25 Reason for Block: procedure for pain Patient Position: sitting Performed By: Bobby Slater Preanesthetic Checklist: IV checked, risks and benefits discussed, surgical consent, monitors and equipment checked, pre-op evaluation, timeout performed and anesthesia consent Prep: chlorhexidine gluconate Monitoring: blood pressure monitoring, continuous pulse oximetry and heart rate Approach: midline Vertebral Space: lumbar (1-5) Epidural Technique: CHATO saline Needle Type: Tuohy needle Injection Technique: continuous catheter Needle gauge: 17 Needle Length (cm): 10 cm Needle Insertion Depth (cm): 6 Catheter Gauge: 19 Catheter Type: multi-orifice Catheter at skin depth (cm): 12 Test Dose Result: negative and lidocaine 1.5% with epinephrine 1 to 200,000
[2025-01-08] MEDS: OXYTOCIN 30 unit/500 ML in NS 30 UNIT/500 ML BAG IVPB (17:05)
--- NOTE | 2025-01-08 18:20 | P.LDBA_ITS ---
Subjective History of Present Illness Narrative: Patient is being admitted to Labor and Delivery for labor. She is a 29 year old at 37 0/7 weeks gestation. Her full history and physical was dictated by Dr. Khoury earlier today. Please see this for details. Specific Issues/Plans [id number] Partner: Ramon Son: Chaim Flores. Daughter: Katie Echols Baby: [place]. Nurse on Center H&P: CGM on 01/08/25 #GDM A2- 12/11/24 * Declined 3 hour GTT, planning 2 weeks of QID BG monitoring * Using Dexcom for monitoring * Started NPH 12 u QHS on 12/11 > revised to 6U BID on 12/11 -> Increased to NPH 8U BID on 12/25 -> 12/30 10u QHS, 8u QAm. As of 01/04, 10 u BID. * Weekly BPP beginning 32 weeks * Delivery at 39 weeks -> well controlled, suboptimal control [id number] #Polyhydramnios dx at 28 weeks MARILU Q 2 weeks 12/18: MARILU 31.8, SDP 11.4 12/25: MARILU 33.5cm, SDP 10.2 01/01: RESOLVED SDP 8.3cm, AFT 23.4cm #Suspected macrosomia - Serial growth US and testing at 32 weeks previously ordered - See US details below - 12/04: EFW 96%ile. - See US below 01/01: EFW 97% # uterine contractions w/o labor -s/p course of betamethasone on 12/01/24 -Utilizing nifedipine 10 mg if needed # Rheumatoid arthritis and psoriasis * Managed by home visit field care manager, treated with Humira * Plans to stop Humira in 3rd trimester; done as of 24 weeks * Testing for SSA and SSB antibodies with 1st labs: negative * Level 2 US ordered 08/14/24 * Monthly US for growth * Weekly BPP beginning 32 weeks- testing form completed. * Delivery 39th week # Depression and anxiety with panic attacks * Increased sertraline to 150 mg daily 08/20/2024 * Added hydroxyzine 10/12/24 * History of exacerbation; considering Zurzuvae * *Struggling with mood at 28 weeks, declined further meds/therapy referral* # History of anorexia / restrictive food intake * Follow if diagnosed with GDM # Anovulatory infertility. Conceived on first cycle of letrozole # Last child infected with enterovirus viremia on DOL #8, then with RSV Imagin06/10/24: Viable IUP with CRL 6 wks, 6 days, sonographic KARINA 01/28. Very small perigestational hemorrhage measuring 10 mm in greatest dimension. Right ovarian hemorrhagic cyst measures 2.7 cm. 06/18/24: CRL 8 1/7 weeks, RENZO 1.6 X 0.6 X 0.5 cm, complex bilateral ovarian cysts, 2.4 cm on right and 2.5 cm on left. Level 2 US 09/16/24: normal anatomy, suspected macrosomia, normal fluid. 10/12/24: cephalic, EFW 86%, BPD 96%, HC 91%, AC 88%, FL 29%. SDP 5.7 cm. 11/10/2024: Cephalic, MARILU 25.6, SDP 9.3 cm, EFW > 97%, BPD > 97%, HC > 97%, FL 24%. 11/20: MARILU 23.5, SDP 8.4 cephalic 12/04: EFW 2391g at 96%ile, FHR 137bpm, MVP 9.38 but MARILU 24.42cm. 12/18: MARILU 31.8, SDP 11.4 12/25: Vtx. SDP 10.2. MARILU 33.5cm 01/01: Vtx. SDP 8.3. MARILU 23.4. EFW 3480 g, 7 lb 11 oz, 97%. BPD > 97%, HC > 97%, AC > 97%, FL 8% Vaccinations: COVID: DECLINES Flu: 04/30/24 Tdap: 11/20 RSV: n/a 32 week mental health: 12/04/2024 34 week HGB: 12.6 12/18/24 36 GBS: negative 12/25/24 Last pap: ASCUS, HPV - 12/18/23 OB - Problem Based A/P Additional Plan (1) : Status: Acute Plan Labor in early term. Reassuring status with category 1 tracing. GDM A2, on insulin. Continuous monitoring. Begin Pitocin at a low dose for augmentation of labor. Begin blood sugar testing per protocol. Anticipate spontaneous vaginal delivery. Delivery/Labor/Induction Plan Plan: expectant management OB Exam Physical Exam Vital signs: Temp Pulse Resp BP Pulse Ox 97.6 F 58 L 18 111/58 L 98 01/08/25 18:00 01/08/25 18:17 01/08/25 18:00 01/08/25 18:17 01/08/25 15:57 Narrative: Physical exam: Vitals as noted above. General: No acute distress. At our 1st meeting around 2:00 p.m., she is ambulating. By her exam at 4:30 p.m., she has had an epidural and is lying in bed. Psych: Alert and oriented x 3, full affect HEENT: Normocephalic, atraumatic Abdomen: Soft, nontender, gravid Pelvic exam: Cervical exam at 4:30 p.m.: 5.5 cm, 80%,-0.5 station, bulging bag of water. This ruptured on exam, spilling copious clear fluid. tracing: Baseline 120, accelerations to 150, no decelerations, moderate variability. Contractions are in consistent and overall infrequent.
[2025-01-08] MEDS: ONDANSETRON 2 MG/ML inj 4 MG IV (18:29)
--- NOTE | 2025-01-08 19:42 | W.PM.VAGD1_ITS ---
Procedure Procedure Done: [facility] Procedure Details: The patient is a 29 year-old -0-1-2 woman admitted on 01/08/25 at 37 Weeks, 0 Days gestation for labor.? Cervical exam on admission was 5 cm with membranes intact in vertex presentation.? heart rate demonstrated baseline 120 bpm with moderate variability, positive accelerations, no decelerations; a category 1 tracing.? SROM occurred at 4:41 PM with clear fluid. ? Labor Analgesia:? epidural ? Pitocin:? yes ? Labor onset:? 1200 PM ? Complete:?7:04 PM ? Pushing:? 7:04 PM ? heart tones during second stage were notable for recurrent variable decelerations. ? At 7:26 PM a viable male infant delivered in vertex OA presentation over 1st degree vaginal laceration via spontaneous vaginal delivery.? was placed on maternal abdomen.? Cord was clamped and cut after greater than 60 second delay.? Nose and mouth were bulb suctioned.? Infant weight pending.? 6 at 1 minute, 7 at 5 minutes, and 8 at 10 minutes.? Shoulder dystocia:no.? Nuchal cord: no. ? Placenta delivered spontaneously and complete at 7:32 PM with a 3 vessel cord. ? Mother and infant were stable after delivery. ? Lacerations:? first degree vaginal, repaired with a single [id number] suture of 3-0 Vicryl. ? Blood loss: 100 mL. Blood loss measurement type: QBL ? Sponge and needles counts are correct. Events: GDMA2 and Polyhydramnios Intrapartal Events: Labor Augmentation Delivery augmentation: pitocin Delivery monitor: external FHT Route of delivery: Episiotomy description: None Laceration description: Vaginal - 1st Degree Delivery repair: Vicryl Estimated blood loss (mL): 100 Anesthesia type: Epidural
[2025-01-08] MEDS: IBUPROFEN 600 MG TABLET PO (21:22)
[2025-01-09] MEDS: IBUPROFEN 600 MG TABLET PO ×4 (03:05→23:55)
[2025-01-09 05:36] VITALS: BP 110/67; PULSE 59; RESP 16; TEMP 36.6
[2025-01-09 07:22] LABS: Hemoglobin* 12.3 gm/dL (12.0-16.0)
[2025-01-09] MEDS: DOCUSATE SODIUM 100 MG CAPSULE PO (08:47)
[2025-01-09 08:50] VITALS: BP 111/71; PULSE 65; RESP 16; TEMP 36.6
--- NOTE | 2025-01-09 10:21 | P.OBPN_ITS ---
OB - PN:Subj Subjective Date Seen: 01/09/25 Patient comments OB post-: no complaints [place] status: Narrative: 29 yo s/p spontaneous vaginal delivery last evening at 37 weeks gestation. She feels well this morning and is pleased with her delivery experience. She is her infant son. No complaints. OB - PN: Obj Exam Physical Exam: Vital signs: Temp Pulse Resp BP Pulse Ox O2 Del Method 97.9 F 65 16 111/71 98 Room Air 01/09/25 08:50 01/09/25 08:50 01/09/25 08:50 01/09/25 08:50 01/08/25 15:57 01/09/25 08:50 Constitutional: Constitutional: no acute distress Routine Neck Exam: Neck: Present normal inspection Routine Respiratory Exam: Comments: Normal respiratory effort. Routine Abdominal Exam: Abdominal: Present soft; Absent tenderness Fundus: Present firm Routine Extremities Exam: Extremities: Present normal inspection and pedal edema; Absent calf tenderness Routine Neurological Exam: Neurological: Present alert and oriented X3 Routine Psychiatric Exam: Psychiatric: Present normal affect OB - PN: Obj Data Labs Labs: Laboratory Results - last 24 hr 01/08/25 01/09/25 13:43 06:50 WBC 9.71 RBC 4.43 Hgb 13.3 12.3 Hct 39.0 MCV 88 MCH 30 MCHC 34 RDW Coeff of Kimberli 12.7 Plt Count 150 Neut % (Auto) 64.2 Lymph % (Auto) 26.4 [place] % (Auto) 7.0 Eos % (Auto) 0.3 Baso % (Auto) 0.1 Neut # (Auto) 6.24 Lymph # (Auto) 2.56 [place] # (Auto) 0.70 Eos # (Auto) 0.03 Baso # (Auto) 0.01 Abs Immat Gran (auto) 0.19 Imm/Tot Granulo (auto) 2.0 Blood Type A Positive Antibody Screen NEGATIVE OB - PN: A/P Delivery Assessment and Plan (1) care and examination: Status: Acute (2) Lactating mother: Status: Acute Plan day: 1 Plan: routine care
[2025-01-09 11:50] VITALS: BP 100/60; PULSE 60; RESP 16; TEMP 36.7
[2025-01-09] MEDS: ACETAMINOPHEN 500 MG TABLET 1000 MG PO (11:51)
[2025-01-09 16:00] VITALS: BP 100/62; PULSE 83; RESP 16; TEMP 37
--- NOTE | 2025-01-09 16:07 | PM.ANPOST ---
Post Anesthesia Note Post Anesthesia Note Patient seen: Inpatient Respiratory Status: adequate Cardiovascular Status: adequate Mental Status: baseline Pain: adequate Temp: baseline Anesthetic awareness: N/A Complications: none Follow care: none
[2025-01-09 19:17] LABS: Rapid Plasma Reagin (RPR) Non Reactive (Non Reactive)
[2025-01-09 20:37] VITALS: BP 123/74; PULSE 67; RESP 16; TEMP 36.4
[2025-01-09 23:56] VITALS: BP 109/64; PULSE 58; RESP 16; TEMP 36.7
[2025-01-10] MEDS: IBUPROFEN 600 MG TABLET PO ×2 (06:05→12:32)
[2025-01-10 07:13] LABS: Glucose Fasting 77 mg/dl (70-95)
[2025-01-10 07:56] VITALS: BP 113/67; PULSE 64; RESP 16; TEMP 36.7; O2SAT 97
[2025-01-10 09:00] LABS: Glucose 2 Hour 117 mg/dl (70-155)
--- NOTE | 2025-01-10 10:51 | PM.OBDSVD1 ---
DS: Providers Provider Date Seen: 01/10/25 Date of admission: 01/08/25 13:34 Primary care physician: Igor Guadarrama MD Admitting Clinician: Pilar Earl MD Attending Physician on discharge: Huyen Mandujano MD Date of Discharge: 01/10/25 DS: Diagnosis Discharge Diagnosis (1) care and examination: Status: Acute (2) Lactating mother: Status: Acute (3) GDM, class A2: Status: Acute Exam Const: Vital Signs, click to edit/add: Vital Signs - 24 hr 01/09/25 11:50 01/09/25 16:00 01/09/25 20:37 Temperature 98.0 F 98.6 F 97.6 F Pulse Rate [Blood Pressure Cuff] 60 83 67 Respiratory Rate 16 16 16 Blood Pressure [Ri ght Arm] 100/60 100/62 123/74 Pulse Oximetry Oxygen Delivery Me thod Room Air 01/09/25 23:56 01/10/25 07:56 Temperature 98.1 F 98.0 F Pulse Rate [Blood Pressure Cuff] 58 L 64 Respiratory Rate 16 16 Blood Pressure [Ri ght Arm] 109/64 113/67 Pulse Oximetry 97 Oxygen Delivery Me thod Room Air Room Air Documenting provider has reviewed patient's vital signs: yes Common normals: no apparent distress and oriented x3 General appearance: cooperative and comfortable HENMT: Common normals: normocephalic Head and scalp: normocephalic Resp: Common normals: normal respiratory effort Cardio: Common normals: regular rate Rate: regular rate GI: Common normals: soft to palpation and non-tender Inspection: normal to inspection Palpation: soft Extremity: Common normals: normal to inspection and no pedal edema Neuro: Common normals: oriented x3 Psych: Common normals: affect normal OB - DS: Summary Hospital Course Hospital Course: The patient is a 29 year old G 4 P 3013 at 37 weeks gestation that was admitted to the Center on 01/08/25 for labor. She had an uncomplicated vaginal delivery. She delivered a viable male infant. She is breast feeding. the patient has done well. Peripartum Data delivery method: Vaginal Laceration description: Vaginal - 1st Degree Episiotomy description: None complications: none Infant Gender: Male Discharge Plan: Home Status at Discharge Functional status at discharge: independent ambulation Overall status at discharge: patient is back to baseline Time Spent with Patient Time attestation: Total time spent providing and/or coordinating discharge services: Discharge Plan Discharge Disposition: Home, Self-Care Date of Admission: 01/08/25 13:34 Attending Provider on Discharge: Huyen Mandujano Primary Care Provider: Igor Guadarrama Condition: Stable Anticipated Discharge Date/Time: 01/10/25 10:53 Discharge Medications: New ibuprofen 600 mg Tablet 600 mg PO Q6H PRNQty: 30 0RF Continued adalimumab 40 mg/0.4 mL pen injector kit See Rx Instructions subcut .COMPLEX Rx Instructions: inject one - 40 mg/0.4 mL pen every 2 weeks subcut sertraline 100 mg tablet 100 mg PO QDAY Qty: 90 3RF PNV comb 46-iron cb-FA-dha 7-400-100 mg-mcg-mg tablet PO sertraline 50 mg tablet 50 mg PO QDAY Qty: 90 3RF Discontinued ondansetron HCl 4 mg tablet 4 mg PO Q8H 5 Days Qty: 30 1RF aspirin 81 mg tablet,chewable 81 mg PO QDAY Novolin N NPH U-100 Insulin 100 unit/mL suspension 12 unit subcut QHS Qty: 10 0RF (DME) insulin syringe-needle U-100 [Comfort EZ Insulin Syringe] 0.3 mL 30 gauge x 1/2 syringe See Rx Instructions .Route Qty: 100 0RF Rx Instructions: As directed hydroxyzine pamoate 25 mg capsule 25 - 50 mg PO QID PRN (Reason: anxiety) Qty: 30 1RF (DME) Test Strips Misc See Rx Instructions .MEDSUPPLY Qty: 100 3RF Rx Instructions: Test blood sugar 4 times daily. (DME) lancets Misc See Rx Instructions .MEDSUPPLY Qty: 100 3RF Rx Instructions: Test blood sugar 4 times daily. (DME) insulin syringe-needle U-100 [CareTouch Insulin Syringe] 0.5 mL 31 gauge x 5/16 syringe See Rx Instructions .Route Qty: 100 0RF Rx Instructions: Inject BID Discharge Orders: Discharge Order (Routine); Ordered 01/10/25 Ordered By: Huyen Mandujano Patient Education: OB Over the Counter Medication Information, OB Vaginal/Breast Feeding Follow Up Appointments: Igor Guadarrama MD [Primary Care Provider, Family Practice] Forms: MyHealth Info Instructions DS:Data Additional Comments Additional comments: Hgb 12.3
[2025-01-10 17:26] VITALS: BP 120/71; PULSE 74; RESP 16; O2SAT 97
[2025-01-12 05:15] LABS: Glucose Fasting Check 78 mg/dl (60-115)
== END 2025-01-10 17:50 | disposition home or self-care (01) | DRG 560 ==
LOC: OB OUT 13:36 → OB 13:36
PROVIDERS: Admitting Provider Obstetrics & Gynecology; PCP Family Medicine; Visit Provider Obstetrics & Gynecology
DX: O24.424 Gestational diabetes mellitus in childbirth, insulin controlled (principal); O70.0 First degree perineal laceration during delivery; O99.344 Other mental disorders complicating childbirth; F32.A Depression, unspecified; F41.9 Anxiety disorder, unspecified; F41.0 Panic disorder [episodic paroxysmal anxiety]; M06.9 Rheumatoid arthritis, unspecified; L40.9 Psoriasis, unspecified; O40.3XX0 Polyhydramnios, third trimester, not applicable or unspecified; Z3A.37 37 weeks gestation of pregnancy; Z37.0 Single live birth
CPT/HCPCS: 01967; 36415; 82947; 82950; 85018; 85025; 86592; 86850; 86900; 86901; 88307; A9270; J0665; J2405; J2795; J7120